=== PATIENT | male | born 1975 | race Caucasian/White ===

== ENCOUNTER 2016-09-18 06:28 | Day surgery (SDC) | payer MEDICAID ==
[2016-09-18] MEDS ORDERED: PROMETHAZINE HCL 25 MG/ML VIAL ONE (07:28)
[2016-09-18] MEDS ORDERED: PROMETHAZINE HCL 25 MG/ML VIAL IVP ONE (07:30)
[2016-09-18] MEDS ORDERED: MIDAZOLAM 2 MG/2 ML VIAL ONE (07:56)
--- NOTE | 2016-09-18 09:13 | GPN ---
[f rep st] PROCEDURE NOTE DATE OF PROCEDURE: 09/18/2016 PROCEDURE: Colonoscopy with snare polypectomy, biopsy. INDICATION: The patient is a 41-year-old male with a history of C difficile colitis who presents with complaints of abdominal pain as well as diarrhea. CONSENT: Risks, benefits, and alternatives of the procedure were discussed in great detail with the patient. Risk of infection, bleeding, perforation, and sedation were discussed. All questions answered. Informed consent obtained. MEDICATIONS: Propofol. Please see anesthesiology record for details. ESTIMATED BLOOD LOSS: Insignificant. COLONOSCOPY: A rectal exam was done performed and no palpable masses felt. The scope was introduced into the rectum and advanced to the cecum where the ileocecal valve and appendiceal orifice were seen. The quality of prep was good. The terminal ilium was intubated and was normal in appearance. Biopsies were taken to rule out ileitis. Random biopsies were taken throughout the colon. No evidence of colitis was seen. In the descending colon, a 6 mm polyp was seen and removed by snare polypectomy. In the sigmoid colon, 3-4 flat, erythematous lesions were noted. They were all about 1cm in size. I suspect that they are prolapsing folds. Biopsies were taken. Multiple sigmoid diverticula were noted. Retroflexion was performed, and no lesion was noted. IMPRESSION: 1. Biopsies taken to rule out ileitis. 2. Random biopsies taken throughout the colon. 3. Descending colon polyp, status post snare polypectomy. 4. Biopsies taken of possible prolapsing mucosa versus polypoid lesion in sigmoid colon. RECOMMENDATIONS: 1. Follow up on biopsy results. 2. Return to the office in 4 weeks. /[id number]/MODL MTDD
[2016-09-18] MEDS ORDERED: fentaNYL 100 MCG/2 ML INJ ONE (09:28)
--- NOTE | 2016-09-18 10:26 | DX ---
Abdomen, Single View Clinical Indication: Abdominal pain after colonoscopy. Findings: Moderate amount of gas is seen throughout the small bowel and the colon. No evidence of pne umoperitoneum. Liver size is normal. Punctate calcifications over the kidneys seen on prior examinati on are not visualized today. Impression: No evidence of perforation post colonoscopy.
[2016-09-18] MEDS ORDERED: HYDROmorphONE/DILAUDID 2 MG/ML SYR ONE (10:37)
== END 2016-09-18 13:55 | disposition home or self-care (01) ==
LOC: FPAT 06:28 → FSGY 06:28 → FPAT 13:55
PROVIDERS: ATTEND Internal Medicine Gastroenterology
PROC: 0DBB8ZX Excision of Ileum, Via Natural or Artificial Opening Endoscopic, Diagnostic (ICD-10-PCS; 2016-09-18)
PROC: 0DBN8ZX Excision of Sigmoid Colon, Via Natural or Artificial Opening Endoscopic, Diagnostic (ICD-10-PCS; 2016-09-18)
PROC: 0DBE8ZX Excision of Large Intestine, Via Natural or Artificial Opening Endoscopic, Diagnostic (ICD-10-PCS; 2016-09-18)
PROC: 0DBM8ZX Excision of Descending Colon, Via Natural or Artificial Opening Endoscopic, Diagnostic (ICD-10-PCS; principal; 2016-09-18 08:00)
DX: K63.5 Polyp of colon (principal); R19.7 Diarrhea, unspecified; R10.9 Unspecified abdominal pain; R11.2 Nausea with vomiting, unspecified; Z86.19 Personal history of other infectious and parasitic diseases; Z87.891 Personal history of nicotine dependence; Z79.891 Long term (current) use of opiate analgesic
CPT/HCPCS: J1170; J2250; J2550; J3010

== ENCOUNTER 2016-09-21 17:13 | Inpatient (IN) | payer MEDICAID ==
[2016-09-21] MEDS ORDERED: ONDANSETRON 4 MG/2 ML VIAL ONE (17:34)
[2016-09-21] MEDS ORDERED: HYDROmorphONE/DILAUDID 1 MG/ML SYR ONE ×2 (17:34→21:05)
--- NOTE | 2016-09-21 17:37 | EDPHY ---
H & P Stated Complaint: ABDOMINAL PAIN, NAUSEA, VOMITING SINCE WEDNESDAY AFTER COLONOSCOPY Time Seen by Provider: 09/21/16 17:22 HPI/ROS: CHIEF COMPLAINT: Abdominal pain HISTORY OF PRESENT ILLNESS: This patient is a 41 year old male three days status post-colonoscopy who presents to the Emergency Department complaining of moderate to severe abdominal pain that began immediately following the procedure on Wednesday. His pain resolved on Wednesday evening when he was sent home but returned by Wednesday morning and has persisted since then. He likens his pain to the pain he has experienced with kidney stones in the past. He also reports vomiting with one episode of hematemesis. His nausea has not been alleviated with Phenergan or Zofran; his pain has not been alleviated with oxycodone. He denies blood in stool, diarrhea, or fever. He has been passing gas. He has a complicated medical history which includes chronic abdominal pain and vomiting, Clostridium difficile colitis, kidney stone requiring ureteral stent and known renal stones, and diverticulitis. He is followed by Dr. Ingram, x ray service technician. REVIEW OF SYSTEMS: A 10 point review of systems was performed and is negative with the exception of the elements mentioned in the history of present illness. Source: Patient Exam Limitations: No limitations - Personal History Current Tetanus Diphtheria and Acellular Pertussis (TDAP): Yes Tetanus Vaccine Date: 2006 - Medical/Surgical History Hx Asthma: No Hx Chronic Respiratory Disease: No Hx Diabetes: No Hx Cardiac Disease: No Hx Renal Disease: No Hx Cirrhosis: No Hx Alcoholism: No Hx HIV/AIDS: No Hx Splenectomy or Spleen Trauma: No Other PMH: PMH: Renal stones and ureterolithiasis requiring stent, IBS, diverticulitis with microperforation, Clostridium difficile. PSH:HEMORRHOIDS, R ureter stent 12/20 - Social History Smoking Status: Former smoker Additional Social History: He is single, currently unemployed. - Physical Exam Exam: General Appearance: Alert, appears in pain. Eyes: Pupils equal and round, no conjunctival injection, no discharge. Anicteric. ENT, Mouth: Mucous membranes are dry, no oropharyngeal erythema or edema. Neck: No lymphadenopathy, supple. Respiratory: Lungs are clear to auscultation; no wheezes, rales, or rhonchi. Cardiovascular: Regular rate and rhythm; no murmur, rub, or gallop. Gastrointestinal: Abdomen is soft and diffusely tender with lower abdominal voluntary guarding, no rebound, no masses or organomegaly, bowel sounds present. Skin: Warm and dry, no rashes, normal color. Back: Nontender to palpation over the thoracolumbar spine. No CVA tenderness. Extremities: No lower extremity edema, no calf tenderness or swelling. Neurological: Alert and oriented. Moving all four extremities easily and equally. Psychiatric: Normal affect. Constitutional: Initial Vital Signs Temperature (C) 37.1 C 09/21/16 17:14 Heart Rate 100 09/21/16 17:14 Respiratory Rate 18 09/21/16 17:14 Blood Pressure 137/96 H 09/21/16 17:14 O2 Sat (%) 94 09/21/16 17:14 O2 Delivery Mode Room Air Allergies/Adverse Reactions: bee stings, wasp stings Allergy (Intermediate, Uncoded 09/21/16 17:17) swelling Home Medications: Medication Instructions Recorded Nortriptyline HCl [Pamelor 10 mg 10 mg PO HS 09/11/16 (*)] Ondansetron Odt [Zofran Odt 4 mg 4 mg PO Q4 PRN 09/21/16 (*)] Promethazine HCl [Phenergan 25mg 25 mg PO DAILY PRN 09/21/16 (*)] oxyCODONE IR [Oxycodone Ir (*)] 5 mg PO Q6 PRN 09/21/16 Medical Decision Making - Diagnostics Imaging: Study: CT of the abdomen Indication: Pain Results: CT scan of the abdomen was obtained. The results of the study are: diverticulitis with inflammation of the sigmoid colon that is worse than on a CT scan done 1 month ago, inferolateral sigmoid colon perforation, no abscess, no free air under the diaphragm. The study was read by the radiologist, Dr. Luther Gallagher. I viewed the images myself on the PACS system. ED Course/Re-evaluation: Prior medical records and imaging obtained since the patient's colonoscopy was reviewed by myself. IV established. 1L IV NS, 1mg IV Dilaudid, and 4mg IV Zofran administered for pain and nausea. 645 p.m.: Patient has received 1.5 mg of IV Dilaudid and is feeling somewhat better, although still with pain. Abdominal exam is improved. He continues with lower abdominal pain but no guarding. He was told by his x ray service technician that he would need a CT scan if his pain persisted post colonoscopy. He has agreed to a CT scan. He he has had many CT scans of his abdomen and pelvis over the last few years and understands the risk of radiation in this setting. 843 p.m.: CT results reported to me by Dr. Luther Gallagher, radiologist. Sigmoid diverticulitis with inferolateral perforation visualized. Perforation could be related to his colonoscopy and this is the patient's belief; he describes pain upon awakening from anesthesia post colonoscopy. Perforation could also be due to diverticulitis. I discussed these results with the patient as well as my recommendation for admission. He is agreeable to this. He has required repeated doses of Dilaudid for pain control. He has had serial abdominal exams throughout his stay in the emergency department. His exam waxes and wanes. I have spoken with Gastroenterology, Dr. Anai Boyd. Gastroenterology will see the patient in the morning, sooner if required. 9:02 p.m.: Consultation with Dr. Maryjo Allison, hospitalist, who accepts admission. Invanz 1 g IV ordered. He states that he has had difficulty with vancomycin in the past. 10:15 p.m.: I discussed the case with Dr. Aleksandar Monaco, general surgery, who will visit the patient in the hospital. Patient continues with significant abdominal pain, primarily in the lower quadrants, worse on the left than on the right. At this time he is exhibiting guarding. Dr. Monaco evaluated the patient in the emergency department and has recommended abdominal exploration. I was not present for this conversation but the patient has refused surgery. Patient's white blood cell count is 10.9, slightly elevated. He has not had fever. He does not meet sepsis criteria. Differential Diagnosis: I considered a differential diagnosis that includes but is not limited to diverticulitis with perforation, bowel perforation secondary to colonoscopy performed on September 18, exacerbation of chronic abdominal pain, colitis ( Clostridium difficile or other etiology), intra-abdominal abscess, appendicitis , ureterolithiasis, and urinary tract infection. - Data Points Laboratory Results: Laboratory Results 09/21/16 17:49 09/21/16 17:49 Medications Given: Discontinued Medications Hydromorphone HCl (Dilaudid) 1 mg IVP EDNOW ONE Stop: 09/21/16 17:51 Last Admin: 09/21/16 18:00 Dose: 1 mg Hydromorphone HCl (Dilaudid) 0.5 mg IVP EDNOW ONE Stop: 09/21/16 18:13 Last Admin: 09/21/16 18:24 Dose: 0.5 mg Hydromorphone HCl (Dilaudid) 0.5 mg IVP EDNOW ONE Stop: 09/21/16 21:20 Last Admin: 09/21/16 21:19 Dose: 0.5 mg Hydromorphone HCl (Dilaudid) 0.5 mg IVP EDNOW ONE Stop: 09/21/16 20:01 Last Admin: 09/21/16 20:00 Dose: 0.5 mg Hydromorphone HCl (Dilaudid) 0.5 mg IVP Q4HRS PRN PRN Reason: Pain, Severe Unable to Take PO Stop: 10/01/16 22:24 Last Admin: 09/21/16 22:25 Dose: 0.5 mg Hydromorphone HCl (Dilaudid) 0.2 - 0.4 mg IVP Q3 PRN PRN Reason: Pain, Severe Unable to Take PO Stop: 10/02/16 00:29 Last Admin: 09/22/16 01:16 Dose: 0.4 mg Hydromorphone HCl (Dilaudid) 1 mg IVP ONCE ONE Stop: 09/22/16 02:09 Last Admin: 09/22/16 02:20 Dose: 1 mg Sodium Chloride (Ns) 1,000 mls @ 0 mls/hr IV ONCE ONE PRN Reason: Wide Open Stop: 09/21/16 17:51 Last Admin: 09/21/16 18:01 Dose: 1,000 mls Ertapenem 1 gm/ Sodium (Chloride) 100 mls @ 200 mls/hr IV EDNOW ONE PRN Reason: Protocol Stop: 09/21/16 21:44 Last Admin: 09/21/16 21:55 Dose: 100 mls Ondansetron HCl (Zofran) 4 mg IVP EDNOW ONE Stop: 09/21/16 17:51 Last Admin: 09/21/16 18:01 Dose: 4 mg Departure - Departure Disposition: [facility] Clinical Impression: Perforation of sigmoid colon Diverticulitis Qualifiers: Diverticulitis site: large intestine Diverticulitis bleeding: without bleeding Diverticulitis complication: with perforation Qualifier Code: (K57.20) Diverticulitis of large intestine with perforation and abscess without bleeding Condition: Fair Report Scribed for: Agnieszka Samson Report Scribed by: Tomasa Livingston Date of Report: 09/21/16 Time of Report: 17:34 Physician Review and Approval Statement: 09/22/16 11:05 Portions of this note were transcribed by the outside medical sales representative. I, Dr. Agnieszka Samson, personally performed the history, physical exam, and medical decision- making; and confirmed the accuracy of the information in the transcribed note.
[2016-09-21] MEDS ORDERED: ONDANSETRON 4 MG/2 ML VIAL IVP ONE (17:50)
[2016-09-21] MEDS ORDERED: NS 1,000 ML IV ONE (17:50)
[2016-09-21] MEDS ORDERED: HYDROmorphONE/DILAUDID 1 MG/ML SYR IVP ONE ×4 (17:50→21:19)
[2016-09-21] MEDS ORDERED: IOPAMIDOL (ISOVUE-300) 50 ML VIAL IV ONE (19:24)
--- NOTE | 2016-09-21 21:09 | CT ---
CT Abdomen and Pelvis, With Intravenous Contrast History: Severe pain following colonoscopy on September 18, 2016. History of diverticulitis, with richelle roperforation. History of nephrolithiasis. Technique: The patient received 90 mL of Isovue-300 intravenously, given by automated power machine injector. Multidetector helical CT was performed through the abdomen and pelvis using dose reduction technology. Findings: Wall thickening of the sigmoid colon appears worse than August 22, 2016. There are a fe w small bubbles of extracolonic gas in nearby tissues. Coronal images suggest a perforation along th e inferior and lateral margins of the sigmoid colon, with nearby edema. A fluid-filled abscess is no t identified. No free air under the diaphragm. No dilatation of bowel. Numerous stones in the kidneys are similar to previous study, with no hydronephrosis. No ureteral st ones are found. No stones in the urinary bladder. The urinary bladder is not distended. The lung bases are clear. The liver, spleen, pancreas, adrenal glands, and gallbladder are normal. Impressions 1. Active inflammation of sigmoid colon, with perforation inferolaterally. Appearance has worsened in the last month. 2. Bilateral nephrolithiasis, without acute complication. I discussed results with Dr. Samson at 2041 hours.
[2016-09-21] MEDS ORDERED: ERTAPENEM 1 GM in NS 100 ML IV ONE (21:15)
[2016-09-21] MEDS ORDERED: HYDROmorphONE/DILAUDID 1 MG/ML SYR IVP PRN (22:25)
[2016-09-21 22:30] LABS: ANION GAP 12 mEq/L (8-16); CALCIUM 9.7 mg/dL (8.5-10.4); CARBON DIOXIDE 24 mEq/l (22-31); CHLORIDE 106 mEq/L (97-110); CREATININE 1.2 mg/dL (0.7-1.3); GLOMERULAR FILTRATION RATE > 60; GLUCOSE 103 mg/dL (70-100); SODIUM 142 mEq/L (134-144)
[2016-09-21 22:31] LABS: % IMMATURE GRANULYOCYTES 0.3 % (0.0-1.1); ABSOLUTE IMMATURE GRANULOCYTES 0.03 10^3/uL (0.00-0.10); ADD DIFF? NO; ADD MORPH? NO; ADD SCAN? NO; ATYPICAL LYMPHOCYTE FLAG 10 (0-99); FRAGMENT RBC FLAG 0 (0-99); HEMATOCRIT 44.9 % (40.0-51.0); HEMOGLOBIN 15.5 g/dL (13.7-17.5); LEFT SHIFT FLG 20 (0-99); LIPEMIA HEMOLYSIS FLAG 90 (0-99); MEAN CELL HEMOGLOBIN 30.2 pg (27.9-34.1); MEAN CELL HEMOGLOBIN CONCENTR. 34.5 g/dL (32.4-36.7); MEAN CELL VOLUME 87.5 fL (81.5-99.8); PLATELET CLUMPS FLAG 10 (0-99); PLATELET COUNT 225 10^3/uL (150-400); RED BLOOD CELL COUNT 5.13 10^6/uL (4.40-6.38); RED CELL DISTRIBUTION WIDTH 12.5 % (11.5-15.2)
[2016-09-22] MEDS ORDERED: ACETAMINOPHEN 325 MG TAB PO PRN (00:30)
[2016-09-22] MEDS ORDERED: HYDROmorphONE/DILAUDID 1 MG/ML SYR IVP PRN ×2 (00:30→02:09)
[2016-09-22] MEDS ORDERED: ONDANSETRON DISINTEGRATING 4 MG TAB PO PRN (00:30)
[2016-09-22] MEDS: NS 1,000 ML IV SCH ×2 (00:47→08:06)
[2016-09-22 01:57] LABS: COLOR YELLOW; LEUKOCYTE ESTERASE,URINE NEGATIVE (NEGATIVE); NITRITE,URINE NEGATIVE (NEGATIVE)
[2016-09-22] MEDS ORDERED: HYDROmorphONE/DILAUDID 1 MG/ML SYR IVP ONE (02:08)
--- NOTE | 2016-09-22 03:31 | GCON ---
[f rep st] CONSULTATION CHIEF COMPLAINT: Abdominal pain. HISTORY OF PRESENT ILLNESS: This is a 41-year-old male with a significant past medical history consisting of C difficile colitis and diverticulitis, who last Wednesday underwent colonoscopy as part of a diagnostic workup for the above 2 findings. The patient states that he went into the colonoscopy in his usual state of health. However, awoke from a colonoscopy in a significant amount of diffuse abdominal pain. He does endorse that pain did resolve enough for him to go home and feel comfortable that night, but does state that he has been in a significant amount of excruciating abdominal pain through the weekend, which prompted his visit here. He describes the pain as focal left lower quadrant, sharp without radiation, 10 out of 10 in intensity. In addition to the pain, he does endorse nausea with vomiting, with 1 episode of hematemesis at home. He does endorse that his nausea has not been alleviated with either Phenergan or Zofran, and his pain has been not controlled at all with oral oxycodone. He denies having fevers, but does endorse chills at home. He states that his main complaint is pain. PAST MEDICAL HISTORY: Kidney stones, irritable bowel syndrome, diverticulitis, C difficile colitis. PAST SURGICAL HISTORY: Hemorrhoidectomy. Denies having any previous abdominal surgeries. CURRENT MEDICATIONS: Nortriptyline, Zofran, Phenergan, and oxycodone. REVIEW OF SYSTEMS: A full 10-point review was performed and unless explicitly stated above is otherwise negative. PHYSICAL EXAM: VITAL SIGNS: Temperature 37.1, heart rate 100, blood pressure 137/96, respirations 18, and he is 94% on room air. GENERAL: He is alert and oriented, in a moderate amount of distress. CV: He is tachycardic without any murmurs. LUNGS: Clear. ABDOMEN: Diffusely rigid. Markedly tender in the left lower quadrant with rebound tenderness and guarding . EXTREMITIES: Warm. LABS: White blood cell count elevated at 10.9 with left shift. His chemistry is unremarkable with the exception of an elevated glucose at 103. CT scan of the abdomen and pelvis was performed which shows active inflammation of the sigmoid colon with perforation inferolaterally. The appearance has worsened in the last month since his previous film. Bilateral nephrolithiasis without complication. ASSESSMENT AND PLAN: 41-year-old male, status post colonoscopy with perforation of the sigmoid colon. I had a very irwin conversation with the patient today that I am significantly concerned about his exam and his CT scan findings. It is unclear whether or not he has an active diverticular attack, or whether or not this free air is from a perforation from his recent procedure , but given his very concerning abdominal exam I recommended that the patient undergo abdominal exploration in the operating room. I discussed with him the reasons behind this. 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 I attempted to enlighten him as to his diagnosis and to my concern about his abdominal exam on multiple occasions. I was dismissed on multiple occasions after offering him surgery and telling him my concern. He stated over and again vehemently that he wanted to talk with a gastrologist before pursuing anything, but that he would be hesitant at all to ever consider surgery especially here at the [facility], then referring to his mothers previous protracted hospital course after surgery. I counseled the patient with his nurse presents, and once again relayed my concerns to the emergency department attending and the patient's nurse. I will continue to follow. I am very concerned about his exam. I do feel that he does warrant operative exploration given his CT scan findings and his physical exam. This was denied by the patient in the even in light of me counseling him that he could become very sick. I will continue to follow. I would continue IV antibiotics and n.p.o. bowel rest in the meantime. /[id number]/MODL MTDD
[2016-09-22] MEDS ORDERED: NALOXONE HCL 0.4 MG/ML INJ IVP PRN (04:04)
[2016-09-22] MEDS: HYDROmorphONE/DILAUDID 6 MG/30 ML PCA IV PRN ×2 (04:31→21:33)
--- NOTE | 2016-09-22 05:10 | PDGENHP ---
History and Physical - Chief Complaint abdominal pain - History of Present Illness Patient is a 41-year-old male with a history of chronic nephrolithiasis, history of diverticulitis and C diff colitis and IBS who presents to the ED complaining of abdominal pain. He underwent colonoscopy on 09/18 and reports lower abdominal pain has been present since awakening from anesthesia. He is able to pass gas and is having bowel movements, denies any nausea or vomiting, only pain. He also denies any fevers, chills or urinary symptoms. 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 On arrival to the ED patient was afebrile and hemodynamically stable. He was complaining of significant abdominal pain. CT abdomen and pelvis was obtained and revealed sigmoid diverticulitis, worse from previous studies and now with new evidence of bowel perforation. Surgery was consulted and patient was admitted to the hospital service for further management. History Information - Allergies/Home Medication List Allergies/Adverse Reactions: bee stings, wasp stings Allergy (Intermediate, Uncoded 09/21/16 17:17) swelling Home Medications: Nortriptyline HCl [Pamelor 10 mg (*)] 10 mg PO HS 09/11/16 [Last Taken 09/19/16 21:00] Ondansetron Odt [Zofran Odt 4 mg (*)] 4 mg PO Q4 PRN 09/21/16 [Last Taken Unknown] Promethazine HCl [Phenergan 25mg (*)] 25 mg PO DAILY PRN 09/21/16 [Last Taken ] oxyCODONE IR [Oxycodone Ir (*)] 5 mg PO Q6 PRN 09/21/16 [Last Taken Unknown] I have personally reviewed and updated: family history, medical history, social history, surgical history - Past Medical History Additional medical history: Chronic nephrolithiasis. History of diverticulitis. History of C diff colitis. ?IBS - Surgical History Additional surgical history: Ureteral stent - Family History Positive for: non-pertinent - Social History Smoking Status: Former smoker (Quit 9 years ago) Alcohol Use: None Drug Use: None Additional social history: Patient lives with mother Review of Systems ROS: 10pt was reviewed & negative except for what was stated in HPI & below Physical Exam Temp Pulse Resp BP Pulse Ox 36.8 C 74 12 136/88 H 96 01/16/17 23:08 09/21/16 23:08 09/21/16 23:08 09/21/16 23:08 09/21/16 23:08 Constitutional: no apparent distress, appears nourished, uncomfortable Eyes: PERRL, anicteric sclera, EOMI Ears, Nose, Mouth, Throat: moist mucous membranes, hearing normal, ears appear normal, no oral mucosal ulcers Cardiovascular: regular rate and rhythym, no murmur, rub, or gallop, pulses symmetric bilaterally, tachycardia, No JVD, No edema Peripheral Pulses: 2+: dorsalis-pedis (R), dorsalis-pedis (L) Respiratory: no respiratory distress, no rales or rhonchi, clear to auscultation Gastrointestinal: guarding, other (Hypoactive bowel sounds, tenderness to palpation in suprapubic and left lower quadrant.), No rebound Genitourinary: no bladder fullness, no bladder tenderness Skin: warm, normal color, no rashes or abrasions, no fluctuance, no induration, No mottled Musculoskeletal: full muscle strength, no muscle tenderness, normal joint ROM, no joint effusions Neurologic: AAOx3, sensation intact bilaterally, CN II-XII Intact, No weakness, No numbness Psychiatric: not anxious, not encephalopathic, thought process linear Lab Data & Imaging Review 09/21/16 17:49 09/21/16 17:49 WBC 10.92 10^3/uL (3.80-9.50) H 09/21/16 17:49 RBC 5.13 10^6/uL (4.40-6.38) 09/21/16 17:49 Hgb 15.5 g/dL (13.7-17.5) 09/21/16 17:49 Hct 44.9 % (40.0-51.0) 09/21/16 17:49 MCV 87.5 fL (81.5-99.8) 09/21/16 17:49 MCH 30.2 pg (27.9-34.1) 09/21/16 17:49 MCHC 34.5 g/dL (32.4-36.7) 09/21/16 17:49 RDW 12.5 % (11.5-15.2) 09/21/16 17:49 Plt Count 225 10^3/uL (150-400) 09/21/16 17:49 MPV 10.0 fL (8.7-11.7) 09/21/16 17:49 Neut % (Auto) 61.8 % (39.3-74.2) 09/21/16 17:49 Lymph % (Auto) 28.5 % (15.0-45.0) 09/21/16 17:49 [place] % (Auto) 7.8 % (4.5-13.0) 09/21/16 17:49 Eos % (Auto) 1.2 % (0.6-7.6) 09/21/16 17:49 Baso % (Auto) 0.4 % (0.3-1.7) 09/21/16 17:49 Nucleat RBC Rel Count 0.0 % (0.0-0.2) 09/21/16 17:49 Absolute Neuts (auto) 6.76 10^3/uL (1.70-6.50) H 09/21/16 17:49 Absolute Lymphs (auto) 3.11 10^3/uL (1.00-3.00) H 09/21/16 17:49 Absolute Monos (auto) 0.85 10^3/uL (0.30-0.80) H 09/21/16 17:49 Absolute Eos (auto) 0.13 10^3/uL (0.03-0.40) 09/21/16 17:49 Absolute Basos (auto) 0.04 10^3/uL (0.02-0.10) 09/21/16 17:49 Absolute Nucleated RBC 0.00 10^3/uL (0-0.01) 09/21/16 17:49 Immature Gran % 0.3 % (0.0-1.1) 09/21/16 17:49 Immature Gran # 0.03 10^3/uL (0.00-0.10) 09/21/16 17:49 Sodium 142 mEq/L (134-144) 09/21/16 17:49 Potassium 4.0 mEq/L (3.5-5.2) 09/21/16 17:49 Chloride 106 mEq/L (97-110) 09/21/16 17:49 Carbon Dioxide 24 mEq/l (22-31) 09/21/16 17:49 Anion Gap 12 mEq/L (8-16) 09/21/16 17:49 BUN 12 mg/dL (7-23) 09/21/16 17:49 Creatinine 1.2 mg/dL (0.7-1.3) 09/21/16 17:49 Estimated GFR > 60 09/21/16 17:49 Glucose 103 mg/dL (70-100) H 09/21/16 17:49 Calcium 9.7 mg/dL (8.5-10.4) 09/21/16 17:49 Urine Color YELLOW 09/22/16 01:51 Urine Appearance CLEAR 09/22/16 01:51 Urine pH 5.0 (5.0-7.5) 09/22/16 01:51 Ur Specific [place] 1.035 (1.002-1.030) H 09/22/16 01:51 Urine Protein NEGATIVE (NEGATIVE) 09/22/16 01:51 Urine Ketones TRACE (NEGATIVE) H 09/22/16 01:51 Urine Blood NEGATIVE (NEGATIVE) 09/22/16 01:51 Urine Nitrate NEGATIVE (NEGATIVE) 09/22/16 01:51 Urine Bilirubin NEGATIVE (NEGATIVE) 09/22/16 01:51 Urine Urobilinogen NEGATIVE EU (0.2-1.0) 09/22/16 01:51 Ur Leukocyte Esterase NEGATIVE (NEGATIVE) 09/22/16 01:51 Urine Glucose NEGATIVE (NEGATIVE) 09/22/16 01:51 Visualized and Interpreted imaging results: Yes Interpretation: CT abdomen/pelvis: Sigmoid diverticulitis with inferior/ posterior perforation/free air Assessment & Plan Assessment: Patient is a 41-year-old male with a history of nephrolithiasis, diverticulitis and chronic pain syndrome who presents to the ED complaining of abdominal pain after undergoing colonoscopy 09/2012. CT abdomen and pelvis reveals severe sigmoid diverticulitis with new colonic perforation. Plan: # bowel perforation, sigmoid diverticulitis Patient with known diverticulitis and CT reveals worsening of sigmoid inflammation. In addition patient has new intra-abdominal free air. Bowel perforation could be related to worsening of the diverticulitis versus recent colonoscopy. Will cover with antibiotics for acute diverticulitis. GI has been notified. Surgery also on board, however patient adamantly refuses surgical intervention at this time requesting to speak with his manager water wastewater before proceeding with any procedure. Patient currently remains hemodynamically stable and afebrile however is in significant amount of abdominal pain. 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 # leukocytosis Likely related to intraabdominal pathology, however, pt afebrile and does not meet sepsis criteria at this time. Will cont ertapenem for intraabdominal coverage. # nephrolithiasis Present bilaterally as visualized on CT. Will cont IVF hydration and pain control. # dispo: admit to inpt service for > 2 MN stay # gen: NPO DVT ppx: SCDs Full code
[2016-09-22 05:35] LABS: % IMMATURE GRANULYOCYTES 0.3 % (0.0-1.1); ABSOLUTE IMMATURE GRANULOCYTES 0.02 10^3/uL (0.00-0.10); ADD DIFF? NO; ADD MORPH? NO; ADD SCAN? NO; ATYPICAL LYMPHOCYTE FLAG 10 (0-99); FRAGMENT RBC FLAG 0 (0-99); HEMATOCRIT 37.3 % (40.0-51.0); LEFT SHIFT FLG 0 (0-99); LIPEMIA HEMOLYSIS FLAG 90 (0-99); MEAN CELL HEMOGLOBIN 30.2 pg (27.9-34.1); MEAN CELL HEMOGLOBIN CONCENTR. 34.9 g/dL (32.4-36.7); MEAN CELL VOLUME 86.5 fL (81.5-99.8); MEAN PLATELET VOLUME 9.6 fL (8.7-11.7); PLATELET CLUMPS FLAG 0 (0-99); PLATELET COUNT 184 10^3/uL (150-400); RED BLOOD CELL COUNT 4.31 10^6/uL (4.40-6.38); RED CELL DISTRIBUTION WIDTH 12.4 % (11.5-15.2)
[2016-09-22 05:44] LABS: INR 1.07 (0.83-1.16); PROTIME(PATIENT) 13.8 SEC (12.0-15.0)
[2016-09-22 05:48] LABS: ALANINE AMINOTRANSFERASE 35 IU/L (21-72); ALBUMIN 3.5 g/dL (3.5-5.0); ALKALINE PHOSPHATASE 68 IU/L (38-126); ANION GAP 9 mEq/L (8-16); ASPARTATE AMINOTRANSFERASE 18 IU/L (17-59); BILIRUBIN,TOTAL 0.9 mg/dL (0.1-1.4); CALCIUM 8.8 mg/dL (8.5-10.4); CARBON DIOXIDE 25 mEq/l (22-31); CHLORIDE 108 mEq/L (97-110); GLOMERULAR FILTRATION RATE > 60; GLUCOSE 94 mg/dL (70-100); SODIUM 142 mEq/L (134-144); TOTAL PROTEIN 5.7 g/dL (6.3-8.2)
[2016-09-22] MEDS: ERTAPENEM 1 GM in NS 100 ML IV SCH (08:06)
[2016-09-22] MEDS: ONDANSETRON 4 MG/2 ML VIAL IVP PRN ×3 (08:59→23:03)
--- NOTE | 2016-09-22 10:43 | SOAPPROG ---
SOAP Progress Note Assessment/Plan: Assessment/Plan - 41yo M c complicated diverticulitis c free air - Discussed with patient again that I am concerned about his exam despite normalization of WBC. he continues to have a very high need for IV narcotics. I once again told the patient my recommendation would be surgery and he declined. He stated that he knows Dr Person from his mothers hospitalization here previously and would want him to be his surgeon. I have reached out to Dr Person who will see the patient today. Will cont to follow and help coordinate care 09/22/16 10:38 Subjective: Still in a lot of pain, now with more nausea Objective: Vital Signs Temp Pulse Resp BP Pulse Ox 36.6 C 74 14 135/83 H 94 09/22/16 10:00 09/22/16 10:00 09/22/16 10:00 09/22/16 10:00 09/22/16 10:00 Laboratory Results 09/22/16 05:01 09/22/16 05:01 09/21/16 09/22/16 09/23/16 05:59 05:59 05:59 Intake Total 2100 Output Total 300 Balance 1800 PT 13.8 SEC (12.0-15.0) 09/22/16 05:01 INR 1.07 (0.83-1.16) 09/22/16 05:01 ICD10 Worksheet Patient Problems: Problems Problem Status Diagnosed C. difficile diarrhea Acute 07/24/16 Chronic pain Acute Diverticulitis Acute Intractable vomiting Acute Perforation of sigmoid colon Acute Vomiting and diarrhea Acute Abdominal pain Acute Colitis Acute Elevated lipase Acute Free intraperitoneal air Acute Leukocytosis Acute Nausea and vomiting Acute Right distal ureteral calculus Acute Severe sepsis Acute Vomiting Acute
--- NOTE | 2016-09-22 13:00 | HOSPPROG ---
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 Person - continue IV antibiotics - gastroenterology additionally to consult - continue IV Dilaudid # acute leukocytosis- white blood cell count 10.9-> 7.2 this morning on antibiotics oxygen saturation 95% on room air - continue ertapenem # prophylaxis holding Lovenox secondary to perforation and possible surgical requirements # diet NPO # despite all- > 2 MN as requiring acute monitoring IV narcotics and potential surgical intervention I have discussed the case with Gastroenterology Dr. 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 Objective: Vital Signs Temp Pulse Resp BP Pulse Ox 36.9 C 79 16 130/84 H 95 09/22/16 12:00 09/22/16 12:00 09/22/16 12:00 09/22/16 12:00 09/22/16 12:00 Laboratory Results 09/22/16 05:01 09/22/16 05:01 09/21/16 09/22/16 09/23/16 05:59 05:59 05:59 Intake Total 2100 Output Total 300 Balance 1800 PT 13.8 SEC (12.0-15.0) 09/22/16 05:01 INR 1.07 (0.83-1.16) 09/22/16 05:01 - Physical Exam Constitutional: appears nourished Eyes: anicteric sclera Ears, Nose, Mouth, Throat: moist mucous membranes Cardiovascular: regular rate and rhythym Respiratory: no respiratory distress, no rales or rhonchi Gastrointestinal: tenderness, guarding, No normoactive bowel sounds, No rebound Genitourinary: no bladder fullness Skin: warm, normal color Musculoskeletal: No asymmetric calves Neurologic: AAOx3 Psychiatric: agitated Lymph, Heme, Immunologic: no cervical LAD ICD10 Worksheet Patient Problems: Problems Problem Status Diagnosed C. difficile diarrhea Acute 07/24/16 Chronic pain Acute Diverticulitis Acute Intractable vomiting Acute Perforation of sigmoid colon Acute Vomiting and diarrhea Acute Abdominal pain Acute Colitis Acute Elevated lipase Acute Free intraperitoneal air Acute Leukocytosis Acute Nausea and vomiting Acute Right distal ureteral calculus Acute Severe sepsis Acute Vomiting Acute
--- NOTE | 2016-09-22 14:33 | GHP ---
[f rep st] HISTORY AND PHYSICAL DATE OF ADMISSION: 09/21/2016 The patient is known to me from previous admissions. He apparently requests a second opinion as to m anagement of his current sigmoid diverticulitis. The patient is a 41-year-old male who had a colonoscopy on 09/18 after having had some diverticulitis in August. He states he had severe pain upon awakening from his procedure, where he had been pain -free prior to the procedure. He eventually was admitted to the hospital, where a CT scan of the abd omen shows thickening around the sigmoid colon. There is no diffuse free air elsewhere in the abdome n, although there are several small bubbles near the sigmoid colon. ALLERGIES: Bees. No medications. CURRENT MEDICATIONS: Pamelor, Zofran, Phenergan, oxycodone 5 mg p.o. q.6 hours p.r.n. for neck pain. FAMILY HISTORY: Remarkable for his mother having a very extended hospital stay at [facility] several years ago with multiple colonic procedures, fistulas, etc. PHYSICAL EXAMINATION: GENERAL: Oriented, cooperative male. Body habitus is well nourished and nono bese. ABDOMEN: Soft, benign. Minimal tenderness, left lower quadrant suprapubically. No guarding. No masses. The patient states he is passing flatus. Had a stool several days ago. White blood count today is normal. It was 10.9 on admission. I have reviewed his CT scan. He is afebrile. ASSESSMENT: Sigmoid diverticulitis, possibly acute episode following colonoscopy, possible microperf oration during air insufflation. In any event, he clearly has CT findings of thickening around the s igmoid colon. His current exam, normal white count, and afebrile state make me think he will likely improve without surgery. It is possible that he will go on to have further attacks of diverticulitis , even if this heals, but he is very unexcited about a colectomy at this time. I think it is safe to continue medical management at this time. I explained to the patient the imprecise nature of our ability to predict who will need colectomy and who will not and that recovering from today's attack in no way assures us that he will not have furt her attacks. However, since he would like to avoid surgery at this time, I think it is reasonable to continue his Invanz, follow him on a daily basis. I will go ahead and start clear liquids, as his a bdomen is soft, benign and he is passing flatus. /[id number]/MODL
[2016-09-22] MEDS: LORazepam 2 MG/ML INJ IVP PRN ×2 (14:55→23:35)
--- NOTE | 2016-09-22 18:25 | GCON ---
[f rep st] CONSULTATION DATE OF CONSULTATION: 09/22/2016 REFERRING PHYSICIAN: Lindsay Maldonado MD REASON FOR CONSULTATION: Abdominal pain. HISTORY OF PRESENT ILLNESS: Briefly, Mr. Noland is a 41-year-old male, who was admitted to the [facility] on 09/21/2016 for the evaluation of abdominal pain. On 09/18/2016, he had undergone a colonoscop y. At that time, colon polyps were discovered and removed. In the postprocedure recovery area, he h ad a significant amount of abdominal pain. Plain x-ray at that time was negative. With additional d oses of narcotic agents, he felt improved and went home. He reports that through Wednesday and Wednesday he continued to have abdominal discomfort. On Wednesday, with pain continuing to not resolve he prese nted to the emergency room. Emergency room evaluation with CT scan was concerning for microperforati on with or without diverticulitis. He has been admitted for management of this. Overnight, he recei yeimy antibiotics and analgesic care. He reports he has had a significant improvement overall in his s ymptoms. He reports he has had a prior history of diverticulitis. His last episode was approximately 1 year a go. He describes being admitted to the hospital, treated with IV antibiotics, discharged home with o ral antibiotics with ultimate convalescence. He believes his current symptoms are very similar to th ose he suffered at that time. ALLERGIES: Bee stings. MEDICATIONS ON ADMISSION: Nortriptyline, Zofran, Phenergan, and oxycodone. SOCIAL HISTORY: He is a former smoker. He does not use drugs or drink alcohol. FAMILY HISTORY: Negative for colon cancer or colon polyps. PAST MEDICAL HISTORY: Includes nephrolithiasis, diverticulitis, C difficile, and possible irritable bowel syndrome. REVIEW OF SYSTEMS: A complete 10 system review was undertaken with the patient and is negative, exce pt for those details described in the history of present illness. PHYSICAL EXAM: GENERAL: This is a well-developed male, in no apparent distress. HEENT: His pupils are equally round, reactive to light and accommodation. Sclerae are nonicteric. His oropharynx is clear. NECK: Supple without lymphadenopathy. HEART: Regular without murmur. ABDOMEN: Soft, but mildly tender in the left lower quadrant. EXTREMITIES: Free of cyanosis, clubbing, edema. NEURO: Grossly nonfocal. PSYCHIATRIC: Reveals normal mood and affect. SKIN: Warm and dry without rash. MUSCULOSKELETAL: His joints show no arthritis. LABORATORY: Shows an admission white count of 10.92, which has fallen to 7.29. INR 1.07. Sodium of 142, potassium of 4.0, chloride of 108, bicarb of 25, BUN of 10, creatinine of 1.0. AST of 18, ALT of 35, alkaline phosphatase of 68, albumin of 3.5. IMAGING: CT scan of the abdomen and pelvis on 09/21/2016 revealed active inflammation in the sigmoid colon with probable perforation inferolaterally. IMPRESSION AND PLAN: I suspect that Narendra has had some combination of microperforation with or withou t diverticulitis. These may be a consequence of his recent endoscopic evaluation. Fortunately, he i s improving with conservative management with IV antibiotics. If he does not improve with IV antibio tic management, he may benefit from a partial colectomy. This is his second attack of diverticulitis with or without microperforation. It is difficult to determine if he will have subsequent attacks. Luckily, he is improving. /[id number]/MODL
[2016-09-22] MEDS: MAG HYDROX/AL HYDROX/SIMETH 30 ML UDCUP PO PRN (23:27)
[2016-09-23] MEDS: NS 1,000 ML IV SCH ×2 (01:40→09:51)
[2016-09-23 05:27] LABS: HEMATOCRIT 37.9 % (40.0-51.0); HEMOGLOBIN 13.5 g/dL (13.7-17.5); MEAN CELL HEMOGLOBIN 30.1 pg (27.9-34.1); MEAN CELL HEMOGLOBIN CONCENTR. 35.6 g/dL (32.4-36.7); MEAN CELL VOLUME 84.4 fL (81.5-99.8); RED BLOOD CELL COUNT 4.49 10^6/uL (4.40-6.38); RED CELL DISTRIBUTION WIDTH 12.4 % (11.5-15.2)
[2016-09-23 05:44] LABS: ANION GAP 9 mEq/L (8-16); CALCIUM 8.6 mg/dL (8.5-10.4); CARBON DIOXIDE 24 mEq/l (22-31); CHLORIDE 107 mEq/L (97-110); CREATININE 0.9 mg/dL (0.7-1.3); GLOMERULAR FILTRATION RATE > 60; GLUCOSE 95 mg/dL (70-100); SODIUM 140 mEq/L (134-144)
[2016-09-23] MEDS: MAG HYDROX/AL HYDROX/SIMETH 30 ML UDCUP PO PRN (07:14)
[2016-09-23] MEDS: ERTAPENEM 1 GM in NS 100 ML IV SCH (07:29)
--- NOTE | 2016-09-23 07:34 | SOAPPROG ---
SOAP Progress Note Assessment/Plan: Assessment: 1. Perforation/Diverticulitis/Abd pain - improving with supportive care and IV Abx Plan: 1. Perforation/Diverticulitis/Abd pain - mgt per surgery - on abx - on iv pain meds - clear liquid diet - no specific recs beyond the above 2. GERD/Hiccups - had hiccups overnight - patient believes this is from GERD - unlikely to be consequence of intraabdominal process, given otherwise improvement - recommend PPI therapy and PRN acid binding agents (i.e. Maalox, sucralfate, Tums, "miracle mouthwash," etc) - will sign off call with questions 09/23/16 07:30 Subjective: CC: bad hiccups S: overnight had GERD and subsequent hiccups no fever no cough no nausea no vomiting improved overall as to abd pain symptoms still needs periodic doses from ATTENDING ANESTHESIOLOGIST Objective: Vital Signs Temp Pulse Resp BP Pulse Ox 36.7 C 70 16 118/82 H 94 09/23/16 07:04 09/23/16 07:04 09/23/16 07:04 09/23/16 07:04 09/23/16 07:04 Laboratory Results 09/23/16 05:10 09/23/16 05:10 09/22/16 09/23/16 09/24/16 05:59 05:59 05:59 Intake Total 2100 4218 819 Output Total 300 1200 Balance 1800 3018 819 PT 13.8 SEC (12.0-15.0) 09/22/16 05:01 INR 1.07 (0.83-1.16) 09/22/16 05:01 Physical Exam - Physical Exam General Appearance: alert, no apparent distress EENT: PERRL/EOMI Respiratory: lungs clear Cardiac/Chest: regular rate, rhythm Abdomen: normal bowel sounds, non-tender, soft, No organomegaly, No guarding, No rebound Skin: normal color Extremities: normal range of motion Neuro/Psych: no motor/sensory deficits ICD10 Worksheet Patient Problems: Problems Problem Status Diagnosed C. difficile diarrhea Acute 07/24/16 Chronic pain Acute Diverticulitis Acute Intractable vomiting Acute Perforation of sigmoid colon Acute Vomiting and diarrhea Acute Abdominal pain Acute Colitis Acute Elevated lipase Acute Free intraperitoneal air Acute Leukocytosis Acute Nausea and vomiting Acute Right distal ureteral calculus Acute Severe sepsis Acute Vomiting Acute
[2016-09-23] MEDS: ONDANSETRON 4 MG/2 ML VIAL IVP PRN (07:48)
[2016-09-23] MEDS ORDERED: PROMETHAZINE HCL 25 MG/ML VIAL IVP PRN (09:49)
[2016-09-23] MEDS: PANTOPRAZOLE SODIUM 40 MG in NS 100 ML IV SCH ×2 (10:37→20:39)
--- NOTE | 2016-09-23 12:42 | SOAPPROG ---
SOAP Progress Note Assessment/Plan: Assessment: Plan: Subjective: vss, af abd soft, minimally tender to deep paplpation only. access: improving diverticulitis or colon perf. plan: cont iv antibiotics 1-2 more days, then dc home on po's advance diet tomorrow. Objective: Vital Signs Temp Pulse Resp BP Pulse Ox 37.2 C 70 18 123/76 H 99 09/23/16 11:48 09/23/16 11:48 09/23/16 11:48 09/23/16 11:48 09/23/16 11:48 Laboratory Results 09/23/16 05:10 09/23/16 05:10 09/22/16 09/23/16 09/24/16 05:59 05:59 05:59 Intake Total 2100 4218 819 Output Total 300 1200 Balance 1800 3018 819 PT 13.8 SEC (12.0-15.0) 09/22/16 05:01 INR 1.07 (0.83-1.16) 09/22/16 05:01 ICD10 Worksheet Patient Problems: Problems Problem Status Diagnosed C. difficile diarrhea Acute 07/24/16 Chronic pain Acute Diverticulitis Acute Intractable vomiting Acute Perforation of sigmoid colon Acute Vomiting and diarrhea Acute Abdominal pain Acute Colitis Acute Elevated lipase Acute Free intraperitoneal air Acute Leukocytosis Acute Nausea and vomiting Acute Right distal ureteral calculus Acute Severe sepsis Acute Vomiting Acute
[2016-09-23] MEDS: LORazepam 2 MG/ML INJ IVP PRN ×3 (12:51→21:15)
--- NOTE | 2016-09-23 15:35 | HOSPPROG ---
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 Person- consulting - continue IV antibiotics - continue IV Dilaudid # acute leukocytosis- white blood cell count 10.9-> 7.0 this morning on antibiotics oxygen saturation 92% on room air - continue ertapenem # dyspepsia- start IV pantoprazole # prophylaxis holding Lovenox secondary to perforation and possible surgical requirements # diet NPO # despite all- > 2 MN as requiring acute monitoring IV narcotics and potential surgical intervention I have discussed the case with RN will increase to antiemetics and start reflux treatment Subjective: dyspepsia overnight Objective: Vital Signs Temp Pulse Resp BP Pulse Ox 36.9 C 88 18 133/86 H 97 09/23/16 14:00 09/23/16 14:00 09/23/16 14:00 09/23/16 14:00 09/23/16 14:00 Laboratory Results 09/23/16 05:10 09/23/16 05:10 09/22/16 09/23/16 09/24/16 05:59 05:59 05:59 Intake Total 2100 4218 819 Output Total 300 1200 500 Balance 1800 3018 319 PT 13.8 SEC (12.0-15.0) 09/22/16 05:01 INR 1.07 (0.83-1.16) 09/22/16 05:01 - Physical Exam Constitutional: appears nourished Eyes: anicteric sclera Ears, Nose, Mouth, Throat: moist mucous membranes Cardiovascular: regular rate and rhythym, no murmur, rub, or gallop Respiratory: no respiratory distress, no rales or rhonchi Gastrointestinal: normoactive bowel sounds, tenderness Genitourinary: no bladder fullness Skin: warm, normal color Musculoskeletal: No asymmetric calves Neurologic: AAOx3 Psychiatric: interacting appropriately, agitated Lymph, Heme, Immunologic: no cervical LAD ICD10 Worksheet Patient Problems: Problems Problem Status Diagnosed C. difficile diarrhea Acute 07/24/16 Chronic pain Acute Diverticulitis Acute Intractable vomiting Acute Perforation of sigmoid colon Acute Vomiting and diarrhea Acute Abdominal pain Acute Colitis Acute Elevated lipase Acute Free intraperitoneal air Acute Leukocytosis Acute Nausea and vomiting Acute Right distal ureteral calculus Acute Severe sepsis Acute Vomiting Acute
[2016-09-23] MEDS: HYDROmorphONE/DILAUDID 6 MG/30 ML PCA IV PRN (21:48)
[2016-09-24] MEDS: LORazepam 2 MG/ML INJ IVP PRN ×2 (03:26→16:19)
[2016-09-24 05:50] LABS: HEMATOCRIT 37.2 % (40.0-51.0); HEMOGLOBIN 13.3 g/dL (13.7-17.5); MEAN CELL HEMOGLOBIN 30.6 pg (27.9-34.1); MEAN CELL HEMOGLOBIN CONCENTR. 35.8 g/dL (32.4-36.7); MEAN CELL VOLUME 85.5 fL (81.5-99.8); RED BLOOD CELL COUNT 4.35 10^6/uL (4.40-6.38); RED CELL DISTRIBUTION WIDTH 12.2 % (11.5-15.2)
[2016-09-24 06:07] LABS: ANION GAP 12 mEq/L (8-16); CALCIUM 9.1 mg/dL (8.5-10.4); CARBON DIOXIDE 24 mEq/l (22-31); CHLORIDE 104 mEq/L (97-110); GLOMERULAR FILTRATION RATE > 60; GLUCOSE 87 mg/dL (70-100); POTASSIUM 4.1 mEq/L (3.5-5.2); SODIUM 140 mEq/L (134-144)
[2016-09-24] MEDS: PANTOPRAZOLE SODIUM 40 MG in NS 100 ML IV SCH (07:26)
[2016-09-24] MEDS: ERTAPENEM 1 GM in NS 100 ML IV SCH (08:38)
[2016-09-24] MEDS: HYDROmorphONE/DILAUDID 6 MG/30 ML PCA IV PRN (10:02)
[2016-09-24] MEDS ORDERED: oxyCODONE IR 5 MG TAB PO PRN (11:11)
--- NOTE | 2016-09-24 11:15 | SOAPPROG ---
SOAP Progress Note Assessment/Plan: Assessment: Plan: Subjective: vss,af having stools abd soft, non tender. will advance diet, hep lock iv, dc iv narcotics, restart home oxy ir. likely ome tomorrow on po antibiotics for several more days- can follow up with me in the office in a week. Objective: Vital Signs Temp Pulse Resp BP Pulse Ox 36.8 C 89 16 142/90 H 95 09/24/16 08:00 09/24/16 08:00 09/24/16 08:00 09/24/16 08:00 09/24/16 08:00 Laboratory Results 09/24/16 05:10 09/24/16 05:10 09/23/16 09/24/16 09/25/16 05:59 05:59 05:59 Intake Total 4218 2979 Output Total 1200 500 Balance 3018 2479 PT 13.8 SEC (12.0-15.0) 09/22/16 05:01 INR 1.07 (0.83-1.16) 09/22/16 05:01 ICD10 Worksheet Patient Problems: Problems Problem Status Diagnosed C. difficile diarrhea Acute 07/24/16 Chronic pain Acute Diverticulitis Acute Intractable vomiting Acute Perforation of sigmoid colon Acute Vomiting and diarrhea Acute Abdominal pain Acute Colitis Acute Elevated lipase Acute Free intraperitoneal air Acute Leukocytosis Acute Nausea and vomiting Acute Right distal ureteral calculus Acute Severe sepsis Acute Vomiting Acute
--- NOTE | 2016-09-24 12:36 | HOSPPROG ---
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 Less abdominal pain. No fevers. He is very relieved he did not have surgery. He has some anger directed at the health care system and will re-visit with pt certified caregiver. Objective: Vital Signs Temp Pulse Resp BP Pulse Ox 37.0 C 82 16 140/90 H 95 09/24/16 10:00 09/24/16 10:00 09/24/16 10:00 09/24/16 10:00 09/24/16 10:00 Laboratory Results 09/24/16 05:10 09/24/16 05:10 09/23/16 09/24/16 09/25/16 05:59 05:59 05:59 Intake Total 4218 2979 Output Total 1200 500 Balance 3018 2479 PT 13.8 SEC (12.0-15.0) 09/22/16 05:01 INR 1.07 (0.83-1.16) 09/22/16 05:01 - Physical Exam Constitutional: no apparent distress Eyes: PERRL Ears, Nose, Mouth, Throat: moist mucous membranes Cardiovascular: regular rate and rhythym, no murmur, rub, or gallop Respiratory: no respiratory distress, clear to auscultation Gastrointestinal: normoactive bowel sounds, other (mild LLQ TTP without r/r/g) Skin: warm Neurologic: AAOx3 Psychiatric: interacting appropriately ICD10 Worksheet Patient Problems: Problems Problem Status Diagnosed C. difficile diarrhea Acute 07/24/16 Chronic pain Acute Diverticulitis Acute Intractable vomiting Acute Perforation of sigmoid colon Acute Vomiting and diarrhea Acute Abdominal pain Acute Colitis Acute Elevated lipase Acute Free intraperitoneal air Acute Leukocytosis Acute Nausea and vomiting Acute Right distal ureteral calculus Acute Severe sepsis Acute Vomiting Acute
[2016-09-24] MEDS ORDERED: NORTRIPTYLINE HCL 10 MG CAP PO SCH (21:00)
[2016-09-24] MEDS: PANTOPRAZOLE SODIUM 40 MG TAB PO SCH (21:27)
[2016-09-25 08:58] VITALS: BP 132/94; PULSE 83; RESP 14; TEMP 98.9; O2SAT 95
[2016-09-25] MEDS: PANTOPRAZOLE SODIUM 40 MG TAB PO SCH (10:04)
[2016-09-25] MEDS: ERTAPENEM 1 GM in NS 100 ML IV SCH (10:04)
--- NOTE | 2016-09-25 10:14 | PDDCSUM ---
Discharge Summary Discharge Summary: Date of Admission: 09/21/2016 Date of Discharge: 09/25/2016 Discharge diagnoses: 1. Diverticulitis with microperforation s/p colonoscopy 2. Colon polyps 3. H/O Nephrolithiasis Consultants: 1. General surgery: Dr. Aleksandar Monaco, Dr. Pancho Trinidad 2. Gastroenterology: Dr. Anai Boyd Imaging studies: 1. CT abd/pelvis showed inflammation the sigmoid colon with inferolateral perforation and evidence of b/l nephrolithiasis History: For details, please see dictated H&P on 09/[address] Lizbeth Gonsales. In brief, Mr. Noland is a 41 yo male with a h/o one prior episode of diverticulitis who underwent a colonoscopy 3 days prior to admission, at which time colon polyps were removed. He had abdominal pain post-procedure and an abdominal plain film was negative at that time. He went home, but presented to the ED on 09/[address] imaging revealed diverticulitis with e/ o perforation. Surgery was consulted and the patient was admitted to the hospital for further management. Hospital course: Pt was admitted to medical/surgical unit. He was started on IV Invanz and surgical consult was obtained by Dr. Monaco, who recommended surgery. The patient declined surgery and requested a 2nd opinion. He was then evaluated by Dr. Pancho Bonilla and given his improving symptoms, surgery was deferred. He was able to advance his diet to a regular diet with no further pain, nausea or vomiting. He is discharged home with oral Levaquin and Flagyl to complete a 2 week course of antibiotic therapy. I discussed with the patient that though he improved from this episode without surgery, he may suffer from future episodes of diverticulitis and should return to the ED if symptoms worsen. Discharge medications: Continue home meds - Phenergan, Zofran, Nortriptyline, Oxycodone. New meds: Protonix 40 mg po BID, Levaquin 750 mg daily x10 days, Flagyl 500 mg TID x10 days. Follow up: 1. PCP, Dr. Turpin 2. General surgeon, Dr. Bonilla
== END 2016-09-25 11:54 | disposition home or self-care (01) | DRG 392 ==
LOC: F3E 22:59
PROVIDERS: ADMIT Hospitalist; ATTEND Hospitalist
DX: K57.20 Diverticulitis of large intestine with perforation and abscess without bleeding (principal); N20.0 Calculus of kidney; K21.9 Gastro-esophageal reflux disease without esophagitis; Z98.890 Other specified postprocedural states; Z86.010 Personal history of colon polyps
CPT/HCPCS: 96374; J1170; J1335; J2405; J2550; Q9967

== ENCOUNTER 2017-01-05 06:51 | Inpatient (IN) | payer MEDICAID ==
--- NOTE | 2017-01-05 06:56 | EDPHY ---
H & P Time Seen by Provider: 01/05/17 06:56 HPI/ROS: CHIEF COMPLAINT: Vomiting HISTORY OF PRESENT ILLNESS: Patient said he had a little bit of abdominal pain last week. His last hospitalization was in September of this year. Started having more left lower quadrant abdominal pain on Wednesday and then today multiple episodes of vomiting and worsening abdominal pain. Left lower quadrant and does not radiate. Associated with some gas but no diarrhea. Last bowel movement . Vomiting is severe but not with hematemesis or coffee- ground emesis. Not better with oral pain medication and Zofran at home. REVIEW OF SYSTEMS: Eye: no change in vision ENT: no sore throat Cardiac: no chest pain or syncope Pulmonary: no cough or SOB Abdomen: HPI Musculoskeletal: no back pain Skin: no rash Neuro: no headache Constitutional: no fever : no urinary symptoms A comprehensive 10 point review of systems is otherwise negative aside from elements mentioned in the history of present illness. PAST MEDICAL HISTORY: Discharge summary dated 07/1916 and 09/2016 personally reviewed. Includes history of diverticulitis with hospitalization for micro perforation in September of this year after colonoscopy, treated non operatively, Clostridium difficile, nephrolithiasis. It is noted that he had abdominal CT imaging on September 21 of this year. Also in 2016 noted [address] imaging studies in [facility]. Social history: No recent alcohol, former smoker General Appearance: Alert and conversant, cooperative. Eyes: No scleral icterus. ENT, Mouth: Dry mucous membranes Respiratory: Normal respiratory effort, breath sounds equal, lungs are clear to auscultation. Cardiovascular: Regular rate and rhythm. Gastrointestinal: Abdomen is soft and non tender. Neurological: Alert and oriented x3. Normally conversant. Face symmetric, normal movement and sensation in all extremities. Skin: Warm and dry, no rashes. Musculoskeletal: No peripheral edema and no joint swelling. Psychiatric: Moderately anxious. Emergency Department course/MDM: Fentanyl 100 mcg IV and Zofran 4 mg IV. The patient is not currently on antibiotics. He is not currently taking his nortriptyline as he has missed doses the last 3 days. Normal saline 2 L IV for vomiting. Labs to include CBC chemistry and liver function test. 745: Sleeping, easily awakened. Elevated white blood cell count reviewed which is higher than most previous values. CT scanning discussed and consented. 755: Creatinine normal, CO2 low consistent with dehydration. 859: Re-examined and feels better, still requiring IV pain medication. Discussed results with the patient. 2145: Total 2 mg IV Dilaudid, Invanz 1 g IV Smoking Status: Former smoker Constitutional: Initial Vital Signs Temperature (C) 36 C 01/05/17 06:53 Heart Rate 88 01/05/17 06:53 Respiratory Rate 20 01/05/17 06:53 Blood Pressure 122/95 H 01/05/17 06:53 O2 Sat (%) 98 01/05/17 06:53 O2 Delivery Mode Nasal Cannula O2 (L/minute) 3 Allergies/Adverse Reactions: bee stings, wasp stings Allergy (Intermediate, Uncoded 09/21/16 17:17) swelling Home Medications: Medication Instructions Recorded Nortriptyline HCl [Pamelor 10 mg 10 mg PO HS 09/11/16 (*)] Ondansetron Odt [Zofran Odt 4 mg 4 mg PO Q4 PRN 09/21/16 (*)] Medical Decision Making - Diagnostics Imaging Results: Imaging Impressions Abdomen CT 01/05/17 07:58 Impression: 1. Nonspecific infectious/inflammatory colitis involving the distal colon most prominent in the sigmoid colon with residual but improving inflammation in the left side of the pelvis adjacent to the sigmoid colon. 2. No CT evidence of appendicitis, abscess or bowel obstruction. 3. Nonobstructive bilateral nephrolithiasis. 4. Small hiatal hernia. 5. Atherosclerotic aorta without aneurysm. Findings and recommendations discussed with Emergency Department physician, Memo Martinez, at 0844 hours, January 05, 2017. Final report concurs with initial preliminary interpretation. Differential Diagnosis: Differential considered including but not limited to diverticulitis, gastroenteritis, bowel obstruction, intestinal perforation. Consult/Admit Bed Type: [place] [address] admit hospitalist, Mary Kay mccray [place] [address] - Data Points Laboratory Results: Laboratory Results 01/05/17 07:13 01/05/17 07:13 01/05/17 01/05/17 07:13 07:13 WBC 18.59 10^3/uL H 10^3/uL (3.80-9.50) RBC 5.41 10^6/uL 10^6/uL (4.40-6.38) Hgb 16.2 g/dL g/dL (13.7-17.5) Hct 44.7 % % (40.0-51.0) MCV 82.6 fL fL (81.5-99.8) MCH 29.9 pg pg (27.9-34.1) MCHC 36.2 g/dL g/dL (32.4-36.7) RDW 12.8 % % (11.5-15.2) Plt Count 276 10^3/uL 10^3/uL (150-400) MPV 9.7 fL fL (8.7-11.7) Neut % (Auto) 80.9 % H % (39.3-74.2) Lymph % (Auto) 11.2 % L % (15.0-45.0) [place] % (Auto) 6.7 % % (4.5-13.0) Eos % (Auto) 0.3 % L % (0.6-7.6) Baso % (Auto) 0.4 % % (0.3-1.7) Nucleat RBC Rel Count 0.0 % % (0.0-0.2) Absolute Neuts (auto) 15.06 10^3/uL H 10^3/uL (1.70-6.50) Absolute Lymphs (auto) 2.08 10^3/uL 10^3/uL (1.00-3.00) Absolute Monos (auto) 1.24 10^3/uL H 10^3/uL (0.30-0.80) Absolute Eos (auto) 0.05 10^3/uL 10^3/uL (0.03-0.40) Absolute Basos (auto) 0.07 10^3/uL 10^3/uL (0.02-0.10) Absolute Nucleated RBC 0.00 10^3/uL 10^3/uL (0-0.01) Immature Gran % 0.5 % % (0.0-1.1) Immature Gran # 0.09 10^3/uL 10^3/uL (0.00-0.10) Sodium 143 mEq/L mEq/L (134-144) Potassium 4.1 mEq/L mEq/L (3.5-5.2) Chloride 109 mEq/L mEq/L (97-110) Carbon Dioxide 18 mEq/l L mEq/l (22-31) Anion Gap 16 mEq/L mEq/L (8-16) BUN 17 mg/dL mg/dL (7-23) Creatinine 1.0 mg/dL mg/dL (0.7-1.3) Estimated GFR > 60 Glucose 178 mg/dL H mg/dL (70-100) Calcium 10.4 mg/dL mg/dL (8.5-10.4) Total Bilirubin 1.4 mg/dL mg/dL (0.1-1.4) Conjugated Bilirubin 0.5 mg/dL mg/dL (0.0-0.5) Unconjugated Bilirubin 0.9 mg/dL mg/dL (0.0-1.1) AST 28 IU/L IU/L (17-59) ALT 42 IU/L IU/L (21-72) Alkaline Phosphatase 105 IU/L IU/L (38-126) Total Protein 7.8 g/dL g/dL (6.3-8.2) Albumin 5.1 g/dL H g/dL (3.5-5.0) Lipase 332.0 IU/L H IU/L (23-300) Medications Given: Discontinued Medications Fentanyl (Sublimaze) 100 mcg IVP EDNOW ONE Stop: 01/05/17 07:11 Last Admin: 01/05/17 07:25 Dose: 100 mcg Hydromorphone HCl (Dilaudid) 1 mg IVP EDNOW ONE Stop: 01/05/17 08:28 Last Admin: 01/05/17 08:40 Dose: 1 mg Hydromorphone HCl (Dilaudid) 1 mg IVP EDNOW ONE Stop: 01/05/17 09:20 Last Admin: 01/05/17 09:32 Dose: 1 mg Sodium Chloride (Ns) 1,000 mls @ 0 mls/hr IV ONCE ONE PRN Reason: Wide Open Stop: 01/05/17 07:11 Last Admin: 01/05/17 07:25 Dose: 1,000 mls Sodium Chloride (Ns) 1,000 mls @ 0 mls/hr IV ONCE ONE PRN Reason: Wide Open Stop: 01/05/17 07:11 Last Admin: 01/05/17 07:40 Dose: 1,000 mls Ertapenem 1 gm/ Sodium (Chloride) 100 mls @ 200 mls/hr IV EDNOW ONE PRN Reason: Protocol Stop: 01/05/17 09:43 Last Admin: 01/05/17 09:32 Dose: 100 mls Lorazepam (Ativan Injection) 1 mg IVP EDNOW ONE Stop: 01/05/17 07:22 Last Admin: 01/05/17 07:26 Dose: 1 mg Ondansetron HCl (Zofran) 4 mg IVP EDNOW ONE Stop: 01/05/17 07:11 Last Admin: 01/05/17 07:26 Dose: 4 mg Departure - Departure Disposition: [facility] Inpatient Acute Clinical Impression: Dehydration, Colitis Nausea and vomiting Qualifiers: Vomiting type: unspecified Vomiting Intractability: non-intractable Qualified Code(s): R11.2 - Nausea with vomiting, unspecified Condition: Good
[2017-01-05] MEDS ORDERED: ONDANSETRON 4 MG/2 ML VIAL IVP ONE (07:10)
[2017-01-05] MEDS ORDERED: fentaNYL 100 MCG/2 ML INJ IVP ONE (07:10)
[2017-01-05] MEDS ORDERED: NS 1,000 ML IV ONE ×2 (07:10)
[2017-01-05] MEDS ORDERED: LORazepam 2 MG/ML INJ ONE ×2 (07:21→16:37)
[2017-01-05] MEDS ORDERED: LORazepam 2 MG/ML INJ IVP ONE (07:21)
[2017-01-05 07:27] LABS: % IMMATURE GRANULYOCYTES 0.5 % (0.0-1.1); ABSOLUTE IMMATURE GRANULOCYTES 0.09 10^3/uL (0.00-0.10); ADD DIFF? NO; ADD MORPH? NO; ADD SCAN? NO; ATYPICAL LYMPHOCYTE FLAG 10 (0-99); FRAGMENT RBC FLAG 0 (0-99); HEMATOCRIT 44.7 % (40.0-51.0); HEMOGLOBIN 16.2 g/dL (13.7-17.5); LEFT SHIFT FLG 20 (0-99); LIPEMIA HEMOLYSIS FLAG 90 (0-99); MEAN CELL HEMOGLOBIN 29.9 pg (27.9-34.1); MEAN CELL HEMOGLOBIN CONCENTR. 36.2 g/dL (32.4-36.7); MEAN CELL VOLUME 82.6 fL (81.5-99.8); MEAN PLATELET VOLUME 9.7 fL (8.7-11.7); PLATELET CLUMPS FLAG 0 (0-99); PLATELET COUNT 276 10^3/uL (150-400); RED BLOOD CELL COUNT 5.41 10^6/uL (4.40-6.38); RED CELL DISTRIBUTION WIDTH 12.8 % (11.5-15.2)
[2017-01-05 07:42] LABS: ALANINE AMINOTRANSFERASE 42 IU/L (21-72); ALBUMIN 5.1 g/dL (3.5-5.0); ALKALINE PHOSPHATASE 105 IU/L (38-126); ASPARTATE AMINOTRANSFERASE 28 IU/L (17-59); BILIRUBIN,TOTAL 1.4 mg/dL (0.1-1.4); BILIRUBIN-CONJUGATED 0.5 mg/dL (0.0-0.5); BILIRUBIN-UNCONJUGATED 0.9 mg/dL (0.0-1.1); CALCIUM 10.4 mg/dL (8.5-10.4); CARBON DIOXIDE 18 mEq/l (22-31); CHLORIDE 109 mEq/L (97-110); GLOMERULAR FILTRATION RATE > 60; GLUCOSE 178 mg/dL (70-100); SODIUM 143 mEq/L (134-144); TOTAL PROTEIN 7.8 g/dL (6.3-8.2)
[2017-01-05 08:01] LABS: ANION GAP 16 mEq/L (8-16); POTASSIUM 4.1 mEq/L (3.5-5.2)
[2017-01-05] MEDS ORDERED: IOPAMIDOL (ISOVUE-300) 100 ML BTL IV ONE (08:06)
[2017-01-05] MEDS ORDERED: HYDROmorphONE/DILAUDID 1 MG/ML SYR IVP ONE ×2 (08:27→09:19)
[2017-01-05] MEDS ORDERED: ERTAPENEM 1 GM in NS 100 ML IV ONE (09:14)
[2017-01-05] MEDS ORDERED: ACETAMINOPHEN 325 MG TAB PO PRN (10:28)
[2017-01-05] MEDS ORDERED: ONDANSETRON DISINTEGRATING 4 MG TAB PO PRN (10:28)
[2017-01-05] MEDS: ONDANSETRON 4 MG/2 ML VIAL IVP PRN ×3 (11:19→20:56)
[2017-01-05] MEDS: HYDROmorphONE/DILAUDID 1 MG/ML SYR IVP PRN ×5 (11:20→20:56)
--- NOTE | 2017-01-05 12:35 | GHP ---
[f rep st] HISTORY AND PHYSICAL DATE OF ADMISSION: 01/05/2017 CHIEF COMPLAINT: Abdominal pain. HISTORY OF PRESENT ILLNESS: The patient is a 41-year-old male, who states that he had a little bit of abdominal pain last week, however, his abdominal pain has become progressive, and has been compla ining of left lower quadrant abdominal pain, starting significantly on Wednesday. Today, he has had mu ltiple episodes of vomiting, with worsening abdominal pain, and presented to the emergency room for further evaluation. He has had no diarrhea, and his last bowel movement was on , 5 days ago. He denies any coffee-ground emesis or abnormal looking vomiting. He denies any fev er, sweats or night chills. He denies any dyspnea, shortness of breath, or chest pain. REVIEW OF SYSTEMS: A comprehensive 10-point review of systems is negative other than noted in the H PI. PAST MEDICAL HISTORY: 1. Diverticulitis. 2. Microperforation. 3. Clostridium difficile. 4. Nephrolithiasis. SOCIAL HISTORY: The patient denies any alcohol use. He states that he used to be a tobacco user, b ut does not any longer use tobacco. ALLERGIES: Are to bee stings. HOME MEDICATIONS: Nortriptyline 10 mg at bedtime, Zofran p.r.n. FAMILY HISTORY: His mother has had a complicated abdominal surgical history. No other pertinent fa len history at this point. SURGICAL HISTORY: Ureteral stent placement. PHYSICAL EXAM: GENERAL: The patient is alert. VITAL SIGNS: Afebrile at 36.9, pulse is 76, respir atory rate is 14, blood pressure is 119/74, he is saturating 96% on 2 L. HEENT: Normocephalic, atr aumatic. Mucosal membranes are moist. Pupils equal, round, reactive to light. NECK: Supple. UMANG GS: Clear to auscultation bilaterally. No rhonchi or wheezes appreciated. GASTROINTESTINAL/ABDOME N: Bowel sounds are hypoactive. Abdomen is soft, tender to palpation. CARDIOVASCULAR: Regular ra te and rhythm. No gallop or murmur noted. NEUROLOGIC: The patient is focally intact. SKIN: With out rashes or lesions. Warm and dry. EXTREMITIES: Within normal limits. There is no clubbing or cyanosis noted. LABORATORY EVALUATION: White count is 18.5. Glucose is 178, lipase is 332. Other laboratory evalu ations are essentially benign. RADIOLOGICAL STUDIES: CT of the abdomen: Notes nonspecific colitis in the distal colon, most promi nent in the sigmoid colon. ASSESSMENT: The patient is a 41-year-old male with history of complicated nephrolithiasis, as well as diverticulitis, and microperforation following a colonoscopy, and Clostridium difficile. Present s emergency room with complaints of abdominal pain. His CT scan shows definitive colitis. PLAN: 1. Colitis. I have contacted the patient's primary provider, Dr. Bonilla. He is in agreement an d will consult on the patient during this hospitalization. He has been initiated on IV Invanz, as w ell as supportive measures. We will continue a clear liquid diet at this time, with pain management , and continued supportive antiemetics. Further recommendations will be made as patient's course pr ogresses. 2. Leukocytosis. This is likely secondary to the patient's acute process. We will follow with lab oratory evaluation during this hospitalization. 3. History of nephrolithiasis. There is no indication for evaluation at this time. DISPOSITION: The patient is admitted to observation status. We will transition him to inpatient st atus if felt necessary, and the patient is not able to be discharged. I reviewed the patient's care with Dr. Armand Shannon. Further action will be taken as needed during this patient's hospitalization. Of note, the patient is requesting only be consulted on by Dr. Bonilla, not by anyone from [facility] or any other consultants. /[id number]/MODL
[2017-01-05] MEDS: LORazepam 2 MG/ML INJ IVP PRN ×2 (16:39→22:37)
[2017-01-05] MEDS: NORTRIPTYLINE HCL 10 MG CAP PO SCH (20:13)
[2017-01-05] MEDS: oxyCODONE IR 5 MG TAB PO PRN (20:56)
[2017-01-06] MEDS: oxyCODONE IR 5 MG TAB PO PRN ×5 (00:55→20:15)
[2017-01-06] MEDS: HYDROmorphONE/DILAUDID 1 MG/ML SYR IVP PRN ×8 (00:56→23:06)
[2017-01-06] MEDS: ONDANSETRON DISINTEGRATING 4 MG TAB PO PRN (07:34)
[2017-01-06] MEDS: ONDANSETRON 4 MG/2 ML VIAL IVP PRN ×4 (07:54→20:13)
[2017-01-06] MEDS: ERTAPENEM 1 GM in NS 100 ML IV SCH (09:25)
--- NOTE | 2017-01-06 09:51 | HOSPPROG ---
Hospitalist Progress Note Assessment/Plan: * sigmoid colitis * Presumed diverticular since he has had this before * However will check C diff * Continue Invanz, IV pain medicines * Apparently will have surgery once he is better * multiple episodes of colitis and chronic abdominal pain * Presumed diverticular although probably component of IBS, dysbiosis * previous history of C diff * Check * past cervical injury Subjective: Pain is little better. Objective: Vital Signs Temp Pulse Resp BP Pulse Ox 36.3 C 69 18 130/92 H 98 01/06/17 08:09 01/06/17 08:09 01/06/17 08:09 01/06/17 08:09 01/06/17 08:09 01/05/17 01/06/17 01/07/17 05:59 05:59 05:59 Intake Total 4000 Output Total 500 Balance 3500 Old records reviewed summarized - Physical Exam Constitutional: no apparent distress, appears nourished, not in pain Eyes: anicteric sclera, EOMI Ears, Nose, Mouth, Throat: moist mucous membranes, hearing normal Cardiovascular: regular rate and rhythym, no murmur, rub, or gallop Respiratory: no respiratory distress, no rales or rhonchi, clear to auscultation Gastrointestinal: normoactive bowel sounds, tenderness (Mild left lower quadrant tenderness) Skin: warm Neurologic: AAOx3 Psychiatric: interacting appropriately, not anxious, not encephalopathic, thought process linear ICD10 Worksheet Patient Problems: Problems Problem Status Onset Colitis Acute Dehydration Acute Nausea and vomiting Acute Abdominal pain Acute C. difficile diarrhea Acute 07/24/16 Chronic pain Acute Colitis Acute Diverticulitis Acute Elevated lipase Acute Free intraperitoneal air Acute Intractable vomiting Acute Leukocytosis Acute Perforation of sigmoid colon Acute Right distal ureteral calculus Acute Severe sepsis Acute Vomiting Acute Vomiting and diarrhea Acute
[2017-01-06 10:07] LABS: % IMMATURE GRANULYOCYTES 0.2 % (0.0-1.1); ABSOLUTE IMMATURE GRANULOCYTES 0.02 10^3/uL (0.00-0.10); ADD DIFF? NO; ADD MORPH? NO; ADD SCAN? NO; ATYPICAL LYMPHOCYTE FLAG 0 (0-99); FRAGMENT RBC FLAG 0 (0-99); HEMATOCRIT 40.8 % (40.0-51.0); HEMOGLOBIN 14.6 g/dL (13.7-17.5); LEFT SHIFT FLG 30 (0-99); LIPEMIA HEMOLYSIS FLAG 90 (0-99); MEAN CELL HEMOGLOBIN 30.1 pg (27.9-34.1); MEAN CELL HEMOGLOBIN CONCENTR. 35.8 g/dL (32.4-36.7); MEAN CELL VOLUME 84.1 fL (81.5-99.8); MEAN PLATELET VOLUME 9.7 fL (8.7-11.7); PLATELET CLUMPS FLAG 0 (0-99); PLATELET COUNT 188 10^3/uL (150-400); RED BLOOD CELL COUNT 4.85 10^6/uL (4.40-6.38); RED CELL DISTRIBUTION WIDTH 12.7 % (11.5-15.2)
[2017-01-06 10:34] LABS: ANION GAP 11 mEq/L (8-16); CALCIUM 9.2 mg/dL (8.5-10.4); CARBON DIOXIDE 24 mEq/l (22-31); CHLORIDE 103 mEq/L (97-110); CREATININE 0.9 mg/dL (0.7-1.3); GLOMERULAR FILTRATION RATE > 60; GLUCOSE 106 mg/dL (70-100); SODIUM 138 mEq/L (134-144)
[2017-01-06] MEDS: LORazepam 2 MG/ML INJ IVP PRN ×2 (11:26→20:14)
--- NOTE | 2017-01-06 12:40 | SOAPPROG ---
SOAP Progress Note Assessment/Plan: Assessment: Plan: Subjective: hd 2 vss, af wbc down to normal from yesterday. abd soft, some tenderss llq and supr pubic. pt passing flatus. he sates he is throwing up his fluids. possibly related to narcotics? access: clinically improving. doubt he will need surgery emergently on this admit. i have recomended he have an elective colectomy in the next month or two. he has had 3-4 attacks in the last 12 months. full consult dictated yesterday, although i do not see it in the med rec yet. Objective: Vital Signs Temp Pulse Resp BP Pulse Ox 36.3 C 74 18 144/99 H 94 01/06/17 08:09 01/06/17 11:11 01/06/17 11:11 01/06/17 11:11 01/06/17 11:11 Laboratory Results 01/06/17 09:55 01/06/17 09:55 01/05/17 01/06/17 01/07/17 05:59 05:59 05:59 Intake Total 4000 Output Total 500 300 Balance 3500 -300 ICD10 Worksheet Patient Problems: Problems Problem Status Onset Colitis Acute Dehydration Acute Nausea and vomiting Acute Abdominal pain Acute C. difficile diarrhea Acute 07/24/16 Chronic pain Acute Colitis Acute Diverticulitis Acute Elevated lipase Acute Free intraperitoneal air Acute Intractable vomiting Acute Leukocytosis Acute Perforation of sigmoid colon Acute Right distal ureteral calculus Acute Severe sepsis Acute Vomiting Acute Vomiting and diarrhea Acute
[2017-01-06] MEDS: NORTRIPTYLINE HCL 10 MG CAP PO SCH (20:30)
[2017-01-07] MEDS: oxyCODONE IR 5 MG TAB PO PRN ×4 (00:10→20:01)
[2017-01-07] MEDS: ONDANSETRON 4 MG/2 ML VIAL IVP PRN ×4 (00:11→18:10)
[2017-01-07] MEDS: LORazepam 2 MG/ML INJ IVP PRN ×3 (03:00→20:01)
[2017-01-07] MEDS: HYDROmorphONE/DILAUDID 1 MG/ML SYR IVP PRN ×5 (03:01→20:00)
[2017-01-07 05:43] LABS: % IMMATURE GRANULYOCYTES 0.2 % (0.0-1.1); ABSOLUTE IMMATURE GRANULOCYTES 0.02 10^3/uL (0.00-0.10); ADD DIFF? NO; ADD MORPH? NO; ADD SCAN? NO; ATYPICAL LYMPHOCYTE FLAG 0 (0-99); FRAGMENT RBC FLAG 0 (0-99); HEMATOCRIT 40.8 % (40.0-51.0); HEMOGLOBIN 14.7 g/dL (13.7-17.5); LEFT SHIFT FLG 10 (0-99); LIPEMIA HEMOLYSIS FLAG 90 (0-99); MEAN CELL HEMOGLOBIN 30.6 pg (27.9-34.1); MEAN PLATELET VOLUME 9.3 fL (8.7-11.7); PLATELET CLUMPS FLAG 0 (0-99); PLATELET COUNT 205 10^3/uL (150-400); RED CELL DISTRIBUTION WIDTH 12.7 % (11.5-15.2)
[2017-01-07 05:56] LABS: ANION GAP 11 mEq/L (8-16); CALCIUM 9.7 mg/dL (8.5-10.4); CARBON DIOXIDE 27 mEq/l (22-31); CHLORIDE 100 mEq/L (97-110); CREATININE 1.1 mg/dL (0.7-1.3); GLOMERULAR FILTRATION RATE > 60; GLUCOSE 105 mg/dL (70-100); POTASSIUM 4.3 mEq/L (3.5-5.2); SODIUM 138 mEq/L (134-144)
[2017-01-07] MEDS: ERTAPENEM 1 GM in NS 100 ML IV SCH (08:55)
--- NOTE | 2017-01-07 11:26 | HOSPPROG ---
Hospitalist Progress Note Assessment/Plan: * sigmoid colitis * Presumed diverticular since he has had this before * C diff pending but no diarrhea currently * Continue Invanz, IV pain medicines * Apparently will have surgery once he is better * multiple episodes of colitis and chronic abdominal pain * Presumed diverticular although probably component of IBS, dysbiosis * previous history of C diff * Check * past cervical injury * probable home tomorrow or maybe this afternoon if he is tolerating orals well Subjective: Abdomen is feeling better. Seems to be tolerating p.o. no bowel movements Objective: Vital Signs Temp Pulse Resp BP Pulse Ox 36.6 C 72 18 133/96 H 94 01/07/17 08:00 01/07/17 08:00 01/07/17 08:00 01/07/17 08:00 01/07/17 08:00 Laboratory Results 01/07/17 05:30 01/07/17 05:30 - Physical Exam Constitutional: no apparent distress, appears nourished, not in pain Eyes: anicteric sclera, EOMI Ears, Nose, Mouth, Throat: moist mucous membranes, hearing normal, ears appear normal Cardiovascular: regular rate and rhythym, no murmur, rub, or gallop Respiratory: no respiratory distress Gastrointestinal: normoactive bowel sounds, soft, non-tender abdomen ( minimal tenderness), no palpable masses Skin: warm Neurologic: AAOx3 Psychiatric: interacting appropriately, not anxious, not encephalopathic, thought process linear ICD10 Worksheet Patient Problems: Problems Problem Status Onset Colitis Acute Dehydration Acute Nausea and vomiting Acute Abdominal pain Acute C. difficile diarrhea Acute 07/24/16 Chronic pain Acute Colitis Acute Diverticulitis Acute Elevated lipase Acute Free intraperitoneal air Acute Intractable vomiting Acute Leukocytosis Acute Perforation of sigmoid colon Acute Right distal ureteral calculus Acute Severe sepsis Acute Vomiting Acute Vomiting and diarrhea Acute
[2017-01-07 20:10] VITALS: RESP 16
[2017-01-07] MEDS: NORTRIPTYLINE HCL 10 MG CAP PO SCH (22:39)
[2017-01-08] MEDS: HYDROmorphONE/DILAUDID 1 MG/ML SYR IVP PRN ×2 (00:05→02:48)
[2017-01-08] MEDS: ONDANSETRON 4 MG/2 ML VIAL IVP PRN (00:05)
[2017-01-08] MEDS: oxyCODONE IR 5 MG TAB PO PRN ×2 (02:47→07:03)
[2017-01-08] MEDS: LORazepam 2 MG/ML INJ IVP PRN (02:47)
[2017-01-08] MEDS: ONDANSETRON DISINTEGRATING 4 MG TAB PO PRN (07:03)
[2017-01-08] MEDS: ERTAPENEM 1 GM in NS 100 ML IV SCH (09:40)
[2017-01-08 10:27] VITALS: BP 128/78; PULSE 73; TEMP 97.3; O2SAT 95
--- NOTE | 2017-01-08 10:34 | GDS ---
[f rep st] DISCHARGE SUMMARY DISCHARGE DIAGNOSES: 1. Sigmoid diverticulitis. 2. Previous history of multiple episodes of diverticulitis with microperforations. 3. Previous history of Clostridium difficile colitis. 4. Previous history of nephrolithiasis. HISTORY: This is a 41-year-old male who presents with abdominal pain. HOSPITAL COURSE: The patient was admitted and given IV antibiotics. Over the last several days, he has improved. Surgical consult was obtained and they are considering a colectomy. He will be discharged home on 10 more days of antibiotics to complete a 14-day course, along with some oxycodone and Zofran. I also have given him samples of probiotics. ADDENDUM: Cdiff came back positive. I called patient and sent script for Vancomyocin /[id number]/MODL MTDD
== END 2017-01-08 10:31 | disposition home or self-care (01) | DRG 392 ==
LOC: UNDOADMOB 09:14 → F1N 10:05 → OBSVTOIN 01-06 14:51
PROVIDERS: ADMIT Student in an Organized Health Care Education/Training Program; ATTEND Internal Medicine
DX: K57.92 Diverticulitis of intestine, part unspecified, without perforation or abscess without bleeding (principal); K52.9 Noninfective gastroenteritis and colitis, unspecified; N20.0 Calculus of kidney; K44.9 Diaphragmatic hernia without obstruction or gangrene
CPT/HCPCS: 96365; G0378; J1170; J1335; J2060; J2405; J3010; Q9967

== ENCOUNTER 2017-02-04 07:59 | Inpatient (IN) | payer MEDICAID ==
--- NOTE | 2017-02-04 08:11 | EDPHY ---
HPI/HX/ROS/PE/MDM Narrative: CHIEF COMPLAINT: Abdominal pain. HPI: The patient is a 41-year-old male, with history of diverticulitis, microperforation, and complicated nephrolithiasis who complains of diffuse abdominal pain that started this morning. His pain is severe. He has associated nausea and vomiting. The patient states his symptoms feel similar to previous diverticulitis for which he was admitted 01/05/17. At that time he received IV Vancomycin and his symptoms improved. Patient returns with similar abdominal pain. He saw Dr. Bonilla last week and was told he needed surgery. REVIEW OF SYSTEMS: Aside from elements discussed in the HPI, a comprehensive 10-point review of systems was reviewed and is negative. PMH: Diverticulitis, Microperforation, Clostridium difficile, Nephrolithiasis, Colitis. PSH: Ureteral stent SOCIAL HISTORY: No alcohol. PHYSICAL EXAM: General: Patient is alert, uncomfortable appearing. ENT: Eyes are normal to inspection. ENT inspection normal. Neck: Normal inspection. Full range of motion. Respiratory: No respiratory distress. Breath sounds normal bilaterally. Cardiovascular: Regular rate and rhythm. Strong peripheral pulses. Abdomen: The abdomen is nontender to palpation. There are no peritoneal signs. There are normal bowel sounds. Back: Normal to inspection. No tenderness to palpation. Skin: Normal color. No rash. Warm and dry. Extremities: Normal appearance. Full range of motion. Neuro: Oriented x3. Normal motor function. Normal sensory function. ED Course: Patient with history of diverticulitis and microperforation who presents with diffuse abdominal pain. Patient appears uncomfortable. IV was established, patient received IV fluids, Zofran for nausea and 100mcg Fentanyl for pain. Plan to check CBC, BMP, Lipase, and liver function. Abdominal x-ray ordered. Patient has elevated WBC at 19.21. Lipase is elevated at 331. Abdominal x-ray appears normal. I ordered CT abdomen/pelvis. Patient continues to have abdominal pain, he received an additional 100mcg fentanyl and 1mg Dilaudid. CT abdomen/pelvis reveals persistent diverticulitis and stable bilateral nephrolithiasis. No perforation. 10:30 a.m.: I consulted Dr. Monaco, General surgery, he will assess the patient in the ED. 10:45 a.m.: Dr. Birmingham assessed the patient and would like the patient started on IV Levaquin. 11:00 a.m.: I spoke to the hospitalist team, the patient will be admitted to Dr. Veloz. Dr. Bonilla will consult. MDM: Patient presents with recurrent diverticulitis with recurrent abdominal pain. Dr. Monaco saw the patient and would like him started on IV Levaquin and admitted for further observation. I see no sign of bowel obstruction, sepsis, cholecystitis or appendicitis. - Data Points Imaging Results: Imaging Impressions Abdomen X-Ray 02/04/17 08:14 Impression: No obstruction or evidence for toxic megacolon. Abdomen CT 02/04/17 08:48 Impression: 1. Chronic persistent focal diverticulitis suspected mid sigmoid colon with focal persistently inflamed diverticulum on multiple prior CT studies 2. No CT evidence of appendicitis, abscess or bowel obstruction. 3. Stable bilateral nephrolithiasis without obstruction. Findings discussed with Ronn Soto MD at 10:12 hour, 02/04/2017. Imaging: Discussed imaging studies w/ filtration plant mechanic Radiologist, I viewed and interpreted images myself Laboratory Results: Laboratory Results 02/04/17 08:19 02/04/17 08:19 02/04/17 02/04/17 08:19 08:19 WBC 19.21 10^3/uL H 10^3/uL (3.80-9.50) RBC 5.36 10^6/uL 10^6/uL (4.40-6.38) Hgb 16.2 g/dL g/dL (13.7-17.5) Hct 45.3 % % (40.0-51.0) MCV 84.5 fL fL (81.5-99.8) MCH 30.2 pg pg (27.9-34.1) MCHC 35.8 g/dL g/dL (32.4-36.7) RDW 13.2 % % (11.5-15.2) Plt Count 262 10^3/uL 10^3/uL (150-400) MPV 9.6 fL fL (8.7-11.7) Neut % (Auto) 85.5 % H % (39.3-74.2) Lymph % (Auto) 8.5 % L % (15.0-45.0) Hawkins % (Auto) 4.9 % % (4.5-13.0) Eos % (Auto) 0.2 % L % (0.6-7.6) Baso % (Auto) 0.4 % % (0.3-1.7) Nucleat RBC Rel Count 0.0 % % (0.0-0.2) Absolute Neuts (auto) 16.41 10^3/uL H 10^3/uL (1.70-6.50) Absolute Lymphs (auto) 1.64 10^3/uL 10^3/uL (1.00-3.00) Absolute Monos (auto) 0.94 10^3/uL H 10^3/uL (0.30-0.80) Absolute Eos (auto) 0.04 10^3/uL 10^3/uL (0.03-0.40) Absolute Basos (auto) 0.08 10^3/uL 10^3/uL (0.02-0.10) Absolute Nucleated RBC 0.00 10^3/uL 10^3/uL (0-0.01) Immature Gran % 0.5 % % (0.0-1.1) Immature Gran # 0.10 10^3/uL 10^3/uL (0.00-0.10) Sodium 141 mEq/L mEq/L (134-144) Potassium 3.9 mEq/L mEq/L (3.5-5.2) Chloride 107 mEq/L mEq/L (97-110) Carbon Dioxide 19 mEq/l L mEq/l (22-31) Anion Gap 15 mEq/L mEq/L (8-16) BUN 19 mg/dL mg/dL (7-23) Creatinine 1.0 mg/dL mg/dL (0.7-1.3) Estimated GFR > 60 Glucose 164 mg/dL H mg/dL (70-100) Calcium 10.3 mg/dL mg/dL (8.5-10.4) Total Bilirubin 1.1 mg/dL mg/dL (0.1-1.4) Conjugated Bilirubin 0.3 mg/dL mg/dL (0.0-0.5) Unconjugated Bilirubin 0.8 mg/dL mg/dL (0.0-1.1) AST 40 IU/L IU/L (17-59) ALT 47 IU/L IU/L (21-72) Alkaline Phosphatase 94 IU/L IU/L (38-126) Total Protein 8.0 g/dL g/dL (6.3-8.2) Albumin 5.0 g/dL g/dL (3.5-5.0) Lipase 337.0 IU/L H IU/L (23-300) Medications Given: Discontinued Medications Fentanyl (Sublimaze) 100 mcg IVP EDNOW ONE Stop: 02/04/17 08:15 Last Admin: 02/04/17 08:26 Dose: 100 mcg Fentanyl (Sublimaze) 100 mcg IVP EDNOW ONE Stop: 02/04/17 08:43 Last Admin: 02/04/17 08:45 Dose: 100 mcg Hydromorphone HCl (Dilaudid) 1 mg IVP EDNOW ONE Stop: 02/04/17 08:48 Last Admin: 02/04/17 09:14 Dose: 1 mg Hydromorphone HCl (Dilaudid) 1 mg IVP EDNOW ONE Stop: 02/04/17 11:19 Last Admin: 02/04/17 11:58 Dose: 1 mg Sodium Chloride (Ns) 1,000 mls @ 0 mls/hr IV ONCE ONE PRN Reason: Wide Open Stop: 02/04/17 08:15 Last Admin: 02/04/17 08:27 Dose: 1,000 mls Levofloxacin/Dextrose (Levaquin 750 Mg (Premix)) 150 mls @ 100 mls/hr IV EDNOW ONE PRN Reason: Protocol Stop: 02/04/17 12:21 Last Admin: 02/04/17 11:58 Dose: 150 mls Ketorolac Tromethamine (Toradol) 30 mg IVP EDNOW ONE Stop: 02/04/17 09:36 Last Admin: 02/04/17 10:46 Dose: 30 mg Ondansetron HCl (Zofran) 4 mg IVP EDNOW ONE Stop: 02/04/17 08:22 Last Admin: 02/04/17 08:27 Dose: 4 mg Ondansetron HCl (Zofran) 4 mg IVP EDNOW ONE Stop: 02/04/17 11:19 Last Admin: 02/04/17 11:58 Dose: 4 mg General Time Seen by Provider: 02/04/17 08:10 Initial Vital Signs: Initial Vital Signs Temperature (C) 36.8 C 02/04/17 08:01 Heart Rate 89 02/04/17 08:01 Respiratory Rate 20 02/04/17 08:01 Blood Pressure 146/90 H 02/04/17 08:01 O2 Sat (%) 99 02/04/17 08:01 O2 Delivery Mode Room Air O2 (L/minute) 2 Allergies/Adverse Reactions: bee stings, wasp stings Allergy (Intermediate, Uncoded 02/04/17 08:23) swelling Home Medications: Medication Instructions Recorded Nortriptyline HCl [Pamelor 10 mg 10 mg PO HS 09/11/16 (*)] oxyCODONE IR [Oxycodone Ir (*)] 10 mg PO Q4 PRN #20 tab 01/08/17 Herbals/Supplements -Info Only 1 ea PO DAILY 02/04/17 Multivitamins [Multivitamin (*)] 1 each PO DAILY 02/04/17 Ondansetron Odt [Zofran Odt 4 mg 4 mg PO DAILY PRN 02/04/17 (*)] Departure - Departure Disposition: [facility] Inpatient Acute Clinical Impression: Diverticulitis Qualifiers: Diverticulitis site: large intestine Diverticulitis bleeding: without bleeding Diverticulitis complication: without perforation or abscess Qualified Code(s): K57.32 - Diverticulitis of large intestine without perforation or abscess without bleeding Condition: Fair Report Scribed for: Ronn Soto Report Scribed by: Herminia Fry Date of Report: 02/04/17 Time of Report: 08:22 Physician Review and Approval Statement: Portions of this note were transcribed by a certified medical technician. I personally performed the history, physical exam, and medical decision-making; and confirmed the accuracy of the information in the transcribed note.
[2017-02-04] MEDS ORDERED: fentaNYL 100 MCG/2 ML INJ IVP ONE ×2 (08:14→08:42)
[2017-02-04] MEDS ORDERED: NS 1,000 ML IV ONE (08:14)
[2017-02-04] MEDS ORDERED: ONDANSETRON 4 MG/2 ML VIAL IVP ONE ×2 (08:21→11:18)
[2017-02-04 08:26] LABS: % IMMATURE GRANULYOCYTES 0.5 % (0.0-1.1); ADD DIFF? NO; ADD MORPH? NO; ADD SCAN? NO; ATYPICAL LYMPHOCYTE FLAG 0 (0-99); FRAGMENT RBC FLAG 0 (0-99); HEMATOCRIT 45.3 % (40.0-51.0); HEMOGLOBIN 16.2 g/dL (13.7-17.5); LEFT SHIFT FLG 10 (0-99); LIPEMIA HEMOLYSIS FLAG 90 (0-99); MEAN CELL HEMOGLOBIN 30.2 pg (27.9-34.1); MEAN CELL HEMOGLOBIN CONCENTR. 35.8 g/dL (32.4-36.7); MEAN CELL VOLUME 84.5 fL (81.5-99.8); MEAN PLATELET VOLUME 9.6 fL (8.7-11.7); PLATELET CLUMPS FLAG 0 (0-99); PLATELET COUNT 262 10^3/uL (150-400); RED BLOOD CELL COUNT 5.36 10^6/uL (4.40-6.38); RED CELL DISTRIBUTION WIDTH 13.2 % (11.5-15.2)
[2017-02-04 08:47] LABS: ALANINE AMINOTRANSFERASE 47 IU/L (21-72); ALKALINE PHOSPHATASE 94 IU/L (38-126); ANION GAP 15 mEq/L (8-16); ASPARTATE AMINOTRANSFERASE 40 IU/L (17-59); BILIRUBIN,TOTAL 1.1 mg/dL (0.1-1.4); BILIRUBIN-CONJUGATED 0.3 mg/dL (0.0-0.5); BILIRUBIN-UNCONJUGATED 0.8 mg/dL (0.0-1.1); CALCIUM 10.3 mg/dL (8.5-10.4); CARBON DIOXIDE 19 mEq/l (22-31); CHLORIDE 107 mEq/L (97-110); GLOMERULAR FILTRATION RATE > 60; GLUCOSE 164 mg/dL (70-100); POTASSIUM 3.9 mEq/L (3.5-5.2); SODIUM 141 mEq/L (134-144)
[2017-02-04] MEDS ORDERED: HYDROmorphONE/DILAUDID 1 MG/ML SYR IVP ONE ×2 (08:47→11:18)
[2017-02-04] MEDS ORDERED: IOPAMIDOL (ISOVUE-300) 100 ML BTL ONE (09:07)
[2017-02-04] MEDS ORDERED: KETOROLAC 30 MG/1 ML SDV IVP ONE (09:35)
--- NOTE | 2017-02-04 13:14 | GCON ---
[f rep st] CONSULTATION DATE OF CONSULTATION: 02/04/2017 CHIEF COMPLAINT: Abdominal pain. HISTORY OF PRESENT ILLNESS: This is a 41-year-old male, known to me with known diverticulitis and u nderlying C diff colitis. At any rate, the patient was last evaluated at the beginning of January with recurrent abdominal pain. At that point in time he was admitted to the medical service and treated with IV, transitioned to oral, antibiotics for, at that time, which was thought to be an exacerbatio n of his on going longstanding C diff colitis. At any rate, the patient was discharged home on oral vancomycin. He stated that for the most part he feels well. He does note that he has some sort of low lying, low level degree of inflammation in his abdomen pretty much at all times but that the ex acerbations were at a minimum. He saw his primary surgeon, Dr. Bonilla, in the clinic last Wednesday . They discussed treatment and Dr. Bonilla, at that point in time, recommended having his sigmoid colon removed as it appears he has chronic issues with it and more than likely he will no longer be of benefit to have long-standing medical treatment. At any rate, he finished his oral antibiotics last night. He went camping and did not have access to his medications. He awoke this morning with fairly significant left lower quadrant pain which has prompted his visit here. He describes the pa in as a sharp burning sensation without radiation in the left lower quadrant, 8/10 in intensity. In addition, he does have some nausea. He endorses chills as well but has not had any subjective or o bjective fevers. He continues to have bowel function, pass gas. He has a decent appetite and other than the pain he states that he feels well. PAST MEDICAL HISTORY: Long-standing C diff colitis and long-standing diverticulitis, nephrolithiasi s. PAST SURGICAL HISTORY: He had a ureteral stent placed for chronic nephrolithiasis. ALLERGIES: To bee stings. SOCIAL HISTORY: Lives with his mom. Denies alcohol use. Denies illicit drug use. Currently unemp loyed. FAMILY HISTORY: Noncontributory. CURRENT MEDICATIONS: Zofran as needed for pain, finished his recent medication of oral vancomycin. He also takes oxycodone as needed for abdominal pain. REVIEW OF SYSTEMS: A full 10-point review was performed and unless explicitly stated above, is othe rwise negative. PHYSICAL EXAM: GENERAL: The patient is alert in no acute distress. EYES: Extraocular movements a re intact. Pupils are equal, round, and reactive to light and accommodation. EAR, NOSE, THROAT: M ucous membranes are moist. Dentition is adequate. NECK: Normal inspection. Full range of motion. RESPIRATORY: No respiratory distress. Breath sounds equal bilaterally. CV: He is normotensive. He has no appreciable murmurs. ABDOMEN: Soft, nondistended. Minimally tender to palpation in th e left lower quadrant without rebound tenderness or guarding. BACK: Normal to inspection with no C VA tenderness. SKIN: Normal color without any rashes. EXTREMITIES: Normal in appearance with ful l range of motion. NEUROLOGIC: He is oriented x3 with what appears to be intact sensory and motor sensations. LABORATORY DATA: Elevated white blood cell count 21293 with left shift. Chemistry showed an elevat ed glucose to 164 and a lipase of 300. CT scan shows an abdominal CT, the images of which were personally reviewed by me, shows chronic per sistent focal diverticulitis in the mid sigmoid. No irwin perforation, free air or free fluid ident ified on the CT scan. ASSESSMENT AND PLAN: A 41-year-old male with long-standing chronic Clostridium difficile colitis an d diverticulitis. I had an extensive conversation with the patient in the emergency department juan carlos prado. Although he is less toxic appearing then my evaluation back in September, I do feel that this is a chronic problem and will more than likely not get better without surgical intervention. I discusse d the case with his primary surgeon, Dr. Bonilla, who is in town and will be evaluating the patien t, but at any rate, given the fact that the patient is currently nontoxic and his examination and CT scan is reassuring I feel that we should start with IV antibiotics to at least cool down the inflam mation. I appreciate the medicine admit, as I do feel we need to figure out whether or not he does have active Clostridium difficile colitis and make every effort to try to eradicate [facility] I discussed with Dr. Bonilla whether or not it would be a good option to keep him here in house until he has surgery versus sending him home on outpatient as he feels he appears to fail outp atient management essentially every time he has it. Will continue to follow and if he should decomp ensate, will make plans for surgery on an expedited basis but do feel that IV antibiotics are warran desire at this point in time. /[id number]/MODL
[2017-02-04] MEDS ORDERED: ACETAMINOPHEN 325 MG TAB PO PRN (14:56)
[2017-02-04] MEDS ORDERED: PROMETHAZINE HCL 25 MG/ML INJ IVP PRN (14:56)
--- NOTE | 2017-02-04 15:09 | GHP ---
[f rep st] HISTORY AND PHYSICAL DATE OF ADMISSION: 02/04/2017 CHIEF COMPLAINT: Abdominal pain and bloating. HISTORY OF PRESENT ILLNESS: This is a 41-year-old male with a history of recurrent diverticulitis, last admitted to [facility] on 01/05/2017, and ultimately discharged on 01/08/2017. D uring his last hospital stay, he was discharge on a course of Augmentin. Shortly after discharge, kenyon fox was determined to have C diff, at which time a prescription for vancomycin was called in for him. He tells me that he finished the vancomycin, which he took 4 times daily, about 2 weeks ago. Since finishing his last treatment of Augmentin and vancomycin, he never really feels like he improv ed. He has continued to have abdominal bloating and left lower quadrant abdominal pain. The pain h as worsened over the past 24 hours, and he has no vomiting. Denies any fevers or chills. He has casarez d a few episodes of non-bloody diarrhea. PAST MEDICAL HISTORY: 1. Diverticulitis with microperforation. 2. Clostridium difficile colitis. 3. Kidney stones. HOME MEDICATIONS: Reviewed. Refer to [employer] for details. ALLERGIES: Bees. SOCIAL HISTORY: He denies any alcohol use. He is a former smoker. He does use marijuana frequentl y. FAMILY HISTORY: Reviewed and noncontributory. REVIEW OF SYSTEMS: A comprehensive 10-point review of systems was done and is negative, except for as mentioned in the HPI. PHYSICAL EXAM: VITAL SIGNS: Blood pressure 123/74, pulse of 83, respiratory rate 18, O2 saturation 97% on 2 L, temperature afebrile. GENERAL: No acute distress. HEAD: Normocephalic, atraumatic. Eyes are PERRLA. Sclerae anicteric. MOUTH: Moist mucous membranes. NECK: Supple. No lymphaden opathy. CARDIOVASCULAR: S1, S2. No JVD. No lower extremity edema. PULMONARY: Lungs are clear. No wheezes, rales, or rhonchi. ABDOMEN: Distended. There are positive bowel sounds. There is so me tenderness to deep palpation in the left lower quadrant, without guarding or rebound tenderness. EXTREMITIES: No clubbing or cyanosis. NEURO: Cranial nerves 2-12 grossly intact. No focal motor or sensory deficits. SKIN: Clear. No rashes. DIAGNOSTICS: CT of the abdomen and pelvis done today was reviewed, showing chronic, persistent foca l diverticulitis in the mid sigmoid colon, with focal, persistently inflamed diverticulum on multipl e prior CTs. WBC is 19.21, hemoglobin 16.2, hematocrit 45.3, platelets 262. Sodium 141, potassium 3.9, chloride 107, BUN 19, creatinine 1, glucose 164, lipase 337. C diff PCR was positive on 2016. ASSESSMENT/PLAN: This is a 41-year-old male with history of recurrent diverticulitis, as well as Cl ostridium difficile colitis, presenting with: 1. Abdominal pain and bloating in the setting of persistent diverticulitis seen on CT scan. The pa monalisa will be admitted to the hospital, where I will continue IV Levaquin, as well as Flagyl. His s urgeon, Dr. Haywood, is aware of the patient's admission and will consult later on today. 2. History of Clostridium difficile colitis. At this time, it is hard to determine if his symptoms are from diverticulitis or C diff colitis. I will send a C diff toxin PCR, but I assume it will be positive given his recent positive test. Will start high-dose oral vancomycin since I do think he should be treated with antibiotics in the setti ng of his diverticulitis. The patient will be admitted to the hospital on an inpatient status. /[id number]/MODL
[2017-02-04] MEDS ORDERED: HYDROmorphONE/DILAUDID 1 MG/ML SYR ONE (15:40)
[2017-02-04] MEDS ORDERED: ONDANSETRON 4 MG/2 ML VIAL ONE (15:40)
[2017-02-04] MEDS: HYDROmorphONE/DILAUDID 2 MG/ML INJ IVP PRN ×3 (15:46→20:57)
[2017-02-04] MEDS: ONDANSETRON DISINTEGRATING 4 MG TAB PO PRN (15:46)
[2017-02-04] MEDS: VANCOMYCIN 125 MG/2.5 ML UDL PO SCH ×2 (16:14→20:43)
--- NOTE | 2017-02-04 18:32 | SOAPPROG ---
SOAP Progress Note Assessment/Plan: Assessment: Plan: Subjective: pt with recurent sigmod diverticulits abd soft, some tenderness llq wbc 19 ct reviewed. discussed with pt need to do sigmod colectomy. could be done this admit or electively as outpt after improving. Objective: Vital Signs Temp Pulse Resp BP Pulse Ox 37.1 C 82 20 150/88 H 95 02/04/17 16:00 02/04/17 16:00 02/04/17 16:00 02/04/17 16:00 02/04/17 16:00 02/03/17 02/04/17 02/05/17 05:59 05:59 05:59 Intake Total 1000 Balance 1000 ICD10 Worksheet Patient Problems: Problems Problem Status Onset Diverticulitis Acute Abdominal pain Acute C. difficile diarrhea Acute 07/24/16 C. difficile diarrhea Acute ~01/08/17 Chronic pain Acute Colitis Acute Colitis Acute Dehydration Acute Diverticulitis Acute Elevated lipase Acute Free intraperitoneal air Acute Intractable vomiting Acute Leukocytosis Acute Nausea and vomiting Acute Perforation of sigmoid colon Acute Right distal ureteral calculus Acute Severe sepsis Acute Vomiting Acute Vomiting and diarrhea Acute
[2017-02-04] MEDS ORDERED: ONDANSETRON 4 MG/2 ML VIAL IVP PRN (20:28)
[2017-02-04] MEDS: NORTRIPTYLINE HCL 10 MG CAP PO SCH (20:43)
[2017-02-04] MEDS: oxyCODONE IR 5 MG TAB PO PRN (22:29)
[2017-02-05] MEDS: HYDROmorphONE/DILAUDID 1 MG/ML SYR IVP PRN ×4 (00:10→13:53)
[2017-02-05] MEDS: oxyCODONE IR 5 MG TAB PO PRN ×3 (04:41→20:42)
[2017-02-05 05:18] LABS: % IMMATURE GRANULYOCYTES 0.4 % (0.0-1.1); ABSOLUTE IMMATURE GRANULOCYTES 0.04 10^3/uL (0.00-0.10); ADD DIFF? NO; ADD MORPH? NO; ADD SCAN? NO; ATYPICAL LYMPHOCYTE FLAG 10 (0-99); FRAGMENT RBC FLAG 0 (0-99); HEMATOCRIT 38.8 % (40.0-51.0); HEMOGLOBIN 13.4 g/dL (13.7-17.5); LEFT SHIFT FLG 0 (0-99); LIPEMIA HEMOLYSIS FLAG 90 (0-99); MEAN CELL HEMOGLOBIN 30.1 pg (27.9-34.1); MEAN CELL HEMOGLOBIN CONCENTR. 34.5 g/dL (32.4-36.7); MEAN CELL VOLUME 87.2 fL (81.5-99.8); MEAN PLATELET VOLUME 9.8 fL (8.7-11.7); PLATELET CLUMPS FLAG 0 (0-99); PLATELET COUNT 173 10^3/uL (150-400); RED BLOOD CELL COUNT 4.45 10^6/uL (4.40-6.38); RED CELL DISTRIBUTION WIDTH 13.3 % (11.5-15.2)
[2017-02-05] MEDS: VANCOMYCIN 125 MG/2.5 ML UDL PO SCH (06:04)
[2017-02-05] MEDS: MULTIVITAMINS 1 EACH TAB PO SCH (08:59)
[2017-02-05] MEDS ORDERED: Herbals/Supplements -Info Only PO SCH (09:00)
--- NOTE | 2017-02-05 09:49 | HOSPPROG ---
Hospitalist Progress Note Assessment/Plan: #recurrent diverticulitis (improving) but still requiring IV Dilaudid #h/o Cdiff without current diarrhea Plan: -I discussed the case with Dr. Bonilla who will see Narendra if he is still here tomorrow. Narendra is not interested in undergoing surgery this admission, but understands the need for intervention in the near future. -Continue IV levaquin/flagyl -DC PO Vanco (diarrhea resolved). Will plan on transitioning to po levaquin/ flagyl in order to treat c diff in the outpatient setting -advance diet Dispo: possible dc am 6/ if not requiring iv dilaudid Subjective: no diarrhea. wants to eat. improving llq abd pain. no fevers or chills Objective: Vital Signs Temp Pulse Resp BP Pulse Ox 36.8 C 62 14 116/70 97 02/05/17 08:34 02/05/17 08:34 02/05/17 08:34 02/05/17 08:34 02/05/17 08:34 Laboratory Results 02/05/17 04:28 02/04/17 02/05/17 02/06/17 05:59 05:59 05:59 Intake Total 1300 Balance 1300 - Physical Exam Constitutional: no apparent distress, appears nourished, not in pain Gastrointestinal: normoactive bowel sounds, soft, non-tender abdomen, no palpable masses, tenderness (llq ), No guarding, No rebound ICD10 Worksheet Patient Problems: Problems Problem Status Onset Diverticulitis Acute C. difficile diarrhea Acute ~01/08/17 Nausea and vomiting Acute Abdominal pain Acute Vomiting Acute Free intraperitoneal air Acute Diverticulitis Acute Severe sepsis Acute Right distal ureteral calculus Acute Vomiting and diarrhea Acute Chronic pain Acute Intractable vomiting Acute C. difficile diarrhea Acute 07/24/16 Leukocytosis Acute Elevated lipase Acute Colitis Acute Perforation of sigmoid colon Acute Dehydration Acute Colitis Acute
[2017-02-05] MEDS ORDERED: VANCOMYCIN 125 MG/2.5 ML UDL PO SCH (12:00)
[2017-02-05] MEDS: ONDANSETRON DISINTEGRATING 4 MG TAB PO PRN (15:30)
[2017-02-05 15:47] VITALS: O2SAT 94
[2017-02-05] MEDS: NORTRIPTYLINE HCL 10 MG CAP PO SCH (20:42)
[2017-02-05 23:22] VITALS: RESP 14
[2017-02-06] MEDS: oxyCODONE IR 5 MG TAB PO PRN ×3 (00:52→10:31)
[2017-02-06 04:48] LABS: % IMMATURE GRANULYOCYTES 0.4 % (0.0-1.1); ABSOLUTE IMMATURE GRANULOCYTES 0.03 10^3/uL (0.00-0.10); ADD DIFF? NO; ADD MORPH? NO; ADD SCAN? NO; ATYPICAL LYMPHOCYTE FLAG 20 (0-99); FRAGMENT RBC FLAG 0 (0-99); HEMATOCRIT 40.5 % (40.0-51.0); HEMOGLOBIN 14.3 g/dL (13.7-17.5); LEFT SHIFT FLG 0 (0-99); LIPEMIA HEMOLYSIS FLAG 90 (0-99); MEAN CELL HEMOGLOBIN 30.5 pg (27.9-34.1); MEAN CELL HEMOGLOBIN CONCENTR. 35.3 g/dL (32.4-36.7); MEAN CELL VOLUME 86.4 fL (81.5-99.8); MEAN PLATELET VOLUME 9.7 fL (8.7-11.7); PLATELET CLUMPS FLAG 10 (0-99); PLATELET COUNT 180 10^3/uL (150-400); RED BLOOD CELL COUNT 4.69 10^6/uL (4.40-6.38); RED CELL DISTRIBUTION WIDTH 13.2 % (11.5-15.2)
[2017-02-06 07:26] VITALS: BP 125/78; PULSE 70; TEMP 98.6
[2017-02-06] MEDS: MULTIVITAMINS 1 EACH TAB PO SCH (07:47)
[2017-02-06 09:29] LABS: CLOSTRIDIUM DIFFICILE DNA POSITIVE (NEGATIVE)
--- NOTE | 2017-02-06 16:20 | GDS ---
[f rep st] DISCHARGE SUMMARY DISCHARGE DIAGNOSES: 1. Recurrent sigmoid diverticulitis. 2. History of Clostridium difficile. CONSULTANTS: 1. Pancho Bonilla M.D. 2. Aleksandar Monaco M.D. HOSPITAL COURSE BY PROBLEM: Recurrent sigmoid diverticulitis: [facility] left lower quadrant abdominal pain. A CT of the abdomen and pelvis was done that showed draw end hand tanya persistent focal diverticulitis, suspect in the mid sigmoid colon with focal persistently inflam ed diverticulum on multiple prior CTs. Seen by General Surgery and offered operative intervention w [facility] the patient wanted to defer at this time. He was started on IV Levaquin and Flagyl. On hospit al day #2 his pain is manageable, off of IV pain medicines and he is tolerating a regular diet. As mentioned above, he was recently diagnosed with C diff and completed a course of vancomycin. It is unclear if he has an active C diff infection or not. A stool for C diff was sent during this hospit al stay which was positive which I am not surprised about since he was diagnosed with C difficile glenis mobley this month. At any rate, we will discharge Mr. Noland on a ten-day course of Flagyl 500 mg p. o. three times daily as well as Levaquin 750 mg daily to complete 14 days of treatment. PHYSICAL EXAM: VITAL SIGNS: On day of discharge: Blood pressure 125/78, pulse is 70, respiratory rate 14, O2 saturation 94% on room air. Temperature afebrile. ABDOMEN: Soft, nontender, nondisten ded. No guarding or rebound tenderness. There is some tenderness to deep palpation in the left low er quadrant, but it is not very impressive. DIAGNOSTICS DONE THIS HOSPITAL STAY: CT abdomen and pelvis done 02/04/2017: Refer to report. DISCHARGE MEDICATIONS: Please refer to discharge medication reconciliation in [facility] for full det ails. Below is a preliminary list: 1. Flagyl 500 mg p.o. three times daily for 10 days. 2. Levaquin of 750 mg p.o. daily for 10 days. DISCHARGE INSTRUCTIONS: The patient will be discharged from the hospital where he was urged to foll ow up with Dr. Pancho Bonilla later next week. He should seek medical attention if his pain worsens or if he develops worsening of his symptoms. /[id number]/MODL
[2017-02-07 07:44] LABS: PRINT OR CALL CRITICALS TECH CALL
== END 2017-02-06 11:24 | disposition home or self-care (01) | DRG 392 ==
LOC: OBSVTOIN 14:54 → F3N 15:59
PROVIDERS: ADMIT Family Medicine; ATTEND Family Medicine
DX: K57.32 Diverticulitis of large intestine without perforation or abscess without bleeding (principal); K57.30 Diverticulosis of large intestine without perforation or abscess without bleeding; N20.0 Calculus of kidney; A04.7 Enterocolitis due to Clostridium difficile
CPT/HCPCS: 96365; 96366; J1170; J1885; J1956; J2405; J3010; Q9967

== ENCOUNTER 2017-03-01 08:47 | Observation (INO) | payer MEDICAID ==
[~2017-03-01 08:47] MED LIST: HYDROmorphONE/DILAUDID 1 MG/ML SYR IVP ONE
[2017-03-01] MEDS ORDERED: HYDROmorphONE/DILAUDID 1 MG/ML SYR IVP ONE (09:04)
[2017-03-01] MEDS ORDERED: NS 1,000 ML IV ONE ×2 (09:04)
[2017-03-01] MEDS ORDERED: ONDANSETRON 4 MG/2 ML VIAL IVP ONE ×2 (09:04)
[2017-03-01] MEDS ORDERED: LORazepam 2 MG/ML INJ IVP ONE ×2 (09:04→09:05)
--- NOTE | 2017-03-01 09:07 | EDPHY ---
H & P Stated Complaint: Abdominal pain and nausea since 7am Time Seen by Provider: 03/01/17 08:54 - Personal History Tetanus Vaccine Date: 2006 - Medical/Surgical History Hx Asthma: No Hx Chronic Respiratory Disease: No Hx Diabetes: No Hx Cardiac Disease: No Hx Renal Disease: No Hx Cirrhosis: No Hx Alcoholism: No Hx HIV/AIDS: No Hx Splenectomy or Spleen Trauma: No Other PMH: PMH: Renal stones and ureterolithiasis requiring stent, IBS, diverticulitis with microperforation, Clostridium difficile. PSH:HEMORRHOIDS, R ureter stent 12/20 - Social History Smoking Status: Former smoker Constitutional: Initial Vital Signs Temperature (C) 36.6 C 03/01/17 08:47 Heart Rate 71 03/01/17 08:47 Respiratory Rate 20 03/01/17 08:47 Blood Pressure 157/96 H 03/01/17 08:47 O2 Sat (%) 98 03/01/17 08:47 O2 Delivery Mode Nasal Cannula O2 (L/minute) 2 Allergies/Adverse Reactions: bee stings, wasp stings Allergy (Intermediate, Uncoded 02/04/17 08:23) swelling Home Medications: Medication Instructions Recorded Nortriptyline HCl [Pamelor 10 mg 10 mg PO HS 09/11/16 (*)] Herbals/Supplements -Info Only 1 ea PO DAILY 02/04/17 Multivitamins [Multivitamin (*)] 1 each PO DAILY 02/04/17 Ondansetron Odt [Zofran Odt 4 mg 4 mg PO DAILY PRN 02/04/17 (*)] HYOSCYAMINE SULFATE [LEVSIN] 0.125 mg PO TID PRN #10 tab 02/06/17 oxyCODONE IR [Oxycodone Ir (*)] 10 mg PO Q4 PRN #20 tab 02/06/17 Medical Decision Making - Diagnostics Imaging Results: Imaging Impressions Abdomen CT 03/01/17 09:05 Impression: 1. Inflammation associated with sigmoid diverticula, with possible extraluminal air, suspicious for microperforation or fistula. 2. Nonobstructing nephrolithiasis. 3. Additional findings as above. Findings discussed with Dinesh Duran M.D. on 03/01/2017 at 10:15 a.m. Imaging: Discussed imaging studies w/ composite assembler Radiologist, I viewed and interpreted images myself ED Course/Re-evaluation: CHIEF COMPLAINT: "I have diverticulitis; I need to get to surgery" HISTORY OF PRESENT ILLNESS: The patient is a 41 y/o male complaining of worsening left lower abdominal pain over the last few days. He has a history of recurrent sigmoid diverticulitis and was most recently admitted on 02/04/17 for similar symptoms during which time a CT confirmed diverticulitis. He was evaluated by Dr. Bonilla at that time and told to follow up with him this month or return to the ED for worsening symptoms. He was discharged on Levaquin and Flagyl, which he finished 5 days ago. Symptoms returned shortly after completing antibiotics. He states his symptoms are exactly the same as prior episodes. He denies diarrhea, constipation, vomiting, or fever. REVIEW OF SYSTEMS: A 10 point review of systems was performed and is negative with the exception of the elements mentioned in the history of present illness. PHYSICAL EXAM: General Appearance: Alert, dehydrated, appropriate, anxious and uncomfortable appearing. Head: Atraumatic without scalp tenderness or obvious injury Eyes: Pupils equal, round, reactive to light and accommodation, EOMI, no trauma , no injection. Ears: Clear bilaterally, no perforation, normal landmarks Nose: Atraumatic, no rhinorrhea, clear. Throat: There is no erythema or exudates, no lesions, normal tonsils, mucus membranes dry. Neck: Supple, non-tender, no lymphadenopathy. Respiratory: No retractions, no distress, no wheezes, and no accessory muscle use. Lungs are clear to auscultation bilaterally. Cardiovascular: Regular rate and rhythm, no murmurs, rubs, or gallops. Good capillary refill all extremities. Gastrointestinal: Abdomen is soft, severe LLQ tenderness, non-distended, no masses, no rebound, no guarding, no peritoneal signs. Musculoskeletal: Normal active ROM of all extremities, atraumatic. Neurological: Alert, appropriate, and interactive. Nonfocal neuro exam. Skin: No rashes, good turgor, no nodules on palpation. PAST MEDICAL HISTORY: Diverticulitis with microperforation, kidney stones, hemorrhoids, history of c-diff. PAST SURGICAL HISTORY: Uretal stent SOCIAL HISTORY: Lives in [place]. Unemployed. Surgeon: Dr. Bonilla. Prior medical records reviewed including admission for abdominal pain 02/04/17. DIAGNOSTICS/PROCEDURES/CRITICAL CARE TIME: Abdominal CT: sigmoid diverticulitis DIFFERENTIAL DIAGNOSIS: The differential diagnosis for the patient's abdominal pain included but was not limited to recurrent diverticulitis, appendicitis, cholecystitis, hernias, testicular torsion, gastritis, and urinary tract infection. MEDICAL DECISION MAKING: This is a 41 y/o male with a history of diverticulitis who returns with what appears to be recurrent diverticulitis. He has severe LLQ tenderness on exam and appears uncomfortable, anxious, and dehydrated. Plan for IV, labs, abdominal CT, symptomatic treatment, and consult with surgery. 1mg IV Ativan, 1mg IV Dilaudid, 4mg IV Zofran, and 1L IV NS administered. WBC 15.67. CT shows sigmoid diverticulitis. Dr. Bonilla paged. [id number]: Consulted with Dr. Bonilla, surgeon. He does not see acute surgical process on CT, but will evaluate and follow patient's admission. 500mg IV Flagyl and 750mg IV Levaquin administered. - Data Points Laboratory Results: Laboratory Results 03/01/17 09:03 03/01/17 09:03 03/01/17 03/01/17 09:03 09:03 WBC 15.67 10^3/uL H 10^3/uL (3.80-9.50) RBC 5.21 10^6/uL 10^6/uL (4.40-6.38) Hgb 15.9 g/dL g/dL (13.7-17.5) Hct 44.5 % % (40.0-51.0) MCV 85.4 fL fL (81.5-99.8) MCH 30.5 pg pg (27.9-34.1) MCHC 35.7 g/dL g/dL (32.4-36.7) RDW 13.3 % % (11.5-15.2) Plt Count 248 10^3/uL 10^3/uL (150-400) MPV 9.7 fL fL (8.7-11.7) Neut % (Auto) 82.5 % H % (39.3-74.2) Lymph % (Auto) 11.6 % L % (15.0-45.0) [place] % (Auto) 4.6 % % (4.5-13.0) Eos % (Auto) 0.6 % % (0.6-7.6) Baso % (Auto) 0.4 % % (0.3-1.7) Nucleat RBC Rel Count 0.0 % % (0.0-0.2) Absolute Neuts (auto) 12.93 10^3/uL H 10^3/uL (1.70-6.50) Absolute Lymphs (auto) 1.82 10^3/uL 10^3/uL (1.00-3.00) Absolute Monos (auto) 0.72 10^3/uL 10^3/uL (0.30-0.80) Absolute Eos (auto) 0.09 10^3/uL 10^3/uL (0.03-0.40) Absolute Basos (auto) 0.07 10^3/uL 10^3/uL (0.02-0.10) Absolute Nucleated RBC 0.00 10^3/uL 10^3/uL (0-0.01) Immature Gran % 0.3 % % (0.0-1.1) Immature Gran # 0.04 10^3/uL 10^3/uL (0.00-0.10) Sodium 141 mEq/L mEq/L (134-144) Potassium 4.3 mEq/L mEq/L (3.5-5.2) Chloride 109 mEq/L mEq/L (97-110) Carbon Dioxide 16 mEq/l L mEq/l (22-31) Anion Gap 16 mEq/L mEq/L (8-16) BUN 15 mg/dL mg/dL (7-23) Creatinine 1.1 mg/dL mg/dL (0.7-1.3) Estimated GFR > 60 Glucose 158 mg/dL H mg/dL (70-100) Calcium 10.2 mg/dL mg/dL (8.5-10.4) Total Bilirubin 1.0 mg/dL mg/dL (0.1-1.4) Conjugated Bilirubin 0.4 mg/dL mg/dL (0.0-0.5) Unconjugated Bilirubin 0.6 mg/dL mg/dL (0.0-1.1) AST 35 IU/L IU/L (17-59) ALT 40 IU/L IU/L (21-72) Alkaline Phosphatase 79 IU/L IU/L (38-126) Total Protein 7.3 g/dL g/dL (6.3-8.2) Albumin 4.9 g/dL g/dL (3.5-5.0) Lipase 218.0 IU/L IU/L (23-300) Medications Given: Discontinued Medications Hydromorphone HCl (Dilaudid) 1 mg IVP EDNOW ONE Stop: 03/01/17 08:01 Last Admin: 03/01/17 09:15 Dose: 1 mg Hydromorphone HCl (Dilaudid) 1 mg IVP EDNOW ONE Stop: 03/01/17 09:05 Last Admin: 03/01/17 09:17 Dose: Not Given Sodium Chloride (Ns) 1,000 mls @ 0 mls/hr IV ONCE ONE PRN Reason: Wide Open Stop: 03/01/17 09:05 Last Admin: 03/01/17 09:17 Dose: Not Given Sodium Chloride (Ns) 1,000 mls @ 0 mls/hr IV ONCE ONE; Wide Open PRN Reason: Protocol Stop: 03/01/17 09:05 Last Admin: 03/01/17 09:16 Dose: 1,000 mls Lorazepam (Ativan Injection) 1 mg IVP EDNOW ONE Stop: 03/01/17 09:05 Last Admin: 03/01/17 09:17 Dose: Not Given Lorazepam (Ativan Injection) 1 mg IVP EDNOW ONE Stop: 03/01/17 09:06 Last Admin: 03/01/17 09:16 Dose: 1 mg Ondansetron HCl (Zofran) 4 mg IVP EDNOW ONE Stop: 03/01/17 09:05 Last Admin: 03/01/17 09:16 Dose: 4 mg Departure - Departure Disposition: [facility] Inpatient Acute Clinical Impression: Sigmoid diverticulitis Condition: Fair Referrals: Satish Turpin MD [Primary Care Provider] - As per Instructions Report Scribed for: Dinesh Duran Report Scribed by: Nabila Laureano Date of Report: 03/01/17 Time of Report: 09:00
[2017-03-01 09:10] LABS: % IMMATURE GRANULYOCYTES 0.3 % (0.0-1.1); ABSOLUTE IMMATURE GRANULOCYTES 0.04 10^3/uL (0.00-0.10); ADD DIFF? NO; ADD MORPH? NO; ADD SCAN? NO; ATYPICAL LYMPHOCYTE FLAG 20 (0-99); FRAGMENT RBC FLAG 0 (0-99); HEMATOCRIT 44.5 % (40.0-51.0); HEMOGLOBIN 15.9 g/dL (13.7-17.5); LEFT SHIFT FLG 20 (0-99); LIPEMIA HEMOLYSIS FLAG 90 (0-99); MEAN CELL HEMOGLOBIN 30.5 pg (27.9-34.1); MEAN CELL HEMOGLOBIN CONCENTR. 35.7 g/dL (32.4-36.7); MEAN CELL VOLUME 85.4 fL (81.5-99.8); MEAN PLATELET VOLUME 9.7 fL (8.7-11.7); PLATELET CLUMPS FLAG 0 (0-99); PLATELET COUNT 248 10^3/uL (150-400); RED BLOOD CELL COUNT 5.21 10^6/uL (4.40-6.38); RED CELL DISTRIBUTION WIDTH 13.3 % (11.5-15.2)
[2017-03-01] MEDS ORDERED: IOPAMIDOL (ISOVUE-300) 100 ML BTL ONE (09:16)
[2017-03-01 09:33] LABS: ALANINE AMINOTRANSFERASE 40 IU/L (21-72); ALBUMIN 4.9 g/dL (3.5-5.0); ALKALINE PHOSPHATASE 79 IU/L (38-126); ANION GAP 16 mEq/L (8-16); ASPARTATE AMINOTRANSFERASE 35 IU/L (17-59); BILIRUBIN-CONJUGATED 0.4 mg/dL (0.0-0.5); BILIRUBIN-UNCONJUGATED 0.6 mg/dL (0.0-1.1); CALCIUM 10.2 mg/dL (8.5-10.4); CARBON DIOXIDE 16 mEq/l (22-31); CHLORIDE 109 mEq/L (97-110); CREATININE 1.1 mg/dL (0.7-1.3); GLOMERULAR FILTRATION RATE > 60; GLUCOSE 158 mg/dL (70-100); POTASSIUM 4.3 mEq/L (3.5-5.2); SODIUM 141 mEq/L (134-144); TOTAL PROTEIN 7.3 g/dL (6.3-8.2)
[2017-03-01] MEDS ORDERED: ONDANSETRON 4 MG/2 ML VIAL IVP PRN (12:19)
[2017-03-01] MEDS ORDERED: PROMETHAZINE HCL 25 MG/ML INJ IVP PRN (12:19)
[2017-03-01] MEDS ORDERED: HYDROmorphONE/DILAUDID 1 MG/ML SYR IVP PRN (12:19)
[2017-03-01] MEDS ORDERED: ONDANSETRON DISINTEGRATING 4 MG TAB PO PRN (12:19)
[2017-03-01] MEDS ORDERED: ACETAMINOPHEN 325 MG TAB PO PRN (12:19)
[2017-03-01] MEDS ORDERED: PROMETHAZINE HCL 25 MG TAB PO PRN (12:19)
[2017-03-01] MEDS ORDERED: LACTULOSE 20 GM/30 ML UDCUP PO PRN (12:22)
[2017-03-01] MEDS ORDERED: BISACODYL 10 MG SUPP PR PRN (12:22)
[2017-03-01] MEDS ORDERED: MAGNESIUM HYDROXIDE 30 ML UDCUP PO PRN (12:22)
[2017-03-01] MEDS ORDERED: POLYETHYLENE GLYCOL 3350 17 GM PKT PO PRN (12:22)
[2017-03-01] MEDS: oxyCODONE IR 5 MG TAB PO PRN ×2 (13:20→19:57)
[2017-03-01] MEDS: NS 1,000 ML IV SCH ×2 (13:21→20:04)
--- NOTE | 2017-03-01 13:57 | PDGENHP ---
History and Physical - Chief Complaint Acute nausea and vomiting - History of Present Illness Primary care provider: Dr. Desai Primary general surgeon: Dr. Person HPI: 41-year-old male presenting with acute nausea and vomiting characterized as nonbloody emesis with associated abdominal pain located in the left lower quadrant as well as frequent, loose bowel movements with onset of symptoms 2 days prior and duration persistent and worsening thereafter. The patient reports that the character of his symptoms exactly that of his previous diverticulitis episodes. Prior to his onset of symptoms, the patient was otherwise feeling well. He has been symptom-free since the treatment of his last diverticulitis episode earlier this month. He reports that he had previously been eating and drinking well but the nausea and vomiting have prevented good oral intake. He has attempted to manage his symptoms with oral Zofran and oxycodone but has been unable to secondary to poor GI tolerance. His abdominal pain and nausea have both been somewhat alleviated by IV medications received in the emergency department as well as the IV fluids and antibiotics. He reports that hot baths also seemed to redirect the focus of his discomfort. Of note, the patient had been intending to follow up with Dr. Bonilla to consider surgery for diverticulitis. His followup appointment has yet to occur. History Information - Allergies/Home Medication List Allergies/Adverse Reactions: bee stings, wasp stings Allergy (Intermediate, Uncoded 02/04/17 08:23) swelling Home Medications: Herbals/Supplements -Info Only 1 ea PO DAILY 02/04/17 [Last Taken Unknown] Multivitamins [Multivitamin (*)] 1 each PO DAILY 02/04/17 [Last Taken Unknown] Ondansetron Odt [Zofran Odt 4 mg (*)] 4 mg PO DAILY PRN 02/04/17 [Last Taken ] I have personally reviewed and updated: family history, medical history, social history, surgical history - Past Medical History Additional medical history: Chronic nephrolithiasis. History of diverticulitis. History of C diff colitis. ?IBS. Neck injury resulting in disability - Surgical History Additional surgical history: Ureteral stent. Lipoma removal - Family History Additional family history: Mother with diverticulitis and extended, complicated hospitalization with surgeries at [facility] - Social History Smoking Status: Former smoker Alcohol Use: None Drug Use: Marijuana Additional social history: Patient lives with mother Review of Systems ROS: 10pt was reviewed & negative except for what was stated in HPI & below Gastrointestinal: Reports: vomitting, abdominal pain, diarrhea, nausea Physical Exam Temp Pulse Resp BP Pulse Ox 36.8 C 67 12 119/77 97 03/01/17 12:21 03/01/17 12:21 03/01/17 12:21 03/01/17 12:21 03/01/17 12:21 O2 (L/minute) 1.5 Constitutional: no apparent distress (t), not in pain ( Mild left lower quadra) , uncomfortable, No chronically ill appearing Eyes: PERRL, anicteric sclera, EOMI Ears, Nose, Mouth, Throat: moist mucous membranes, hearing normal, ears appear normal, no oral mucosal ulcers Cardiovascular: regular rate and rhythym, no murmur, rub, or gallop, No edema Respiratory: no respiratory distress, no rales or rhonchi, clear to auscultation Gastrointestinal: no palpable masses, tenderness ( left lower quadrant), No normoactive bowel sounds ( hypoactive bowel sounds), No guarding, No distension Genitourinary: no bladder fullness, no bladder tenderness, other ( no CVA tenderness) Neurologic: AAOx3, sensation intact bilaterally, No weakness Psychiatric: interacting appropriately, not anxious, not encephalopathic, thought process linear Lab Data & Imaging Review 03/01/17 09:03 03/01/17 09:03 WBC 15.67 10^3/uL (3.80-9.50) H 03/01/17 09:03 RBC 5.21 10^6/uL (4.40-6.38) 03/01/17 09:03 Hgb 15.9 g/dL (13.7-17.5) 03/01/17 09:03 Hct 44.5 % (40.0-51.0) 03/01/17 09:03 MCV 85.4 fL (81.5-99.8) 03/01/17 09:03 MCH 30.5 pg (27.9-34.1) 03/01/17 09:03 MCHC 35.7 g/dL (32.4-36.7) 03/01/17 09:03 RDW 13.3 % (11.5-15.2) 03/01/17 09:03 Plt Count 248 10^3/uL (150-400) 03/01/17 09:03 MPV 9.7 fL (8.7-11.7) 03/01/17 09:03 Neut % (Auto) 82.5 % (39.3-74.2) H 03/01/17 09:03 Lymph % (Auto) 11.6 % (15.0-45.0) L 03/01/17 09:03 [place] % (Auto) 4.6 % (4.5-13.0) 03/01/17 09:03 Eos % (Auto) 0.6 % (0.6-7.6) 03/01/17 09:03 Baso % (Auto) 0.4 % (0.3-1.7) 03/01/17 09:03 Nucleat RBC Rel Count 0.0 % (0.0-0.2) 03/01/17 09:03 Absolute Neuts (auto) 12.93 10^3/uL (1.70-6.50) H 03/01/17 09:03 Absolute Lymphs (auto) 1.82 10^3/uL (1.00-3.00) 03/01/17 09:03 Absolute Monos (auto) 0.72 10^3/uL (0.30-0.80) 03/01/17 09:03 Absolute Eos (auto) 0.09 10^3/uL (0.03-0.40) 03/01/17 09:03 Absolute Basos (auto) 0.07 10^3/uL (0.02-0.10) 03/01/17 09:03 Absolute Nucleated RBC 0.00 10^3/uL (0-0.01) 03/01/17 09:03 Immature Gran % 0.3 % (0.0-1.1) 03/01/17 09:03 Immature Gran # 0.04 10^3/uL (0.00-0.10) 03/01/17 09:03 Sodium 141 mEq/L (134-144) 03/01/17 09:03 Potassium 4.3 mEq/L (3.5-5.2) 03/01/17 09:03 Chloride 109 mEq/L (97-110) 03/01/17 09:03 Carbon Dioxide 16 mEq/l (22-31) L 03/01/17 09:03 Anion Gap 16 mEq/L (8-16) 03/01/17 09:03 BUN 15 mg/dL (7-23) 03/01/17 09:03 Creatinine 1.1 mg/dL (0.7-1.3) 03/01/17 09:03 Estimated GFR > 60 03/01/17 09:03 Glucose 158 mg/dL (70-100) H 03/01/17 09:03 Calcium 10.2 mg/dL (8.5-10.4) 03/01/17 09:03 Total Bilirubin 1.0 mg/dL (0.1-1.4) 03/01/17 09:03 Conjugated Bilirubin 0.4 mg/dL (0.0-0.5) 03/01/17 09:03 Unconjugated Bilirubin 0.6 mg/dL (0.0-1.1) 03/01/17 09:03 AST 35 IU/L (17-59) 03/01/17 09:03 ALT 40 IU/L (21-72) 03/01/17 09:03 Alkaline Phosphatase 79 IU/L (38-126) 03/01/17 09:03 Total Protein 7.3 g/dL (6.3-8.2) 03/01/17 09:03 Albumin 4.9 g/dL (3.5-5.0) 03/01/17 09:03 Lipase 218.0 IU/L (23-300) 03/01/17 09:03 Visualized and Interpreted imaging results: Yes Interpretation: abdominal CT demonstrating sigmoid diverticulitis with small area of what appears to be micro perforation, nephrolithiasis bilaterally without any ureteral obstruction Assessment & Plan Assessment: 41-year-old male presenting with acute diverticulitis Plan: 1. Diverticulitis. Acute, recurrent, new problem this provider, further workup indicated. Left lower quadrant pain, leukocytosis, CT evidence supporting the diagnosis of diverticulitis with areas of micro perforation, recurrent and patient has been advised to pursue surgical care in the past (Reviewed outside records including 02/06/[address] Zachary Veloz, reporting that surgery was offered, patient was not placed on C diff treatment given that his PCR was positive but he did not appear to be having active symptoms). -continue with IV levofloxacin and metronidazole -continue with IV fluids, NPO with ice chips -IV pain and antiemetic medication -send blood cultures and monitor CBC -get coags in case patient requires surgery -discussed with Donya Burr, hospitalist provider, she is advised me that Dr. Bonilla is the patient's preferred surgical provider and I have confirmed this with the patient, I have contacted Dr. Bonilla and we will determine whether the patient should receive a couple days of IV fluids and IV antibiotics prior to proceeding to surgery or whether he should be given couple weeks of recovery time prior to proceeding 2. Metabolic acidosis. Acute, secondary to hydrocortisone acid lost with vomiting, continue to monitor serum bicarbonate level and give IV fluids 3. Nephrolithiasis. Chronic, do not appear to be clinically contributing to his presentation 4. Hx of Cdiff. Presenting sx more c/w diverticulitis, hold on sending CDiff, may be spuriously positive w/o representing true infxn -given that he was not receiving CDiff tx immediately prior to presentation, will not place on ppx dosing Diet. NPO with chips Prophylaxis. Low risk patient, SCDs Code. Full, mother is [facility] Disposition. Anticipated discharge is 03/02/2017, pending clinical improvement and ability to manage this without urgent or emergent surgery. The patient does require surgery or is unable to tolerate oral intake and requires ongoing IV fluids and IV pain medications, he will be upgraded to inpatient admission status tomorrow.
[2017-03-01] MEDS: SENNOSIDES/DOCUSATE SODIUM TAB PO SCH (20:13)
[2017-03-02] MEDS: oxyCODONE IR 5 MG TAB PO PRN (01:02)
[2017-03-02 04:19] VITALS: RESP 14
[2017-03-02 05:25] LABS: % IMMATURE GRANULYOCYTES 0.3 % (0.0-1.1); ABSOLUTE IMMATURE GRANULOCYTES 0.03 10^3/uL (0.00-0.10); ADD DIFF? NO; ADD MORPH? NO; ADD SCAN? NO; ATYPICAL LYMPHOCYTE FLAG 20 (0-99); FRAGMENT RBC FLAG 0 (0-99); HEMATOCRIT 37.4 % (40.0-51.0); HEMOGLOBIN 12.9 g/dL (13.7-17.5); LEFT SHIFT FLG 10 (0-99); LIPEMIA HEMOLYSIS FLAG 90 (0-99); MEAN CELL HEMOGLOBIN 30.4 pg (27.9-34.1); MEAN CELL HEMOGLOBIN CONCENTR. 34.5 g/dL (32.4-36.7); MEAN PLATELET VOLUME 9.8 fL (8.7-11.7); PLATELET CLUMPS FLAG 10 (0-99); PLATELET COUNT 167 10^3/uL (150-400); RED BLOOD CELL COUNT 4.25 10^6/uL (4.40-6.38); RED CELL DISTRIBUTION WIDTH 13.2 % (11.5-15.2)
[2017-03-02 05:35] LABS: INR 1.12 (0.83-1.16); PROTIME(PATIENT) 14.3 SEC (12.0-15.0)
[2017-03-02 05:36] LABS: APTT 33.5 SEC (23.0-38.0)
[2017-03-02 05:42] LABS: ANION GAP 7 mEq/L (8-16); CALCIUM 8.9 mg/dL (8.5-10.4); CARBON DIOXIDE 22 mEq/l (22-31); CHLORIDE 108 mEq/L (97-110); GLOMERULAR FILTRATION RATE > 60; GLUCOSE 86 mg/dL (70-100); SODIUM 137 mEq/L (134-144)
[2017-03-02 07:26] VITALS: BP 126/63; PULSE 62; TEMP 98.3; O2SAT 95
[2017-03-02] MEDS ORDERED: Herbals/Supplements -Info Only PO SCH (09:00)
[2017-03-02] MEDS ORDERED: MULTIVITAMINS 1 EACH TAB PO SCH (09:00)
[2017-03-02] MEDS: SENNOSIDES/DOCUSATE SODIUM TAB PO SCH (12:10)
--- NOTE | 2017-03-02 14:40 | PDDCSUM ---
Discharge Summary Discharge Summary: DISCHARGE SUMMARY FOLLOW-UP ITEMS: Scheduled surgery with Dr Bonilla DATE OF ADMISSION: 03/01/2017 DATE OF DISCHARGE: 03/02/2017 DISCHARGE DIAGNOSES: 1. Acute, recurrent diverticulitis 2. Acute metabolic acidosis 3. Chronic nephrolithiasis 4. History of C difficile colitis CONSULTATIONS: General surgery PROCEDURES / IMAGING: Abdominal CT demonstrating left-sided diverticulitis with small microperforations CHIEF COMPLAINT: Acute abdominal pain SUBJECTIVE: Patient reports that he is not experiencing abdominal pain at time of discharge , his bowel movements have normalized, he is tolerating oral clear liquids PHYSICAL EXAM ON DISCHARGE: Systolic blood pressure 120, heart rate 60, afebrile overnight, abdomen is soft nontender nondistended note rebound or guarding, bowel sounds are present LABS ON DISCHARGE: Creatinine 1, white blood cell count 9800, hemoglobin 12.9 HOSPITAL COURSE BY PROBLEM: 1. Acute, recurrent diverticulitis. Evidenced by focal tenderness, pain, diarrhea and vomiting, leukocytosis, radiographic evidence of diverticulitis with small area of microperforation. Patient was stabilized with pain medications and antiemetics, IV fluids, and antibiotics. He was seen in consultation by Dr. Bonilla who recommended scheduled surgery. The patient will be discharged on levofloxacin and metronidazole to be taken in the interim as well as pain and antiemetic medications. Of note, his leukocytosis improved on repeat lab draw and his abdomen was benign at time of discharge. 2. Acute metabolic acidosis. Secondary to hydrochloric acid reduction with vomitus, improved with IV fluids and reduction in vomiting. 3. Chronic nephrolithiasis. These are not clinically significant during this hospitalization 4. History of C difficile colitis. Patient did not have any evidence of C diff diarrhea during this hospitalization. He does not require prophylactic vancomycin as he did not present on prophylactic medications. DISCHARGE MEDICATIONS: Please see official discharge medication reconciliation sheet in chart , levofloxacin and metronidazole until surgery, oxycodone immediate release, Zofran as needed DISCHARGE INSTRUCTIONS: Please schedule for follow-up surgery with Dr. Bonilla.
== END 2017-03-02 10:53 | disposition home or self-care (01) ==
LOC: F3E 12:11
PROVIDERS: ADMIT Internal Medicine; ATTEND Internal Medicine
PROC: 3E033GC Introduction of Other Therapeutic Substance into Peripheral Vein, Percutaneous Approach (ICD-10-PCS; principal; 2017-03-01)
DX: K57.32 Diverticulitis of large intestine without perforation or abscess without bleeding (principal); E87.2 Acidosis; E86.9 Volume depletion, unspecified; N20.0 Calculus of kidney; Z86.19 Personal history of other infectious and parasitic diseases; Z87.891 Personal history of nicotine dependence
CPT/HCPCS: 74177; 96361; 96365; 96375; 99285; G0378; J1170; J1956; J2060; J2405; Q9967

== ENCOUNTER 2017-04-05 06:47 | Inpatient (IN) | payer MEDICAID ==
[2017-04-05] MEDS ORDERED: HYDROmorphONE/DILAUDID 1 MG/ML SYR IVP ONE ×4 (07:10→10:16)
[2017-04-05] MEDS ORDERED: ONDANSETRON 4 MG/2 ML VIAL IVP ONE ×3 (07:10→08:54)
[2017-04-05] MEDS ORDERED: NS 1,000 ML IV ONE (07:10)
--- NOTE | 2017-04-05 07:14 | EDPHY ---
H & P Stated Complaint: abd pain Time Seen by Provider: 04/05/17 07:03 HPI/ROS: CHIEF COMPLAINT: Abdominal pain HISTORY OF PRESENT ILLNESS: Patient is a 41-year-old man with a history of recurrent diverticulitis who was referred to have outpatient surgery Dr. Marc but has not yet made the appointment. He was admitted 1 month ago with diverticulitis and micro perforation and discharged the next day on Flagyl and Levaquin. This is his 5th admission for diverticulitis this year. He had been feeling better until yesterday when he began having left lower quadrant pain. It is progressed today and he is diaphoretic and shaking. It is constant. No back or flank pain. He does have a history of chronic nephrolithiasis as well. He also has a remote history of C diff but no diarrhea currently. No vomiting. No diarrhea. No bloody stool. REVIEW OF SYSTEMS: Constitutional: denies: chills, fever, recent illness, recent injury EENTM: denies: blurred vision, double vision, nose congestion Respiratory: denies: cough, shortness of breath Cardiac: denies: chest pain, irregular heart rate, lightheadedness, palpitations Gastrointestinal/Abdominal: See HPI Genitourinary: denies: dysuria, frequency, hematuria, pain Musculoskeletal: denies: joint pain, muscle pain Skin: denies: lesions, rash, jaundice, bruising Neurological: denies: headache, numbness, paresthesia, tingling, dizziness, weakness Hematologic/Lymphatic: denies: blood clots, easy bleeding, easy bruising Immunologic/allergic: denies: HIV/AIDS, transplant EXAM: GENERAL: Diaphoretic, shaking HEAD: Atraumatic, normocephalic. EYES: Pupils equal round and reactive to light, extraocular movements intact, sclera anicteric, conjunctiva are normal. ENT: TMs normal, nares patent, oropharynx clear without exudates. Moist mucous membranes. NECK: Normal range of motion, supple without lymphadenopathy or JVD. LUNGS: Breath sounds clear to auscultation bilaterally and equal. No wheezes rales or rhonchi. HEART: Regular rate and rhythm without murmurs, rubs or gallops. ABDOMEN: Left lower quadrant tenderness, BACK: No CVA tenderness, no spinal tenderness, step-offs or deformities EXTREMITIES: Normal range of motion, no pitting or edema. No clubbing or cyanosis. NEUROLOGICAL: Cranial nerves II through XII grossly intact. Normal speech, normal gait. 5/5 strength, normal movement in all extremities, normal sensation PSYCH: Normal mood, normal affect. SKIN: Warm, dry, normal turgor, no visible rashes or lesions. Source: Patient Exam Limitations: No limitations - Personal History Current Tetanus/Diphtheria Vaccine: Unsure Current Tetanus Diphtheria and Acellular Pertussis (TDAP): Unsure Tetanus Vaccine Date: 2006 - Medical/Surgical History Hx Asthma: No Hx Chronic Respiratory Disease: No Hx Diabetes: No Hx Cardiac Disease: No Hx Renal Disease: No Hx Cirrhosis: No Hx Alcoholism: No Hx HIV/AIDS: No Hx Splenectomy or Spleen Trauma: No Other PMH: PMH: Renal stones and ureterolithiasis requiring stent, IBS, diverticulitis with microperforation, Clostridium difficile. PSH:HEMORRHOIDS, R ureter stent 12/20 - Family History Significant Family History: No pertinent family hx - Social History Smoking Status: Former smoker Alcohol Use: Sober Drug Use: None Constitutional: Initial Vital Signs Temperature (C) 36.7 C 04/05/17 06:52 Heart Rate 93 04/05/17 06:52 Respiratory Rate 24 H 04/05/17 06:52 Blood Pressure 146/102 H 04/05/17 06:52 O2 Sat (%) 99 04/05/17 06:52 O2 Delivery Mode Nasal Cannula O2 (L/minute) 2 Allergies/Adverse Reactions: bee stings, wasp stings Allergy (Intermediate, Uncoded 04/05/17 06:51) swelling Home Medications: Medication Instructions Recorded Herbals/Supplements -Info Only 1 ea PO DAILY 02/04/17 Multivitamins [Multivitamin (*)] 1 each PO DAILY 02/04/17 Ondansetron Odt [Zofran Odt 4 mg 4 mg PO DAILY PRN #40 tab 03/02/17 (*)] oxyCODONE IR [Oxycodone Ir (*)] 5 - 10 mg PO Q4 PRN #20 tab 03/02/17 Medical Decision Making ED Course/Re-evaluation: We discussed CT imaging. The patient states that he has had several this year would like to defer. We will try to treat him symptomatically at this point. 8:30 a.m. The patient is still having significant pain although much improved from previous. I discussed the case with Dr. Juaquin Gallegos who will admit to the hospital service and requests surgery consultation. He agrees the plan thus far. 8:35 a.m. I discussed the case with Dr. Joni Campbell who will consult. Patient previously has seen Dr. Person however never followed up with him. Differential Diagnosis: Partial list of the Differential diagnosis considered include but were not limited to; diverticulitis, kidney stone, urinary tract infection, severe sepsis and although unlikely based on the history and physical exam, I also considered septic shock, obstruction, appendicitis. - Data Points Laboratory Results: Laboratory Results 04/05/17 07:20 04/05/17 07:20 04/05/17 04/05/17 04/05/17 07:20 07:20 07:20 WBC 13.55 10^3/uL H 10^3/uL (3.80-9.50) RBC 5.34 10^6/uL 10^6/uL (4.40-6.38) Hgb 16.5 g/dL g/dL (13.7-17.5) Hct 45.6 % % (40.0-51.0) MCV 85.4 fL fL (81.5-99.8) MCH 30.9 pg pg (27.9-34.1) MCHC 36.2 g/dL g/dL (32.4-36.7) RDW 13.2 % % (11.5-15.2) Plt Count 234 10^3/uL 10^3/uL (150-400) MPV 9.6 fL fL (8.7-11.7) Neut % (Auto) 74.1 % % (39.3-74.2) Lymph % (Auto) 19.1 % % (15.0-45.0) [place] % (Auto) 5.3 % % (4.5-13.0) Eos % (Auto) 0.7 % % (0.6-7.6) Baso % (Auto) 0.4 % % (0.3-1.7) Nucleat RBC Rel Count 0.0 % % (0.0-0.2) Absolute Neuts (auto) 10.03 10^3/uL H 10^3/uL (1.70-6.50) Absolute Lymphs (auto) 2.59 10^3/uL 10^3/uL (1.00-3.00) Absolute Monos (auto) 0.72 10^3/uL 10^3/uL (0.30-0.80) Absolute Eos (auto) 0.10 10^3/uL 10^3/uL (0.03-0.40) Absolute Basos (auto) 0.05 10^3/uL 10^3/uL (0.02-0.10) Absolute Nucleated RBC 0.00 10^3/uL 10^3/uL (0-0.01) Immature Gran % 0.4 % % (0.0-1.1) Immature Gran # 0.06 10^3/uL 10^3/uL (0.00-0.10) PT 12.9 SEC SEC (12.0-15.0) INR 0.98 (0.83-1.16) APTT 31.7 SEC SEC (23.0-38.0) VBG Lactic Acid Sodium 145 mEq/L H mEq/L (134-144) Potassium 4.1 mEq/L mEq/L (3.5-5.2) Chloride 110 mEq/L mEq/L (97-110) Carbon Dioxide 18 mEq/l L mEq/l (22-31) Anion Gap 17 mEq/L H mEq/L (8-16) BUN 16 mg/dL mg/dL (7-23) Creatinine 1.1 mg/dL mg/dL (0.7-1.3) Estimated GFR > 60 Glucose 146 mg/dL H mg/dL (70-100) Calcium 10.4 mg/dL mg/dL (8.5-10.4) Total Bilirubin 1.0 mg/dL mg/dL (0.1-1.4) Conjugated Bilirubin 0.2 mg/dL mg/dL (0.0-0.5) Unconjugated Bilirubin 0.8 mg/dL mg/dL (0.0-1.1) AST 39 IU/L IU/L (17-59) ALT 56 IU/L IU/L (21-72) Alkaline Phosphatase 86 IU/L IU/L (38-126) Total Protein 7.6 g/dL g/dL (6.3-8.2) Albumin 4.9 g/dL g/dL (3.5-5.0) Lipase 301.0 IU/L H IU/L (23-300) 04/05/17 07:20 WBC RBC Hgb Hct MCV MCH MCHC RDW Plt Count MPV Neut % (Auto) Lymph % (Auto) [place] % (Auto) Eos % (Auto) Baso % (Auto) Nucleat RBC Rel Count Absolute Neuts (auto) Absolute Lymphs (auto) Absolute Monos (auto) Absolute Eos (auto) Absolute Basos (auto) Absolute Nucleated RBC Immature Gran % Immature Gran # PT INR APTT VBG Lactic Acid 3.5 mmol/L H mmol/L (0.7-2.1) Sodium Potassium Chloride Carbon Dioxide Anion Gap BUN Creatinine Estimated GFR Glucose Calcium Total Bilirubin Conjugated Bilirubin Unconjugated Bilirubin AST ALT Alkaline Phosphatase Total Protein Albumin Lipase Medications Given: Discontinued Medications Hydromorphone HCl (Dilaudid) 1 mg IVP EDNOW ONE Stop: 04/05/17 07:11 Last Admin: 04/05/17 07:22 Dose: 1 mg Hydromorphone HCl (Dilaudid) 1 mg IVP EDNOW ONE Stop: 04/05/17 07:37 Last Admin: 04/05/17 07:39 Dose: 1 mg Hydromorphone HCl (Dilaudid) 1 mg IVP EDNOW ONE Stop: 04/05/17 08:51 Last Admin: 04/05/17 08:59 Dose: 1 mg Hydromorphone HCl (Dilaudid) 1 mg IVP EDNOW ONE Stop: 04/05/17 10:17 Last Admin: 04/05/17 10:30 Dose: 1 mg Sodium Chloride (Ns) 1,000 mls @ 0 mls/hr IV EDNOW ONE; Wide Open PRN Reason: Protocol Stop: 04/05/17 07:11 Last Admin: 04/05/17 07:26 Dose: 1,000 mls Levofloxacin/Dextrose (Levaquin 750 Mg (Premix)) 150 mls @ 100 mls/hr IV EDNOW ONE PRN Reason: Protocol Stop: 04/05/17 08:39 Last Admin: 04/05/17 07:22 Dose: 150 mls Metronidazole/Sodium Chloride (Flagyl 500 Mg (Premix)) 100 mls @ 100 mls/hr IV EDNOW ONE PRN Reason: Protocol Stop: 04/05/17 08:10 Last Admin: 04/05/17 07:26 Dose: 100 mls Sodium Chloride (Ns) 2,200 mls @ 4,400 mls/hr 30 ml/kg infuse over 30 min ( 2200 ml) IV EDNOW ONE PRN Reason: Protocol Stop: 04/05/17 08:21 Last Admin: 04/05/17 08:26 Dose: 2,200 mls Lorazepam (Ativan Injection) 1 mg IVP EDNOW ONE Stop: 04/05/17 07:37 Last Admin: 04/05/17 07:40 Dose: 1 mg Ondansetron HCl (Zofran) 4 mg IVP EDNOW ONE Stop: 04/05/17 07:11 Last Admin: 04/05/17 07:22 Dose: 4 mg Ondansetron HCl (Zofran) 4 mg IVP ONCE ONE Stop: 04/05/17 08:51 Last Admin: 04/05/17 08:59 Dose: 4 mg Ondansetron HCl (Zofran) 4 mg IVP ONCE ONE Stop: 04/05/17 08:55 Last Admin: 04/05/17 08:57 Dose: Not Given Departure - Departure Disposition: [facility] Acute Clinical Impression: Severe sepsis Diverticulitis Qualifiers: Diverticulitis site: unspecified part of intestinal tract Diverticulitis bleeding: without bleeding Diverticulitis complication: unspecified complication status Qualified Code(s): K57.92 - Diverticulitis of intestine, part unspecified, without perforation or abscess without bleeding Condition: Fair
[2017-04-05 07:26] LABS: % IMMATURE GRANULYOCYTES 0.4 % (0.0-1.1); ABSOLUTE IMMATURE GRANULOCYTES 0.06 10^3/uL (0.00-0.10); ADD DIFF? NO; ADD MORPH? NO; ADD SCAN? NO; ATYPICAL LYMPHOCYTE FLAG 20 (0-99); FRAGMENT RBC FLAG 0 (0-99); HEMATOCRIT 45.6 % (40.0-51.0); HEMOGLOBIN 16.5 g/dL (13.7-17.5); LEFT SHIFT FLG 10 (0-99); LIPEMIA HEMOLYSIS FLAG 90 (0-99); MEAN CELL HEMOGLOBIN 30.9 pg (27.9-34.1); MEAN CELL HEMOGLOBIN CONCENTR. 36.2 g/dL (32.4-36.7); MEAN CELL VOLUME 85.4 fL (81.5-99.8); MEAN PLATELET VOLUME 9.6 fL (8.7-11.7); PLATELET CLUMPS FLAG 0 (0-99); PLATELET COUNT 234 10^3/uL (150-400); RED BLOOD CELL COUNT 5.34 10^6/uL (4.40-6.38); RED CELL DISTRIBUTION WIDTH 13.2 % (11.5-15.2)
[2017-04-05 07:34] LABS: INR 0.98 (0.83-1.16); PROTIME(PATIENT) 12.9 SEC (12.0-15.0)
[2017-04-05 07:35] LABS: APTT 31.7 SEC (23.0-38.0)
[2017-04-05] MEDS ORDERED: LORazepam 2 MG/ML INJ IVP ONE (07:36)
[2017-04-05 07:39] LABS: ALANINE AMINOTRANSFERASE 56 IU/L (21-72); ALBUMIN 4.9 g/dL (3.5-5.0); ALKALINE PHOSPHATASE 86 IU/L (38-126); ANION GAP 17 mEq/L (8-16); ASPARTATE AMINOTRANSFERASE 39 IU/L (17-59); BILIRUBIN-CONJUGATED 0.2 mg/dL (0.0-0.5); BILIRUBIN-UNCONJUGATED 0.8 mg/dL (0.0-1.1); CALCIUM 10.4 mg/dL (8.5-10.4); CARBON DIOXIDE 18 mEq/l (22-31); CHLORIDE 110 mEq/L (97-110); CREATININE 1.1 mg/dL (0.7-1.3); GLOMERULAR FILTRATION RATE > 60; GLUCOSE 146 mg/dL (70-100); POTASSIUM 4.1 mEq/L (3.5-5.2); SODIUM 145 mEq/L (134-144); TOTAL PROTEIN 7.6 g/dL (6.3-8.2)
[2017-04-05] MEDS ORDERED: NS 2,200 ML IV ONE (07:52)
[2017-04-05] MEDS ORDERED: ONDANSETRON 4 MG/2 ML VIAL ONE (08:53)
[2017-04-05 09:49] LABS: COLOR YELLOW; LEUKOCYTE ESTERASE,URINE NEGATIVE (NEGATIVE); NITRITE,URINE NEGATIVE (NEGATIVE)
[2017-04-05 09:50] LABS: MUCUS TRACE /lpf (NONE-1+)
[2017-04-05] MEDS ORDERED: ONDANSETRON DISINTEGRATING 4 MG TAB PO PRN (11:31)
[2017-04-05] MEDS ORDERED: OXYCODONE/APAP 5/325 TAB PO PRN (11:31)
[2017-04-05] MEDS ORDERED: ACETAMINOPHEN 325 MG TAB PO PRN (11:31)
--- NOTE | 2017-04-05 12:08 | GHP ---
[f rep st] HISTORY AND PHYSICAL DATE OF ADMISSION: 04/05/2017 CHIEF COMPLAINT: Abdominal pain. HISTORY OF PRESENT ILLNESS: This is a 41-year-old male with a history of recurrent diverticulitis. He has probably been admitted once a month for this entire year. He is supposed to follow up with Dr. Bonilla to get an elective partial colectomy done. Diverticulitis is always on the left side. Yesterday he developed a slight amount of abdominal pain, which worsened this morning. He does ad leonid to some diaphoresis, chills. No diarrhea currently. No vomiting. REVIEW OF SYSTEMS: A 10-point review of systems was obtained and, other than stated above, was nega tive. PAST MEDICAL HISTORY: 1. Recurrent diverticulitis. 2. History of nephrolithiasis, requiring stent. 3. Irritable bowel syndrome. 4. History of Clostridium difficile colitis and C diff colonization, with last positive C diff in J une. FAMILY HISTORY: Positive for diverticulitis in his mother. SOCIAL HISTORY: No smoking or excessive alcohol. PHYSICAL EXAMINATION: VITAL SIGNS: Afebrile, blood pressure is 119/82, heart rate 66, oxygen satur ation 97% 2 L. GENERAL: The patient is well-developed, no apparent distress. HEENT: Nonicteric s clerae. Extraocular movements intact. Moist mucous membranes. NECK: Supple. No thyromegaly. DYLON NGS: Good effort. Clear to auscultation bilaterally. CARDIOVASCULAR: Regular rate and rhythm. N o murmurs, rubs, or gallops. ABDOMEN: Positive bowel sounds. Soft. Mild left lower quadrant tend erness. No rebound or guarding. EXTREMITIES: No clubbing, cyanosis, or edema. SKIN: Without rm h, dry, intact. NEUROLOGIC: He is moving all 4 extremities equally. PSYCH: Normal affect. LABS: White count elevated at 13, sodium 145, potassium 4.1. ASSESSMENT: This is a 41-year-old male presenting with recurrent diverticulitis. PLAN: 1. Recurrent diverticulitis. We will continue with IV antibiotics. Surgery has been consulted. A lthough probably ideal to wait until inflammation has improved, I guess they could consider maybe ta clarke the surgery after few days of antibiotics, just to get it done, as he seems to not be able to g et this scheduled outpatient. We will continue with IV Invanz. 2. Recent history of Clostridium difficile. We will prophylactically treat with vancomycin. 3. History of nephrolithiasis. Symptoms do not seem to be consistent with that, as he knows that t his pain is most definitely his diverticulitis pain. /[id number]/MODL
[2017-04-05] MEDS: ERTAPENEM 1 GM in NS 100 ML IV SCH (12:40)
[2017-04-05] MEDS: D5W 1/2 NS W/ 20 KCl/L 1,000 ML IV SCH ×2 (12:40→23:24)
[2017-04-05] MEDS: HYDROmorphONE/DILAUDID 1 MG/ML SYR IVP PRN ×2 (13:55→18:49)
[2017-04-05] MEDS: ONDANSETRON 4 MG/2 ML VIAL IVP PRN ×3 (13:57→23:06)
[2017-04-05] MEDS ORDERED: LORazepam 0.5 MG TAB PO PRN (22:14)
[2017-04-05] MEDS ORDERED: oxyCODONE IR 5 MG TAB PO PRN (22:15)
[2017-04-05] MEDS: VANCOMYCIN 125 MG/2.5 ML UDL PO SCH (23:07)
[2017-04-06 04:51] LABS: % IMMATURE GRANULYOCYTES 0.1 % (0.0-1.1); ABSOLUTE IMMATURE GRANULOCYTES 0.01 10^3/uL (0.00-0.10); ADD DIFF? NO; ADD MORPH? NO; ADD SCAN? NO; ATYPICAL LYMPHOCYTE FLAG 20 (0-99); FRAGMENT RBC FLAG 0 (0-99); HEMATOCRIT 38.7 % (40.0-51.0); HEMOGLOBIN 13.6 g/dL (13.7-17.5); LEFT SHIFT FLG 0 (0-99); LIPEMIA HEMOLYSIS FLAG 90 (0-99); MEAN CELL HEMOGLOBIN 30.8 pg (27.9-34.1); MEAN CELL HEMOGLOBIN CONCENTR. 35.1 g/dL (32.4-36.7); MEAN CELL VOLUME 87.6 fL (81.5-99.8); MEAN PLATELET VOLUME 9.8 fL (8.7-11.7); PLATELET CLUMPS FLAG 10 (0-99); PLATELET COUNT 162 10^3/uL (150-400); RED BLOOD CELL COUNT 4.42 10^6/uL (4.40-6.38)
[2017-04-06 05:14] LABS: ANION GAP 10 mEq/L (8-16); CALCIUM 9.1 mg/dL (8.5-10.4); CARBON DIOXIDE 24 mEq/l (22-31); CHLORIDE 108 mEq/L (97-110); CREATININE 1.1 mg/dL (0.7-1.3); GLOMERULAR FILTRATION RATE > 60; GLUCOSE 99 mg/dL (70-100); POTASSIUM 4.2 mEq/L (3.5-5.2); SODIUM 142 mEq/L (134-144)
--- NOTE | 2017-04-06 06:46 | GCON ---
[f rep st] CONSULTATION A 41-year-old gentleman who presents to the hospital with recurrent episodes of diverticulitis, sigm oid. The patient has had multiple episodes in the past, the last one most recently in February. His ab dominal problems are complicated by the fact that he has also had C difficile colitis which was pres ent on his last admission, but not current currently active. The patient started having pain over t he last several days. He went on bowel rest, but this did not solve the problem. He is scheduled t o see Dr. Pancho Bonilla for elective colon resection. His mother also had similar colon problems, but had multiple issues from her surgery. The patient is trepidatious and worried about his own per kal outcomes. PAST MEDICAL HISTORY: Significant for C difficile colitis, recurrent diverticulitis, recurrent neph rolithiasis, and the patient has been hospitalized multiple times for this problem. PAST SURGICAL HISTORY: Stent for nephrolithiasis and he has said extraction of a stone, but he has multiple indwelling stones still at this time. ALLERGIES: Bee stings and wasps. MEDICATIONS: At home including Zofran, oxycodone, herbal supplements, and multivitamins. 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 FAMILY HISTORY: Significant for diverticulitis with his mother. SOCIAL HISTORY: History of being a former smoker. Denies alcohol or illicit drug use. All other systems were reviewed and are negative. OBJECTIVE: VITAL SIGNS: The patient has a temperature of 36.5, heart rate of 66, blood pressure of 118/82, saturating 97% on 2 L nasal cannula. HEENT: His sclerae are anicteric. His pupils are re active. His oropharynx is moist without lesions. NECK: No JVD, thyromegaly, or supraclavicular or cervical adenopathy. HEART: Regular heart tones, S1 and S2. LUNGS: Clear bilaterally. ABDOMEN: Soft, tender in the left lower quadrant without peritoneal signs. He has no scars. He has no her nias. EXTREMITIES: Without edema. Has 2+/2+ carotid, radial, femoral, and dorsalis pedis pulses. SKIN: He has no rashes. LYMPH: No adenopathy. PSYCHIATRIC: His affect is slightly strange. Th e patient was very confrontational and desires only to have Dr. Bonilla perform his surgery based on his own personal research. He has been placed on Invanz. CT scan personally reviewed demonstrates perforated sigmoid diverticu litis from February of this past year. His laboratory studies show a white blood cell count of 13.5, hemoglobin of 16, hematocrit of 45, pl atelet count of 234. Chemistries of sodium 145, potassium 4.1, chloride 110, bicarb 18, creatinine 1.1, glucose 146. Bilirubin 1.0, AST 36, ALT 56, alkaline phosphatase 86. His lipase is slightly e levated at 301 which is just above the upper limits of normal. IMPRESSION: Recurrent sigmoid diverticulitis. Recommend bowel rest, antibiotics, and interval prosper ctomy. I have discussed this with Dr. Pancho Bonilla who will see the patient in the morning and alfie graff assume care from this point. /[id number]/MODL
[2017-04-06 07:42] VITALS: BP 119/75; PULSE 62; RESP 16; TEMP 98.2; O2SAT 96
[2017-04-06] MEDS: VANCOMYCIN 125 MG/2.5 ML UDL PO SCH (07:46)
[2017-04-06] MEDS: ERTAPENEM 1 GM in NS 100 ML IV SCH (07:46)
[2017-04-06] MEDS ORDERED: ENOXAPARIN 40 MG/0.4 ML SYR SC SCH (09:00)
--- NOTE | 2017-04-06 14:07 | GDS ---
[f rep st] DISCHARGE SUMMARY DISCHARGE DIAGNOSES: 1. Diverticulitis. 2. Recent history of positive Clostridium difficile. 3. Previous history of nephrolithiasis. HISTORY: The patient is a 41-year-old male who has been admitted probably half a dozen times in the last 6 months for acute left-sided diverticulitis. He was planning to get a partial colectomy done , but has not gone through with it. He presented with the same. HOSPITAL COURSE: Patient was admitted and placed on antibiotics. He improved and wanted to go home . This was reasonable, as he had minimal white count and not a lot of tenderness. He is going to b e discharged home with close followup with Surgery for a possible partial colectomy. The patient was C diff positive as recently as about 4 weeks ago. He will be given vancomycin proph ylactically to continue 5 days after antibiotics. DISPOSITION: Home. DISCHARGE MEDICATIONS: Vancomycin 125 mg p.o. b.i.d. for 15 days and Augmentin 1 p.o. b.i.d. for 10 days. /[id number]/MODL
== END 2017-04-06 14:30 | disposition home or self-care (01) | DRG 392 ==
LOC: F3E 10:45 → OBSVTOIN 11:31
PROVIDERS: ADMIT Internal Medicine Pulmonary Disease; ATTEND Internal Medicine
DX: K57.32 Diverticulitis of large intestine without perforation or abscess without bleeding (principal); Z86.19 Personal history of other infectious and parasitic diseases; Z87.891 Personal history of nicotine dependence
CPT/HCPCS: 96365; J1170; J1335; J1650; J1956; J2060; J2405

== ENCOUNTER 2017-04-07 07:33 | Observation (INO) | payer MEDICAID ==
--- NOTE | 2017-04-07 07:38 | EDPHY ---
H & P Time Seen by Provider: 04/07/17 07:36 HPI/ROS: CHIEF COMPLAINT: Severe abdominal pain HISTORY OF PRESENT ILLNESS: History and physical dated 04/05/2017 personally reviewed. Patient was admitted with recurrent diverticulitis and positive Clostridium difficile in February. He was discharged on April 06 but returns today. Currently on oral antibiotics for diverticulitis Augmentin, as well as oral vancomycin. Symptoms returned several hours ago. Severe abdominal pain associated with nausea but no vomiting. Recurrent diarrhea without blood or coffee grounds. Pain is left lower quadrant does not radiate. Much worse with movement or any attempt to eat or drink anything. REVIEW OF SYSTEMS: Eye: no change in vision ENT: no sore throat Cardiac: no chest pain or syncope Pulmonary: no cough or SOB Abdomen: HPI Musculoskeletal: no back pain Skin: no rash Neuro: no headache Constitutional: no fever : no urinary symptoms A comprehensive 10 point review of systems is otherwise negative aside from elements mentioned in the history of present illness. PAST MEDICAL HISTORY: Includes recurrent diverticulitis, nephrolithiasis requiring a stent, irritable bowel, Clostridium difficile colitis last positive test in February of this year. Family history: Positive for diverticulitis in his mother. Social history: Nonsmoker General Appearance: Alert and conversant, cooperative. Moderately uncomfortable. Eyes: No scleral icterus. ENT, Mouth: Normal mucous membranes. Respiratory: Normal respiratory effort, breath sounds equal, lungs are clear to auscultation. Cardiovascular: Regular rate and rhythm. Gastrointestinal: Abdomen is soft and non tender. No rebound or guarding. Neurological: Alert and oriented x3. Normally conversant. Walked from triage back into the room. Skin: Warm and dry, no rashes. Musculoskeletal: No peripheral edema and no joint swelling. Psychiatric: Not agitated. Emergency Department course/MDM: Dilaudid 1 mg IV, Zofran 4 mg IV, normal saline 2 L. It readmission to the hospital for treatment as inpatient; discharge yesterday and not doing well at home. 825: Still having pain, Haldol 2.5 and Benadryl 50 mg IV, dilaudid 0.5mg IV. 902: Improved, sleeping quietly, much better. Smoking Status: Former smoker Constitutional: Initial Vital Signs Temperature (C) 36.6 C 04/07/17 07:38 Heart Rate 88 04/07/17 07:38 Respiratory Rate 18 04/07/17 07:38 Blood Pressure 131/108 H 04/07/17 07:38 O2 Sat (%) 98 04/07/17 07:38 O2 Delivery Mode Room Air Allergies/Adverse Reactions: bee stings, wasp stings Allergy (Intermediate, Uncoded 04/07/17 07:36) swelling Home Medications: Medication Instructions Recorded Herbals/Supplements -Info Only 1 ea PO DAILY 02/04/17 Multivitamins [Multivitamin (*)] 1 each PO DAILY 02/04/17 Ondansetron Odt [Zofran Odt 4 mg 4 mg PO DAILY PRN #40 tab 03/02/17 (*)] oxyCODONE IR [Oxycodone Ir (*)] 5 - 10 mg PO Q4 PRN #20 tab 03/02/17 Amoxicillin/Clavulanate Pot 875 mg PO BID #20 tab 04/06/17 [Augmentin 875 MG TAB (*)] Vancomycin [Vancomycin (*)] 125 mg PO BID #30 cap 04/06/17 Medical Decision Making Differential Diagnosis: Differential considered including but not limited to diverticulitis, intra- abdominal abscess, intestinal perforation, viral or food related, medication side effect Consult/Admit Bed Type: [place] [id number] - Data Points Laboratory Results: Laboratory Results 04/07/17 07:50 04/07/17 07:50 04/07/17 04/07/17 07:50 07:50 WBC 10.29 10^3/uL H 10^3/uL (3.80-9.50) RBC 5.43 10^6/uL 10^6/uL (4.40-6.38) Hgb 16.8 g/dL g/dL (13.7-17.5) Hct 46.2 % % (40.0-51.0) MCV 85.1 fL fL (81.5-99.8) MCH 30.9 pg pg (27.9-34.1) MCHC 36.4 g/dL g/dL (32.4-36.7) RDW 12.9 % % (11.5-15.2) Plt Count 229 10^3/uL D 10^3/uL (150-400) MPV 9.6 fL fL (8.7-11.7) Neut % (Auto) 72.4 % % (39.3-74.2) Lymph % (Auto) 20.9 % % (15.0-45.0) [place] % (Auto) 4.6 % % (4.5-13.0) Eos % (Auto) 1.2 % % (0.6-7.6) Baso % (Auto) 0.6 % % (0.3-1.7) Nucleat RBC Rel Count 0.0 % % (0.0-0.2) Absolute Neuts (auto) 7.46 10^3/uL H 10^3/uL (1.70-6.50) Absolute Lymphs (auto) 2.15 10^3/uL 10^3/uL (1.00-3.00) Absolute Monos (auto) 0.47 10^3/uL 10^3/uL (0.30-0.80) Absolute Eos (auto) 0.12 10^3/uL 10^3/uL (0.03-0.40) Absolute Basos (auto) 0.06 10^3/uL 10^3/uL (0.02-0.10) Absolute Nucleated RBC 0.00 10^3/uL 10^3/uL (0-0.01) Immature Gran % 0.3 % % (0.0-1.1) Immature Gran # 0.03 10^3/uL 10^3/uL (0.00-0.10) Sodium 144 mEq/L mEq/L (134-144) Potassium 4.3 mEq/L mEq/L (3.5-5.2) Chloride 108 mEq/L mEq/L (97-110) Carbon Dioxide 19 mEq/l L mEq/l (22-31) Anion Gap 17 mEq/L H mEq/L (8-16) BUN 19 mg/dL mg/dL (7-23) Creatinine 1.2 mg/dL mg/dL (0.7-1.3) Estimated GFR > 60 Glucose 119 mg/dL H mg/dL (70-100) Calcium 10.3 mg/dL mg/dL (8.5-10.4) Medications Given: Discontinued Medications Diphenhydramine HCl (Benadryl Injection) 50 mg IVP EDNOW ONE Stop: 04/07/17 08:26 Last Admin: 04/07/17 08:35 Dose: 50 mg Haloperidol Lactate (Haldol Injection) 2.5 mg IVP EDNOW ONE Stop: 04/07/17 08:26 Last Admin: 04/07/17 08:35 Dose: 2.5 mg Hydromorphone HCl (Dilaudid) 1 mg IVP EDNOW ONE Stop: 04/07/17 07:50 Last Admin: 04/07/17 07:57 Dose: 1 mg Hydromorphone HCl (Dilaudid) 0.5 mg IVP EDNOW ONE Stop: 04/07/17 08:27 Last Admin: 04/07/17 08:35 Dose: 0.5 mg Sodium Chloride (Ns) 1,000 mls @ 0 mls/hr IV EDNOW ONE; Wide Open PRN Reason: Protocol Stop: 04/07/17 07:50 Last Admin: 04/07/17 07:56 Dose: 1,000 mls Sodium Chloride (Ns) 1,000 mls @ 0 mls/hr IV EDNOW ONE; Wide Open PRN Reason: Protocol Stop: 04/07/17 07:50 Last Admin: 04/07/17 08:36 Dose: 1,000 mls Ondansetron HCl (Zofran) 4 mg IVP EDNOW ONE Stop: 04/07/17 07:50 Last Admin: 04/07/17 07:56 Dose: 4 mg Departure - Departure Disposition: [facility] Acute Clinical Impression: Diverticulitis Condition: Good
[2017-04-07] MEDS ORDERED: NS 1,000 ML IV ONE ×2 (07:49)
[2017-04-07] MEDS ORDERED: HYDROmorphONE/DILAUDID 1 MG/ML SYR IVP ONE ×2 (07:49→08:26)
[2017-04-07] MEDS ORDERED: ONDANSETRON 4 MG/2 ML VIAL IVP ONE (07:49)
[2017-04-07 08:11] LABS: % IMMATURE GRANULYOCYTES 0.3 % (0.0-1.1); ABSOLUTE IMMATURE GRANULOCYTES 0.03 10^3/uL (0.00-0.10); ADD DIFF? NO; ADD MORPH? NO; ADD SCAN? NO; ATYPICAL LYMPHOCYTE FLAG 20 (0-99); FRAGMENT RBC FLAG 0 (0-99); HEMATOCRIT 46.2 % (40.0-51.0); HEMOGLOBIN 16.8 g/dL (13.7-17.5); LEFT SHIFT FLG 0 (0-99); LIPEMIA HEMOLYSIS FLAG 90 (0-99); MEAN CELL HEMOGLOBIN 30.9 pg (27.9-34.1); MEAN CELL HEMOGLOBIN CONCENTR. 36.4 g/dL (32.4-36.7); MEAN CELL VOLUME 85.1 fL (81.5-99.8); MEAN PLATELET VOLUME 9.6 fL (8.7-11.7); PLATELET CLUMPS FLAG 10 (0-99); PLATELET COUNT 229 10^3/uL (150-400); RED BLOOD CELL COUNT 5.43 10^6/uL (4.40-6.38); RED CELL DISTRIBUTION WIDTH 12.9 % (11.5-15.2)
[2017-04-07] MEDS ORDERED: HALOPERIDOL LACT 5 MG/ML INJ IVP ONE (08:25)
[2017-04-07 08:40] LABS: ANION GAP 17 mEq/L (8-16); CALCIUM 10.3 mg/dL (8.5-10.4); CARBON DIOXIDE 19 mEq/l (22-31); CHLORIDE 108 mEq/L (97-110); CREATININE 1.2 mg/dL (0.7-1.3); GLOMERULAR FILTRATION RATE > 60; GLUCOSE 119 mg/dL (70-100); POTASSIUM 4.3 mEq/L (3.5-5.2); SODIUM 144 mEq/L (134-144)
[2017-04-07] MEDS ORDERED: ONDANSETRON DISINTEGRATING 4 MG TAB PO PRN (11:06)
[2017-04-07] MEDS ORDERED: ONDANSETRON 4 MG/2 ML VIAL IVP PRN (11:06)
[2017-04-07] MEDS ORDERED: ACETAMINOPHEN 325 MG TAB PO PRN (11:06)
[2017-04-07] MEDS ORDERED: NON-FORMULARY NEW DRUG (Vancomycin 125 MG) PO SCH (11:15)
[2017-04-07] MEDS ORDERED: VANCOMYCIN 125 MG/2.5 ML UDL PO SCH (11:30)
[2017-04-07] MEDS: HYDROmorphONE/DILAUDID 1 MG/ML SYR IVP PRN ×4 (12:19→20:37)
[2017-04-07] MEDS: ERTAPENEM 1 GM in NS 100 ML IV SCH (13:14)
[2017-04-07] MEDS: D5W 1/2 NS W/ 20 KCl/L 1,000 ML IV SCH (13:15)
--- NOTE | 2017-04-07 15:27 | GHP ---
[[facility]] HISTORY AND PHYSICAL DATE OF ADMISSION: 04/07/2017 CHIEF COMPLAINT: Diarrhea, abdominal pain. HISTORY OF PRESENT ILLNESS: This is a 41-year-old male, whom I just discharged yesterday. He has a history of recurrent diverticulitis. He was admitted 2 days ago with left lower quadrant abdominal pain, consistent with his previous episode of diverticulitis. He was then treated with IV antibiot ics and, the following day, he was feeling better and wanted to go home. We discharged him then and then, this morning, he felt ill and had significant diarrhea. He says his pain this time is a diaz le bit different. It feels more like Clostridium difficile. It is crampy. He did have 6 bowel mov ements. He is not having fevers, some chills. REVIEW OF SYSTEMS: A 10-point review of systems was obtained and, other than the history of present illness, was negative. PAST MEDICAL HISTORY: 1. Recurrent diverticulitis. He is seeing Dr. Bonilla for a possible elective colectomy in the [facility]. 2. History of Clostridium difficile colitis. 3. History of nephrolithiasis. MEDICATIONS: Reviewed. SOCIAL HISTORY: No smoking or alcohol. FAMILY HISTORY: Mother had recurrent diverticulitis. PHYSICAL EXAM: VITAL SIGNS: Afebrile. Blood pressure is 113/69, heart rate 70, oxygen saturation 90% on room air. GENERAL APPEARANCE: The patient is well developed, in no apparent distress. HEEN T: Nonicteric sclerae. Extraocular movements intact. Moist mucous membranes. NECK: Supple. No thyromegaly. LUNGS: Good effort. Clear to auscultation bilaterally. CARDIOVASCULAR: Regular rat e and rhythm. No murmurs, rubs or gallops. ABDOMEN: Positive bowel sounds. Soft. Some mild left lower quadrant tenderness. No rebound or guarding. EXTREMITIES: No clubbing, cyanosis, or edema. SKIN: Without rash. Warm, dry, intact. NEUROLOGIC: Alert and oriented x3. Moving all 4 extrem ities equally. PSYCH: Normal affect. LABORATORY DATA: White count slightly elevated at 10. Chemistry does show a small anion gap acidosis. ASSESSMENT: This is a 41-year-old male with a history of both diverticulitis and Clostridium diffic ile colitis, presenting with continued abdominal pain from diverticulitis and possible Clostridium d ifficile. PLAN: 1. Diverticulitis. We will continue with IV Invanz. 2. Possible Clostridium difficile. I did discharge the patient on vancomycin b.i.d. dosing. We wi ll increase to q.i.d. dosing until a Clostridium difficile panel comes back. /[id number]/MODL
[2017-04-07] MEDS: VANCOMYCIN 125 MG/2.5 ML UDL PO SCH ×2 (16:26→20:37)
[2017-04-07] MEDS: oxyCODONE IR 5 MG TAB PO PRN (23:55)
[2017-04-08] MEDS: D5W 1/2 NS W/ 20 KCl/L 1,000 ML IV SCH (03:07)
[2017-04-08 05:16] LABS: % IMMATURE GRANULYOCYTES 0.2 % (0.0-1.1); ABSOLUTE IMMATURE GRANULOCYTES 0.02 10^3/uL (0.00-0.10); ADD DIFF? NO; ADD MORPH? NO; ADD SCAN? NO; ATYPICAL LYMPHOCYTE FLAG 20 (0-99); FRAGMENT RBC FLAG 0 (0-99); HEMATOCRIT 40.4 % (40.0-51.0); HEMOGLOBIN 14.3 g/dL (13.7-17.5); LEFT SHIFT FLG 0 (0-99); LIPEMIA HEMOLYSIS FLAG 90 (0-99); MEAN CELL HEMOGLOBIN 30.8 pg (27.9-34.1); MEAN CELL HEMOGLOBIN CONCENTR. 35.4 g/dL (32.4-36.7); MEAN CELL VOLUME 87.1 fL (81.5-99.8); MEAN PLATELET VOLUME 9.8 fL (8.7-11.7); PLATELET CLUMPS FLAG 0 (0-99); PLATELET COUNT 165 10^3/uL (150-400); RED BLOOD CELL COUNT 4.64 10^6/uL (4.40-6.38)
[2017-04-08 05:40] LABS: ANION GAP 9 mEq/L (8-16); CALCIUM 9.5 mg/dL (8.5-10.4); CARBON DIOXIDE 24 mEq/l (22-31); CHLORIDE 108 mEq/L (97-110); GLOMERULAR FILTRATION RATE > 60; GLUCOSE 101 mg/dL (70-100); POTASSIUM 4.2 mEq/L (3.5-5.2); SODIUM 141 mEq/L (134-144)
[2017-04-08] MEDS: VANCOMYCIN 125 MG/2.5 ML UDL PO SCH (06:08)
[2017-04-08] MEDS: oxyCODONE IR 5 MG TAB PO PRN (06:34)
[2017-04-08] MEDS: ERTAPENEM 1 GM in NS 100 ML IV SCH (08:02)
[2017-04-08 09:02] VITALS: BP 124/76; PULSE 69; RESP 20; TEMP 98.6; O2SAT 95
--- NOTE | 2017-04-08 17:56 | GDS ---
[f rep st] DISCHARGE SUMMARY DISCHARGE DIAGNOSES: 1. Kidney stone with spontaneous passage. 2. History of recurrent diverticulitis. 3. History of Clostridium difficile colitis. HISTORY: The patient is a 41-year-old male with a history of recurrent diverticulitis. Surgery wit h Dr. Bonilla for elective colectomy has been recommended, but he has not followed through. He al so has a history of recurrent kidney stones. Unfortunately, his abdominal pain is almost identical whether he is passing a kidney stone or having another episode of diverticulitis. He presented with a left lower quadrant pain consistent with his previous episodes. He was started on IV antibiotics and was feeling better and discharged home. After arriving home, he had recurrence of pain and cam e back to the emergency room for a second admission. He never had a CAT scan because he has had so many CAT scans recently, and his radiation risk is high. He was empirically treated for diverticuli tis; however, on his second admission clearly passed a kidney stone. So, I think this episode is mo re likely due to kidney stone and diverticulitis. Antibiotics were discontinued. He was observed a nd is pain-free for over 7 hours at the time of hospital discharge, so I do believe this kidney ston e episode has passed. If he has recurrence of pain at that point, we may need to bite the bullet an d do yet another CAT scan. DISCHARGE MEDICATIONS: Please see computer record for full detailed list. No new medications given at time of hospital discharge. Discontinued medications are antibiotics Augmentin 875 mg p.o. b.i. d. and vancomycin given empirically to prevent C difficile as I do not think the diverticulitis is t he cause of this episode. ADDITIONAL DISCHARGE INSTRUCTIONS: Follow up with primary care, Dr. Turpin. Patient seen and examined by me on the day of discharge. /[id number]/MODL
== END 2017-04-08 13:52 | disposition home or self-care (01) ==
LOC: INTOOBSV 08:05 → F3E 09:42
PROVIDERS: ADMIT Internal Medicine; ATTEND Internal Medicine
DX: N20.0 Calculus of kidney (principal); K57.92 Diverticulitis of intestine, part unspecified, without perforation or abscess without bleeding; A04.7 Enterocolitis due to Clostridium difficile; Z87.442 Personal history of urinary calculi
CPT/HCPCS: 96361; 96374; 96375; 96376; 99285; G0378; J1170; J1200; J1335; J2405

== ENCOUNTER 2017-04-17 05:51 | Inpatient (IN) | payer MEDICAID ==
[2017-04-17] MEDS ORDERED: HYDROmorphONE/DILAUDID 1 MG/ML SYR IVP ONE ×2 (06:04→06:26)
[2017-04-17] MEDS ORDERED: ONDANSETRON 4 MG/2 ML VIAL IVP ONE (06:04)
[2017-04-17] MEDS ORDERED: ONDANSETRON 4 MG/2 ML VIAL ONE (06:05)
[2017-04-17] MEDS ORDERED: NS 1,000 ML IV ONE ×2 (06:10→06:52)
--- NOTE | 2017-04-17 06:15 | EDPHY ---
H & P Stated Complaint: abd pain, vomiting Time Seen by Provider: 04/17/17 06:09 HPI/ROS: Chief Complaint: Abdominal pain, nausea vomiting HPI: 41-year-old male with a complex abdominal history including chronic recurrent diverticulitis and recurrent kidney stones presenting with severe abdominal pain which is been going on for the past several days but worse this morning. Patient was most recently admitted here 9 days ago for similar which is attributed to kidney stone. Patient also states he has been passing multiple kidney stones over the last week. He has also had multiple recurrences of diverticulitis with associated abscesses and there is been discussion with Dr. Bonilla, general surgery about doing a colonic resection. He has had multiple CAT scans in the past and did not have a CT in this past admission. Denies any fevers or chills. Has had nausea and vomiting. He has not had any diarrhea. ROS: 10 point Review of Systems is negative except as noted in the HPI. PMH: Diverticulitis, kidney stones Social History: No smoking, no alcohol, daily marijuana Family History: non-contributory Physical Exam: Gen: Awake, Alert, uncomfortable appearing HEENT: Nose: no rhinorrhea Eyes: PERRLA, EOMI Mouth: Moist mucosa Neck: Supple, no JVD Chest: nontender, lungs clear to auscultation Heart: S1, S2 normal, no murmur Abd: Soft, diffuse tenderness with guarding, primarily in the left greater than right lower quadrant Back: no CVA tenderness, no midline tenderness Ext: no edema, non-tender Skin: no rash Neuro: CN II-XII intact, Sensation grossly intact, Strength 5/5 in bilateral upper and lower extremities - Personal History Tetanus Vaccine Date: 2006 - Medical/Surgical History Hx Asthma: No Hx Chronic Respiratory Disease: No Hx Diabetes: No Hx Cardiac Disease: No Hx Renal Disease: No Hx Cirrhosis: No Hx Alcoholism: No Hx HIV/AIDS: No Hx Splenectomy or Spleen Trauma: No Other PMH: PMH: Renal stones and ureterolithiasis requiring stent, IBS, diverticulitis with microperforation, Clostridium difficile. PSH:HEMORRHOIDS, R ureter stent 12/20 - Social History Smoking Status: Former smoker Constitutional: Initial Vital Signs Temperature (C) 37 C 04/17/17 05:53 Heart Rate 83 04/17/17 05:53 Respiratory Rate 20 04/17/17 05:53 Blood Pressure 144/95 H 04/17/17 05:53 O2 Sat (%) 99 04/17/17 05:53 O2 Delivery Mode Room Air Allergies/Adverse Reactions: bee stings, wasp stings Allergy (Intermediate, Uncoded 04/17/17 05:54) swelling Home Medications: Medication Instructions Recorded Herbals/Supplements -Info Only 1 ea PO DAILY 02/04/17 Multivitamins [Multivitamin (*)] 1 each PO DAILY 02/04/17 Ondansetron Odt [Zofran Odt 4 mg 4 mg PO DAILY PRN #40 tab 03/02/17 (*)] oxyCODONE IR [Oxycodone Ir (*)] 5 - 10 mg PO Q4 PRN #20 tab 03/02/17 Medical Decision Making ED Course/Re-evaluation: I have reviewed the patient's records. He has extensive multiple presentations here. He usually requires large amounts of narcotic control his pain. He has had 2 mg of Dilaudid still very uncomfortable. I have discussed with Dr. Allison, hospitalist. She agrees that given history presentation it is indicated to repeat a CT scan at this time. I will order CT scan with contrast. She will admit the patient to [facility] for further evaluation. - Data Points Laboratory Results: Laboratory Results 04/17/17 06:00 04/17/17 06:00 04/17/17 04/17/17 06:00 06:00 WBC 15.46 10^3/uL H 10^3/uL (3.80-9.50) RBC 5.34 10^6/uL 10^6/uL (4.40-6.38) Hgb 16.2 g/dL g/dL (13.7-17.5) Hct 46.2 % % (40.0-51.0) MCV 86.5 fL fL (81.5-99.8) MCH 30.3 pg pg (27.9-34.1) MCHC 35.1 g/dL g/dL (32.4-36.7) RDW 13.0 % % (11.5-15.2) Plt Count 327 10^3/uL 10^3/uL (150-400) MPV 9.5 fL fL (8.7-11.7) Neut % (Auto) 70.4 % % (39.3-74.2) Lymph % (Auto) 21.4 % % (15.0-45.0) [place] % (Auto) 6.1 % % (4.5-13.0) Eos % (Auto) 1.0 % % (0.6-7.6) Baso % (Auto) 0.7 % % (0.3-1.7) Nucleat RBC Rel Count 0.0 % % (0.0-0.2) Absolute Neuts (auto) 10.88 10^3/uL H 10^3/uL (1.70-6.50) Absolute Lymphs (auto) 3.31 10^3/uL H 10^3/uL (1.00-3.00) Absolute Monos (auto) 0.94 10^3/uL H 10^3/uL (0.30-0.80) Absolute Eos (auto) 0.16 10^3/uL 10^3/uL (0.03-0.40) Absolute Basos (auto) 0.11 10^3/uL H 10^3/uL (0.02-0.10) Absolute Nucleated RBC 0.00 10^3/uL 10^3/uL (0-0.01) Immature Gran % 0.4 % % (0.0-1.1) Immature Gran # 0.06 10^3/uL 10^3/uL (0.00-0.10) Sodium 142 mEq/L mEq/L (134-144) Potassium 4.6 mEq/L mEq/L (3.5-5.2) Chloride 106 mEq/L mEq/L (97-110) Carbon Dioxide 19 mEq/l L mEq/l (22-31) Anion Gap 17 mEq/L H mEq/L (8-16) BUN 16 mg/dL mg/dL (7-23) Creatinine 1.0 mg/dL mg/dL (0.7-1.3) Estimated GFR > 60 Glucose 124 mg/dL H mg/dL (70-100) Calcium 10.4 mg/dL mg/dL (8.5-10.4) Total Bilirubin 0.7 mg/dL mg/dL (0.1-1.4) Conjugated Bilirubin 0.3 mg/dL mg/dL (0.0-0.5) Unconjugated Bilirubin 0.4 mg/dL mg/dL (0.0-1.1) AST 39 IU/L IU/L (17-59) ALT 48 IU/L IU/L (21-72) Alkaline Phosphatase 90 IU/L IU/L (38-126) Total Protein 7.6 g/dL g/dL (6.3-8.2) Albumin 4.8 g/dL g/dL (3.5-5.0) Lipase 1025.0 IU/L H IU/L (23-300) Medications Given: Discontinued Medications Hydromorphone HCl (Dilaudid) 1 mg IVP EDNOW ONE Stop: 04/17/17 06:05 Last Admin: 04/17/17 06:19 Dose: 1 mg Hydromorphone HCl (Dilaudid) 1 mg IVP EDNOW ONE Stop: 04/17/17 06:27 Last Admin: 04/17/17 06:30 Dose: 1 mg Sodium Chloride (Ns) 1,000 mls @ 0 mls/hr IV ONCE ONE PRN Reason: Wide Open Stop: 04/17/17 06:11 Last Admin: 04/17/17 06:00 Dose: 1,000 mls Ondansetron HCl (Zofran) 4 mg IVP EDNOW ONE Stop: 04/17/17 06:05 Last Admin: 04/17/17 06:10 Dose: 4 mg Departure - Departure Disposition: [facility] Inpatient Acute Clinical Impression: Abdominal pain Condition: Fair
[2017-04-17 06:16] LABS: % IMMATURE GRANULYOCYTES 0.4 % (0.0-1.1); ABSOLUTE IMMATURE GRANULOCYTES 0.06 10^3/uL (0.00-0.10); ADD DIFF? NO; ADD MORPH? NO; ADD SCAN? NO; ATYPICAL LYMPHOCYTE FLAG 0 (0-99); FRAGMENT RBC FLAG 0 (0-99); HEMATOCRIT 46.2 % (40.0-51.0); HEMOGLOBIN 16.2 g/dL (13.7-17.5); LEFT SHIFT FLG 0 (0-99); LIPEMIA HEMOLYSIS FLAG 90 (0-99); MEAN CELL HEMOGLOBIN 30.3 pg (27.9-34.1); MEAN CELL HEMOGLOBIN CONCENTR. 35.1 g/dL (32.4-36.7); MEAN CELL VOLUME 86.5 fL (81.5-99.8); MEAN PLATELET VOLUME 9.5 fL (8.7-11.7); PLATELET CLUMPS FLAG 0 (0-99); PLATELET COUNT 327 10^3/uL (150-400); RED BLOOD CELL COUNT 5.34 10^6/uL (4.40-6.38)
[2017-04-17 06:26] LABS: ALANINE AMINOTRANSFERASE 48 IU/L (21-72); ALBUMIN 4.8 g/dL (3.5-5.0); ALKALINE PHOSPHATASE 90 IU/L (38-126); ANION GAP 17 mEq/L (8-16); ASPARTATE AMINOTRANSFERASE 39 IU/L (17-59); BILIRUBIN,TOTAL 0.7 mg/dL (0.1-1.4); BILIRUBIN-CONJUGATED 0.3 mg/dL (0.0-0.5); BILIRUBIN-UNCONJUGATED 0.4 mg/dL (0.0-1.1); CALCIUM 10.4 mg/dL (8.5-10.4); CARBON DIOXIDE 19 mEq/l (22-31); CHLORIDE 106 mEq/L (97-110); GLOMERULAR FILTRATION RATE > 60; GLUCOSE 124 mg/dL (70-100); POTASSIUM 4.6 mEq/L (3.5-5.2); SODIUM 142 mEq/L (134-144); TOTAL PROTEIN 7.6 g/dL (6.3-8.2)
[2017-04-17] MEDS ORDERED: ONDANSETRON DISINTEGRATING 4 MG TAB PO PRN (07:20)
[2017-04-17] MEDS ORDERED: ACETAMINOPHEN 325 MG TAB PO PRN (07:20)
[2017-04-17] MEDS ORDERED: PROMETHAZINE HCL 25 MG/ML INJ IVP PRN (07:26)
[2017-04-17] MEDS ORDERED: HYDROmorphONE/DILAUDID 1 MG/ML SYR IVP PRN (07:26)
[2017-04-17] MEDS ORDERED: IOPAMIDOL (ISOVUE-300) 100 ML BTL ONE (07:28)
[2017-04-17] MEDS ORDERED: ERTAPENEM 1 GM in NS 100 ML IV ONE (07:40)
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
[2017-04-17] MEDS: ONDANSETRON 4 MG/2 ML VIAL IVP PRN ×3 (08:45→20:48)
[2017-04-17] MEDS: NS 1,000 ML IV SCH (09:48)
[2017-04-17] MEDS: HYDROmorphONE/DILAUDID 1 MG/ML SYR IVP PRN ×5 (10:35→23:08)
[2017-04-17] MEDS ORDERED: LORazepam 2 MG/ML INJ IVP PRN (12:00)
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
[2017-04-17] MEDS: VANCOMYCIN 125 MG/2.5 ML UDL PO SCH ×3 (13:57→20:41)
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
[2017-04-17 14:32] LABS: COLOR PALE YELLOW; LEUKOCYTE ESTERASE,URINE NEGATIVE (NEGATIVE); NITRITE,URINE NEGATIVE (NEGATIVE)
[2017-04-17] MEDS: PIPERACILLIN/TAZO 3.375 GM/DEX 50 ML IV SCH ×2 (18:01→23:08)
[2017-04-18] MEDS: ONDANSETRON 4 MG/2 ML VIAL IVP PRN ×2 (02:18→07:50)
[2017-04-18] MEDS: HYDROmorphONE/DILAUDID 1 MG/ML SYR IVP PRN ×3 (02:19→07:50)
[2017-04-18] MEDS: NS 1,000 ML IV SCH (02:19)
[2017-04-18] MEDS: PIPERACILLIN/TAZO 3.375 GM/DEX 50 ML IV SCH (05:19)
[2017-04-18 05:33] LABS: % IMMATURE GRANULYOCYTES 0.1 % (0.0-1.1); ABSOLUTE IMMATURE GRANULOCYTES 0.01 10^3/uL (0.00-0.10); ADD DIFF? NO; ADD MORPH? NO; ADD SCAN? NO; ATYPICAL LYMPHOCYTE FLAG 10 (0-99); FRAGMENT RBC FLAG 0 (0-99); HEMATOCRIT 37.2 % (40.0-51.0); HEMOGLOBIN 13.3 g/dL (13.7-17.5); LEFT SHIFT FLG 0 (0-99); LIPEMIA HEMOLYSIS FLAG 90 (0-99); MEAN CELL HEMOGLOBIN 30.9 pg (27.9-34.1); MEAN CELL HEMOGLOBIN CONCENTR. 35.8 g/dL (32.4-36.7); MEAN CELL VOLUME 86.5 fL (81.5-99.8); MEAN PLATELET VOLUME 8.9 fL (8.7-11.7); PLATELET CLUMPS FLAG 0 (0-99); PLATELET COUNT 202 10^3/uL (150-400); RED CELL DISTRIBUTION WIDTH 12.9 % (11.5-15.2)
[2017-04-18 05:48] LABS: ANION GAP 10 mEq/L (8-16); CALCIUM 8.9 mg/dL (8.5-10.4); CARBON DIOXIDE 25 mEq/l (22-31); CHLORIDE 104 mEq/L (97-110); GLOMERULAR FILTRATION RATE > 60; GLUCOSE 93 mg/dL (70-100); POTASSIUM 4.1 mEq/L (3.5-5.2); SODIUM 139 mEq/L (134-144)
[2017-04-18 07:47] VITALS: BP 116/84; PULSE 59; RESP 15; TEMP 98.7; O2SAT 95
[2017-04-18] MEDS: VANCOMYCIN 125 MG/2.5 ML UDL PO SCH (07:50)
--- NOTE | 2017-04-18 09:07 | GHP ---
[f rep st] HISTORY AND PHYSICAL DATE OF ADMISSION: 04/17/2017 REASON FOR CONSULTATION: I have been asked to see the patient in regard to sigmoid diverticulitis w ith localized perforation. HISTORY OF PRESENT ILLNESS: This 41-year-old male is known to me from many hospital admissions with left lower quadrant pain, diverticulitis, and occasionally C difficile colitis. He came to the hospital yesterday because of worsening left lower quadrant pain. He also thinks he might have passed a kidney stone recently. His white blood count was elevated at 13,000. A CT scan showed gas was outside the colon near the sigmoid, worse than on previous x-rays. There is also diffuse thickening of the sigmoid colon. PHYSICAL EXAMINATION: ABDOMEN: Soft, benign, minimally tender in the left lower quadrant. LABORATORY DATA: White blood count today is 8000. ASSESSMENT: Diverticulitis with localized microscopic perforation. The patient seems to be respond ing to bowel rest and antibiotics. He states he is passing gas and having bowel movements. It is r easonable to start him on clear liquid diets. I would maintain a clear liquid diet for at least sev eral days. He can be switched to oral antibiotics at any time. I recommended we operate on him Wed (2 days from now) and do a sigmoid colectomy with primary anastomosis. He does not want to do this. The patient states he recently watched a video stating that he can control all of his problems with diet. I had a reasonable discussion with him centered on my belief that this is unlikely to control his recurrent sigmoid diverticulitis. The patient is resistant to any thoughts of surgery right no w and, as always, I have told him to call me at any time should he like to discuss this further or s chedule a colectomy. I also think that if we were to operate on him in the next few days, we most definitely would be abl e to do a primary anastomosis as he does not seem particularly ill. /[id number]/MODL
[2017-04-18] MEDS ORDERED: oxyCODONE IR 5 MG TAB PO PRN (09:51)
[2017-04-18] MEDS ORDERED: CIPROFLOXACIN 500 MG TAB PO SCH (10:00)
--- NOTE | 2017-04-18 10:42 | PDDCSUM ---
Discharge Summary Discharge Summary: Dates of service 04/17-04/18/17 Discharge diagnosis: # recurrent complicated diverticulitis # recent c diff # foot pain # recurrent nephrolithiasis # personality d/o Consultations: general surgery Procedures performed: abdominal ct Hospital course by problem: # recurrent complicated diverticulitis: with localized perforation and multiple hospitalizations for the same in the past--this will be the 8th hospitalization since 09/2016. Again has been recommended that he undergo colon resection and this has been scheduled for 04/20 with Chad. Patient states he is not going to do the surgery, will try dietary management first. It should be noted that he has repeatedly stated that we have refused to offer to help him, however, he has failed to follow up for the recommended treatment. His diet was advanced to clears by surgery and he has been transitioned to oral abx. He is requesting dc home and given that he is clinically stable and plans to remain on clear diet think it is reasonable to dc home on cipro/flagyl for plan of 14 days total abx and f/u with Chad either on Wednesday for surgery or in the coming week for ongoing mgmt. # recent c diff: will continue ppx oral vanco while on abx # foot pain: foot xray showing no acute/subacute or chronic fracture # recurrent nephrolithiasis: on personal review of abd ct chronic non obstructive nephrolithiasis still present without and e/o obstruction/stranding etc. Of note, patient plans to [facility]andy [facility] as he notes that this hospital "ignored" kidney stones he had for 3 years which led to his issues with recurrent diverticulitis. # personality disorder: as above, patient with significant difficulty dealing with his frustration and anger and feeling that he is not being treated properly here, threatening to frandy the hospital etc but also declining to be transferred to any other hospital when this was offered. DC home f/u with PCP and Raza as above > 35 minutes spent in dc of patient more than half in coordination of care
[2017-04-18] MEDS ORDERED: metroNIDAZOLE 500 MG TAB PO SCH (14:00)
== END 2017-04-18 12:06 | disposition home or self-care (01) | DRG 392 ==
LOC: OBSVTOIN 07:21 → F3E 08:52
PROVIDERS: ADMIT Hospitalist; ATTEND Hospitalist
DX: K57.20 Diverticulitis of large intestine with perforation and abscess without bleeding (principal); A04.7 Enterocolitis due to Clostridium difficile; M79.609 Pain in unspecified limb; N20.0 Calculus of kidney; F60.9 Personality disorder, unspecified; K58.9 Irritable bowel syndrome, unspecified; Z87.442 Personal history of urinary calculi; Z79.2 Long term (current) use of antibiotics
CPT/HCPCS: 96374; J1170; J1335; J2060; J2405; J2543; Q9967

== ENCOUNTER 2017-05-01 20:41 | Inpatient (IN) | payer MEDICAID ==
[2017-05-01] MEDS ORDERED: ONDANSETRON 4 MG/2 ML VIAL ONE (21:17)
[2017-05-01] MEDS ORDERED: HYDROmorphONE/DILAUDID 1 MG/ML SYR ONE (21:18)
[2017-05-01] MEDS ORDERED: ONDANSETRON 4 MG/2 ML VIAL IVP ONE (21:21)
[2017-05-01] MEDS ORDERED: HYDROmorphONE/DILAUDID 1 MG/ML SYR IVP ONE ×2 (21:21→22:02)
[2017-05-01] MEDS ORDERED: NS 1,000 ML IV ONE (21:22)
[2017-05-01 21:34] LABS: ABSOLUTE IMMATURE GRANULOCYTES 0.18 10^3/uL (0.00-0.10); ADD DIFF? NO; ADD MORPH? NO; ADD SCAN? NO; ATYPICAL LYMPHOCYTE FLAG 0 (0-99); FRAGMENT RBC FLAG 0 (0-99); HEMATOCRIT 42.8 % (40.0-51.0); HEMOGLOBIN 15.1 g/dL (13.7-17.5); LEFT SHIFT FLG 10 (0-99); LIPEMIA HEMOLYSIS FLAG 90 (0-99); MEAN CELL HEMOGLOBIN 30.4 pg (27.9-34.1); MEAN CELL HEMOGLOBIN CONCENTR. 35.3 g/dL (32.4-36.7); MEAN CELL VOLUME 86.3 fL (81.5-99.8); MEAN PLATELET VOLUME 9.4 fL (8.7-11.7); PLATELET CLUMPS FLAG 10 (0-99); PLATELET COUNT 299 10^3/uL (150-400); RED BLOOD CELL COUNT 4.96 10^6/uL (4.40-6.38); RED CELL DISTRIBUTION WIDTH 13.1 % (11.5-15.2)
[2017-05-01 21:47] LABS: ANION GAP 18 mEq/L (8-16); CALCIUM 10.3 mg/dL (8.5-10.4); CARBON DIOXIDE 19 mEq/l (22-31); CHLORIDE 103 mEq/L (97-110); CREATININE 1.3 mg/dL (0.7-1.3); GLOMERULAR FILTRATION RATE > 60; GLUCOSE 169 mg/dL (70-100); SODIUM 140 mEq/L (134-144)
[2017-05-01] MEDS ORDERED: NALOXONE HCL 0.4 MG/ML INJ IVP PRN (21:57)
[2017-05-01] MEDS ORDERED: ACETAMINOPHEN 325 MG TAB PO PRN (21:58)
[2017-05-01] MEDS ORDERED: ONDANSETRON DISINTEGRATING 4 MG TAB PO PRN (21:58)
[2017-05-01] MEDS ORDERED: PROMETHAZINE HCL 25 MG/ML INJ IVP PRN (21:58)
[2017-05-01] MEDS ORDERED: oxyCODONE IR 5 MG TAB PO PRN (22:04)
[2017-05-01] MEDS: NS 1,000 ML IV SCH (22:38)
[2017-05-01] MEDS: ONDANSETRON 4 MG/2 ML VIAL IVP PRN (22:38)
--- NOTE | 2017-05-01 22:38 | GHP ---
[f rep st] HISTORY AND PHYSICAL DATE OF ADMISSION: 05/01/2017 HISTORY OF PRESENT ILLNESS: The patient is a pleasant 41-year-old gentleman with history of diverti culosis and nephrolithiasis, who presents with left lower quadrant pain. He said it is "exactly the same as my abdominal pain always." He is still completing a course of antibiotics as he was recent ly discharged from the hospital. He is scheduled to have a hemicolectomy with Dr. Pancho boothe it sounds like there has been a little bit of issue with noncompliance and difficulty scheduling h is surgery. He has had some diarrhea. He says this feels just like his C difficile. It feels just like his nep hrolithiasis and just like his diverticulitis. It is a little bit difficult to tell. It does not s ound like there are any new symptoms. He is having some subjective fever and chills. He is eating okay. He had a bowel movement that was diarrhea today. REVIEW OF SYSTEMS: Complete 10-point Review of Systems conducted and negative except as noted in e HPI. ALLERGIES: Bee stings and wasp stings. HOME MEDICATIONS: Zofran, oxycodone, oral vancomycin. SOCIAL HISTORY: Lives with his mother. Marijuana. No alcohol. Not working. FAMILY HISTORY: Mother enjoys good health. PHYSICAL EXAM: VITAL SIGNS: Presenting blood pressure 140/94, pulse 79, breathing 15 times a minut e, 99% on 2 L. GENERAL: No acute distress. HEENT: Sclerae anicteric. Oropharynx clear. Mucous membranes moist. NECK: Supple without lymphadenopathy or JVD. LUNGS: Clear to auscultation bilat erally. HEART: S1, S2. ABDOMEN: Soft. There is left lower quadrant tenderness without rebound o r guarding. Bowel sounds are present but hypoactive. LOWER EXTREMITIES: Without edema. Calves no ntender. SKIN: Without rash. NEUROLOGIC: Nonfocal. LABORATORY DATA: White count 17.4, hematocrit 43, platelets are 299,000. Sodium 140, potassium 4, chloride 103, bicarb 19, BUN 17. Creatinine 1.3, he is up from baseline of 1.0. Glucose 169. There are no LFTs. UA is not done. There is no abdominal imaging. I have reviewed his previous [facility] records and summarized them in the HPI. I discussed the case Dr. Agnieszka Samson. ASSESSMENT/PLAN: A 41-year-old gentleman, who presents with apparently recurrent diverticulitis. 1. Diverticulitis. The patient had been sent out on Cipro and Flagyl during his last admission. I will switch agents to ertapenem. Dr. Bonilla is not on-call tonight. Should be contacted tomorr ow. I suppose it would be reasonable to hospitalize the patient until his elective hemicolectomy. 2. Recent Clostridium difficile. I will check his Clostridium difficile antigen. Part of this is due to his vague history. 3. Pain: Dilaudid patient-controlled analgesia, therefore high-risk. 4. Prophylaxis: Low molecular-weight heparin. 5. History of nephrolithiasis. He had nonobstructive calculi about [address] Will follow and will strain his urine. 6. History of Clostridium difficile. Will check Clostridium difficile antigen. DISPOSITION: Inpatient status. /[id number]/MODL
[2017-05-01] MEDS: VANCOMYCIN 125 MG/2.5 ML UDL PO SCH (22:52)
[2017-05-01] MEDS: ERTAPENEM 1 GM in NS 100 ML IV SCH (22:52)
[2017-05-01] MEDS: HYDROmorphONE/DILAUDID 6 MG/30 ML PCA IV PRN (23:58)
[2017-05-02] MEDS: ONDANSETRON 4 MG/2 ML VIAL IVP PRN ×3 (02:28→16:15)
[2017-05-02 04:30] LABS: % IMMATURE GRANULYOCYTES 0.5 % (0.0-1.1); ABSOLUTE IMMATURE GRANULOCYTES 0.06 10^3/uL (0.00-0.10); ADD DIFF? NO; ADD MORPH? NO; ADD SCAN? NO; ATYPICAL LYMPHOCYTE FLAG 0 (0-99); FRAGMENT RBC FLAG 0 (0-99); HEMATOCRIT 37.9 % (40.0-51.0); HEMOGLOBIN 13.1 g/dL (13.7-17.5); LEFT SHIFT FLG 0 (0-99); LIPEMIA HEMOLYSIS FLAG 90 (0-99); MEAN CELL HEMOGLOBIN 30.5 pg (27.9-34.1); MEAN CELL HEMOGLOBIN CONCENTR. 34.6 g/dL (32.4-36.7); MEAN CELL VOLUME 88.3 fL (81.5-99.8); MEAN PLATELET VOLUME 9.3 fL (8.7-11.7); PLATELET CLUMPS FLAG 10 (0-99); PLATELET COUNT 220 10^3/uL (150-400); RED BLOOD CELL COUNT 4.29 10^6/uL (4.40-6.38); RED CELL DISTRIBUTION WIDTH 13.3 % (11.5-15.2)
[2017-05-02 04:42] LABS: ANION GAP 10 mEq/L (8-16); CALCIUM 9.2 mg/dL (8.5-10.4); CARBON DIOXIDE 24 mEq/l (22-31); CHLORIDE 105 mEq/L (97-110); CREATININE 1.1 mg/dL (0.7-1.3); GLOMERULAR FILTRATION RATE > 60; GLUCOSE 114 mg/dL (70-100); POTASSIUM 4.7 mEq/L (3.5-5.2); SODIUM 139 mEq/L (134-144)
[2017-05-02] MEDS ORDERED: LORazepam 2 MG/ML INJ IVP ONE (06:00)
[2017-05-02] MEDS: VANCOMYCIN 125 MG/2.5 ML UDL PO SCH ×2 (10:21→20:28)
[2017-05-02] MEDS: ENOXAPARIN 40 MG/0.4 ML SYR SC SCH (10:21)
--- NOTE | 2017-05-02 11:12 | HOSPPROG ---
Hospitalist Progress Note Assessment/Plan: DIAGNOSES: -Acute exacerbation of abdominal pain in the setting of frequent recurrences of abdominal pain, calmly diagnosed as diverticulitis and/or kidney stone cause -At this time the patient was already on antibiotics following a recent admission for presumed diverticulitis. He did have a high white blood cell count, though no fever, and describes to me that his presenting symptoms included pain at the right flank area, with frequent passing of kidney stones at home recently including 2 in the last several days ?? possibly acute renal colic at this time as opposed to recurrence of diverticulitis while already on antibiotic -Pain is improved notably today and some decrease in white blood cell count, though he still has very poor appetite and elevated white blood cell count -History of complicated and recurrent diverticulitis with at least 1 episode involving perforation. The patient has been seen by numerous physicians including several surgeons here at this hospital. Surgery has been recommended to him and at this time he Continues to be helpful he can do anything possible to avoid surgery. -History of kidney stones in the past requiring at least 1 surgical extraction of a 5 mm stone. PLANS: -Continue hydration, and empiric antibiotics at this time for possible diverticulitis -Check UA for any possible hematuria -If continues having pain that does not resolve may need to consider reimaging to check on status of his diverticular disease as well as looking for kidney stones SUBJECTIVE: still having some pain but notably less than yesterday. 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 In talking to him today he does tell me that his presenting pain for this admission was really of right flank pain and that he has been passing some kidney stones at home recently including 2 in the past week. OBJECTIVE Vitals reviewed: Stable without fever Exam: alert oriented, fairly relaxed skin warm dry color ok resps not labored lungs clear BSs heart regular abd soft nondistended nontender, bowel sounds present limbs warm, no edema iv site ok Objective: Vital Signs Temp Pulse Resp BP Pulse Ox 36.7 C 61 14 110/72 94 05/02/17 10:00 05/02/17 10:00 05/02/17 10:00 05/02/17 10:00 05/02/17 10:00 Laboratory Results 05/02/17 04:07 05/02/17 04:07 05/01/17 05/02/17 05/03/17 06:59 06:59 06:59 Intake Total 1000 Output Total 250 Balance 750 ICD10 Worksheet Patient Problems: Problems Problem Status Onset Abdominal pain Acute C. difficile diarrhea Acute 07/24/16 C. difficile diarrhea Acute ~02/06/17 Chronic pain Acute Colitis Acute Colitis Acute Dehydration Acute Diverticulitis Acute Diverticulitis Acute Elevated lipase Acute Free intraperitoneal air Acute Intractable vomiting Acute Leukocytosis Acute Nausea and vomiting Acute Perforation of sigmoid colon Acute Right distal ureteral calculus Acute Severe sepsis Acute Severe sepsis Acute Sigmoid diverticulitis Acute Vomiting Acute Vomiting and diarrhea Acute
[2017-05-02] MEDS: NS 1,000 ML IV SCH (12:16)
--- NOTE | 2017-05-02 13:26 | EDPHY ---
H & P Stated Complaint: "diverticulits attack". Time Seen by Provider: 05/01/17 20:55 HPI/ROS: CHIEF COMPLAINT: Abdominal pain and vomiting HISTORY OF PRESENT ILLNESS: This is a 41-year-old male with a history of recurrent diverticulitis. He also has a history of nephrolithiasis and recent Clostridium difficile. He presents tonight with abdominal pain and vomiting. This will be his 10th visit this year for similar symptoms. He has been hospitalized 3 times so far this month. His last hospitalization was April [address] scan of the abdomen showed diverticulitis with micro perforation. He underwent surgical evaluation and elective colectomy has been recommended. He had been planning this procedure but became symptomatic over 12 hours ago and has not been able to control his vomiting and lower abdominal pain. His pain is located in the left lower quadrant. It is typical of pain that he has experienced previously both with diverticulitis and kidney stones. He has not had fever. He has had persistent nausea and vomiting. He had an episode of diarrhea earlier today, no blood noted in his stool. REVIEW OF SYSTEMS: A ten point review of systems was performed and is negative with the exception of the items mentioned in the HPI. Past medical history: 1. Recurrent diverticulitis 2. Chronic nephrolithiasis 3. History of Clostridium difficile colitis 4. Prior neck injury Past surgical history: Placement of ureteral stent, removed earlier in 2016 Family history: Mother with history of diverticulitis Social history: He currently is living with his mother. He denies the use of alcohol. He has smoked in the past but does not smoke currently. He does use marijuana. General Appearance: Alert. Vital signs reviewed. Blood pressure 133/82. Eyes: Pupils equal and round, no conjunctival injection, no discharge. Anicteric. ENT, Mouth: Mucous membranes are moist, no oropharyngeal erythema or edema. Neck: No lymphadenopathy, supple. Respiratory: Lungs are clear to auscultation; no wheezes, rales, or rhonchi. Cardiovascular: Regular rate and rhythm; no murmur, rub, or gallop. Gastrointestinal: Abdomen is soft with tenderness in the left lower quadrant, no guarding,, no masses or organomegaly, bowel sounds present. Skin: Warm and dry, no rashes on exposed skin, normal color. Back: Nontender to palpation over the thoracolumbar spine. No CVAT. Extremities: No lower extremity edema, no calf tenderness or swelling. Neurological: Alert and oriented. Moving all four extremities easily and equally. Psychiatric: Normal affect. - Personal History Current Tetanus/Diphtheria Vaccine: Yes Current Tetanus Diphtheria and Acellular Pertussis (TDAP): Yes Tetanus Vaccine Date: 2006 - Medical/Surgical History Hx Asthma: No Hx Chronic Respiratory Disease: No Hx Diabetes: No Hx Cardiac Disease: No Hx Renal Disease: No Hx Cirrhosis: No Hx Alcoholism: No Hx HIV/AIDS: No Hx Splenectomy or Spleen Trauma: No Other PMH: PMH: Renal stones and ureterolithiasis requiring stent, IBS, diverticulitis with microperforation, Clostridium difficile. PSH:HEMORRHOIDS, R ureter stent 12/20 - Social History Smoking Status: Former smoker Constitutional: Initial Vital Signs Temperature (C) 36.8 C 05/01/17 20:42 Heart Rate 93 05/01/17 20:42 Respiratory Rate 18 05/01/17 20:42 Blood Pressure 133/82 H 05/01/17 20:42 O2 Sat (%) 99 05/01/17 20:42 O2 Delivery Mode Room Air O2 (L/minute) 2 Allergies/Adverse Reactions: bee stings, wasp stings Allergy (Intermediate, Uncoded 04/17/17 05:54) swelling Home Medications: Medication Instructions Recorded Ondansetron Odt [Zofran Odt 4 mg 4 mg PO Q4HRS PRN #30 tab 04/18/17 (*)] Vancomycin [Vancomycin (*)] 125 mg PO BID #26 cap 04/18/17 oxyCODONE IR [Oxycodone Ir (*)] 10 mg PO Q4HRS PRN #30 tab 04/18/17 Medical Decision Making ED Course/Re-evaluation: Somewhat difficult as sort out the etiology of his abdominal pain as he experiences pain with his diverticulitis and his nephrolithiasis. He has had multiple abdominal CT scans in the past, with the most recent 1 being mid month. I am not repeating a CT scan at this point in time. The other confounding factor is that he has been recently diagnosed with C diff and had an episode of diarrhea earlier today. He is on oral vancomycin. On examination he does not have a surgical abdomen at this point in time. In the emergency department he received normal saline IV, 2 mg of IV Dilaudid, and IV Zofran. He continues with some abdominal pain although he had improvement with the Dilaudid. He is being admitted to the hospital for symptom control, possible hemicolectomy if this can be arranged (Dr. Bonilla is his surgeon and will be contacted tomorrow, sooner if needed). Differential Diagnosis: I considered a differential diagnosis that includes but is not limited to nephrolithiasis/ureterolithiasis, diverticulitis, perforated viscus, bowel obstruction, Clostridium difficile, and drug-seeking behavior. 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 mg IV PRN PRN; Protocol PRN Reason: Pain, Severe Unable to Take PO Stop: 05/11/17 21:56 Last Admin: 05/01/17 23:58 Dose: 6 mg Ertapenem 1 gm/ Sodium (Chloride) 100 mls @ 200 mls/hr IV DAILY@2100 LINDSEY PRN Reason: Protocol Stop: 05/31/17 21:59 Last Admin: 05/01/17 22:52 Dose: 100 mls Sodium Chloride (Ns) 1,000 mls @ 150 mls/hr IV CONT LINDSEY Stop: 10/28/17 21:59 Last Admin: 05/02/17 12:16 Dose: 1,000 mls Ondansetron HCl (Zofran) 4 mg IVP Q4HRS PRN PRN Reason: Nausea/Vomiting, Can't Take PO Stop: 10/28/17 21:57 Last Admin: 05/02/17 12:34 Dose: 4 mg Promethazine HCl (Phenergan) 6.25 - 12.5 mg IVP Q6HRS PRN PRN Reason: Nausea/Vomiting, Use 2nd Stop: 10/28/17 21:57 Last Admin: 05/02/17 05:54 Dose: 12.5 mg Vancomycin HCl (Vancocin Oral Liquid) 125 mg PO BID LINDSEY Stop: 05/31/17 22:29 Last Admin: 05/02/17 10:21 Dose: 125 mg Discontinued Medications Hydromorphone HCl (Dilaudid) 1 mg IVP EDNOW ONE Stop: 05/01/17 21:22 Last Admin: 05/01/17 21:24 Dose: 1 mg Hydromorphone HCl (Dilaudid) 1 mg IVP EDNOW ONE Stop: 05/01/17 22:03 Last Admin: 05/01/17 22:09 Dose: 1 mg Sodium Chloride (Ns) 1,000 mls @ 0 mls/hr IV EDNOW ONE; Wide Open PRN Reason: Protocol Stop: 05/01/17 21:23 Last Admin: 05/01/17 21:24 Dose: 1,000 mls Lorazepam (Ativan Injection) 1 mg IVP ONCE ONE Stop: 05/02/17 06:01 Last Admin: 05/02/17 06:05 Dose: 1 mg Ondansetron HCl (Zofran) 4 mg IVP EDNOW ONE Stop: 05/01/17 21:22 Last Admin: 05/01/17 21:24 Dose: 4 mg Departure - Departure Disposition: [facility] Inpatient Acute Clinical Impression: Diverticulitis Qualifiers: Diverticulitis site: unspecified part of intestinal tract Diverticulitis bleeding: without bleeding Diverticulitis complication: unspecified complication status Qualified Code(s): K57.92 - Diverticulitis of intestine, part unspecified, without perforation or abscess without bleeding Condition: Fair
[2017-05-02] MEDS: HYDROmorphONE/DILAUDID 6 MG/30 ML PCA IV PRN (15:17)
[2017-05-02] MEDS: ERTAPENEM 1 GM in NS 100 ML IV SCH (20:28)
[2017-05-03] MEDS ORDERED: LORazepam 2 MG/ML INJ IVP ONE (00:06)
[2017-05-03] MEDS: VANCOMYCIN 125 MG/2.5 ML UDL PO SCH (07:29)
[2017-05-03] MEDS: ENOXAPARIN 40 MG/0.4 ML SYR SC SCH ×2 (07:29→11:43)
[2017-05-03 09:29] VITALS: BP 126/82; PULSE 65; RESP 18; TEMP 98.3; O2SAT 94
--- NOTE | 2017-05-03 10:13 | PDDCSUM ---
Discharge Summary Discharge Summary: DISCHARGE DIAGNOSES: -Acute lower abdominal and flank pain of uncertain etiology, consider recurrence of diverticulitis pain versus passed kidney stone -Recent episode of recurrent diverticulosis diagnosed, symptoms resolving -History of previous kidney stones and with 2 stones past at home just recently HOSPITAL COURSE SUMMARY: this patient has multiple hospital admissions for episodes of abdominal pain and has been documented to have recurrent bouts of diverticulitis including at least 1 with perforation and free air in the abdomen. He has had no surgery for diverticulitis. He was admitted here earlier this month with an episode of lower abdominal pain and diagnosed at that time with diverticulitis again. He improved with antibiotic therapy and went home taking oral antibiotics. However he came back in at this time with recurrence of right lower quadrant and right low flank pain. There was concern that this may be somehow a complication of his pancreatitis. However the notably the patient did not have fever and was not terribly tender on examination. In addition to all of this the patient mentions having passed 2 kidney stones at home over the past couple of weeks which he has actually seen. He does have a history of known kidney stones including 1 surgically removed in the past. At this time is unclear whether his pain was related to diverticulitis or kidney stone. However given the frequency of his passing stones the location of the pain and the lack of focal tenderness or fever here I suspect that this is more likely a kidney stone. He was continued on antibiotic here as this was still indicated from the original diverticulitis diagnosis previously. He was hydrated and took clear liquids without difficulty. His pain is completely resolved at this time is not using any more pain medicine. There have been no fevers, no abnormalities of vital signs, and his renal function was good. He is stable for discharge to home at present. Going home he will progress to a starch diet and then gradually progressed back to his usual high-fiber diet as he tolerates it, and he will as usual avoid seeds and nuts and undercooked legumes. PENDING TEST RESULTS: None MEDICATION CHANGES: None FOLLOW-UP PLAN: With Dr. Turpin next week for follow-up of his diverticulitis episode with Dr. Mal Ya for his kidney stone issues Greater than 35 minutes bedside and care coordination time today
== END 2017-05-03 14:20 | disposition home or self-care (01) | DRG 392 ==
LOC: F3E 22:20
PROVIDERS: ADMIT Internal Medicine; ATTEND Internal Medicine
DX: R10.32 Left lower quadrant pain (principal); N20.0 Calculus of kidney; K57.92 Diverticulitis of intestine, part unspecified, without perforation or abscess without bleeding; Z87.891 Personal history of nicotine dependence
CPT/HCPCS: 96374; J1170; J1335; J1650; J2060; J2405; J2550

== ENCOUNTER 2017-06-06 19:33 | Emergency (ER) | payer MEDICAID ==
[2017-06-06] MEDS ORDERED: ONDANSETRON 4 MG/2 ML VIAL IVP ONE (19:51)
[2017-06-06] MEDS ORDERED: NS 1,000 ML IV ONE (19:51)
[2017-06-06] MEDS ORDERED: PROMETHAZINE HCL 25 MG/ML INJ IVP ONE (19:51)
[2017-06-06] MEDS ORDERED: HYDROmorphONE/DILAUDID 1 MG/ML INJ ONE (20:05)
[2017-06-06] MEDS ORDERED: HYDROmorphONE/DILAUDID 1 MG/ML INJ IVP ONE ×2 (20:06→20:49)
--- NOTE | 2017-06-06 20:06 | EDPHY ---
H & P Smoking Status: Former smoker Time Seen by Provider: 06/06/17 19:47 HPI/ROS: HPI Abdominal pain, vomiting. 42-year-old male by private vehicle. He is well known to our emergency department and hospital staff. He has been admitted multiple times for abdominal pain, vomiting and issues that are thought to be related to either kidney stones or diverticulitis. He was last admitted in late April for similar complaints. He was put on oral vancomycin. He reports that he finishes oral vancomycin yesterday. He reports that yesterday afternoon he started feeling nauseous and was developing what he describes as cramping and aching throughout his abdomen. This persisted and worsened through today. He then started vomiting at 6 and his abdominal pain got much worse. He describes this pain as typical of his previous episodes of diverticulitis pain. He also reports having some diarrhea earlier this evening. He reports he took some nausea medication at home but this did not help him. Evaluating him he is very emotional and shivering. He looks like somebody was withdrawing from narcotics but states that he does not take narcotic pain medication at home. ROS: Constitutional: No fever, no chills. No weakness. Eyes: No discharge. No changes in vision. ENT: No sore throat. No nasal congestion or rhinorrhea. Respiratory: No cough. No shortness of breath. Cardiac: No chest pain, no palpitations. Gastrointestinal: As above. Genitourinary: No hematuria. No dysuria or increased frequency with urination. Musculoskeletal: No back pain. No neck pain. No myalgias or arthralgias. Skin: No rashes. Neurological: No headache. No focal weakness or altered sensation. Past medical history: He reports diverticulitis and kidney stones. Recent diagnosis of Clostridium difficile toxicity on vancomycin. Social history: No alcohol, smokes marijuana. Lives with his mother. He is not working. Physical Exam: General Appearance: Alert, shaking, very emotional. This patient is responding to questions appropriately and in full sentences. This patient appears well-hydrated and well-nourished. Eyes: Pupils equal and round no pallor or injection. No lid edema, erythema or injection. Respiratory: There are no retractions, lungs are clear to auscultation with good air movement bilaterally. Cardiovascular: Regular rate and rhythm. No murmur. Gastrointestinal: Abdomen is soft with mild to moderate vague tenderness on palpation throughout, no masses, bowel sounds normal. No focal tenderness at McBurney's point. No Funez sign. Neurological: Motor sensory function is grossly intact. Cranial nerves are normal. Gait is normal. Skin: Warm and dry, no rashes. Musculoskeletal: Neck is supple and nontender. Extremities are symmetrical. All joints range without pain or impingement. Psychiatric: No agitation. No depression. Database: EKG: Imaging: CT scan of abdomen and pelvis with IV contrast: There is a small amount of transmural wall thickening involving the sigmoid colon. No abscess. No free air. Bilateral kidney stones are noted. No evidence of obstructive uropathy. Study otherwise normal. Results were discussed with staff radiologist Dr. Dom Thompson. Procedures: Emergency department course: I have reviewed his medical records and vital signs. He is requesting IV narcotics. He states that it takes at least 2 mg of IV hydromorphone to get his pain under control. He will initially be given 1 mg of IV hydromorphone, 6.25 mg of IV Phenergan and 4 mg of IV Zofran. IV placed in started with 1-2 L of IV normal saline to be given over the next 1-[address] He cons[address] to [address] imaging. 9:00 p.m., Patient is requesting more pain medication. Repeat abdominal exam: Soft, mild and vague tenderness on palpation throughout. The patient will be given another 1 mg of IV hydromorphone and then reassessed for disposition. Patient's care was turned over to Dr. Agnieszka Samson at this time. Differential Diagnosis: The differential diagnosis on this patient includes but is not limited to cyclic vomiting, chronic pain syndrome, diverticulitis. This represents a partial list of diagnoses considered. These considerations are based on history , physical exam, past history, reassessment and diagnostic testing. (Abraham Raymundo) Constitutional: Initial Vital Signs Temperature (C) 36.6 C 06/06/17 19:38 Heart Rate 100 06/06/17 19:38 Respiratory Rate 20 06/06/17 19:38 Blood Pressure 152/102 H 06/06/17 19:38 O2 Sat (%) 94 06/06/17 19:38 O2 Delivery Mode Room Air O2 (L/minute) 2 Allergies/Adverse Reactions: bee stings, wasp stings Allergy (Intermediate, Uncoded 06/06/17 19:37) swelling Home Medications: Medication Instructions Recorded Ondansetron Odt [Zofran Odt 4 mg 4 mg PO Q4HRS PRN #30 tab 04/18/17 (*)] Vancomycin [Vancomycin (*)] 125 mg PO BID #26 cap 04/18/17 oxyCODONE IR [Oxycodone Ir (*)] 10 mg PO Q4HRS PRN #30 tab 04/18/17 Medical Decision Making - Diagnostics Imaging Results: Imaging Impressions Abdomen CT 06/06/17 19:57 Impression: 1. Focal transmural wall thickening sigmoid colon with pericolonic stranding, scarring from prior diverticulitis versus early acute diverticulitis. 2. Nonobstructing nephrolithiasis bilaterally. Results called to Dr. Paz at 9:00 PM. Other Provider: I assumed care of this patient from Dr. Raymundo at 9:00 p.m.. I examined the patient at 9:45 p.m. he has not had more vomiting. His abdominal pain is improved. We reviewed the CT scan results, which had been relayed to him previously. He was pleased to learned that he did not have an abscess or perforation. On exam, he has diffuse abdominal tenderness, no guarding or peritoneal signs. I feel that he can safely return home. He has been able to arrange a ride and is being discharged in improved condition. (Agnieszka Samson) - Data Points Laboratory Results: Laboratory Results 06/06/17 20:00 06/06/17 20:00 06/06/17 06/06/17 20:00 20:00 WBC 13.73 10^3/uL H 10^3/uL (3.80-9.50) RBC 5.01 10^6/uL 10^6/uL (4.40-6.38) Hgb 15.2 g/dL g/dL (13.7-17.5) Hct 42.2 % % (40.0-51.0) MCV 84.2 fL fL (81.5-99.8) MCH 30.3 pg pg (27.9-34.1) MCHC 36.0 g/dL g/dL (32.4-36.7) RDW 13.0 % % (11.5-15.2) Plt Count 230 10^3/uL 10^3/uL (150-400) MPV 9.9 fL fL (8.7-11.7) Neut % (Auto) 77.9 % H % (39.3-74.2) Lymph % (Auto) 16.2 % % (15.0-45.0) [place] % (Auto) 4.4 % L % (4.5-13.0) Eos % (Auto) 0.9 % % (0.6-7.6) Baso % (Auto) 0.3 % % (0.3-1.7) Nucleat RBC Rel Count 0.0 % % (0.0-0.2) Absolute Neuts (auto) 10.70 10^3/uL H 10^3/uL (1.70-6.50) Absolute Lymphs (auto) 2.22 10^3/uL 10^3/uL (1.00-3.00) Absolute Monos (auto) 0.60 10^3/uL 10^3/uL (0.30-0.80) Absolute Eos (auto) 0.13 10^3/uL 10^3/uL (0.03-0.40) Absolute Basos (auto) 0.04 10^3/uL 10^3/uL (0.02-0.10) Absolute Nucleated RBC 0.00 10^3/uL 10^3/uL (0-0.01) Immature Gran % 0.3 % % (0.0-1.1) Immature Gran # 0.04 10^3/uL 10^3/uL (0.00-0.10) Sodium 141 mEq/L mEq/L (134-144) Potassium 4.2 mEq/L mEq/L (3.5-5.2) Chloride 107 mEq/L mEq/L (97-110) Carbon Dioxide 19 mEq/l L mEq/l (22-31) Anion Gap 15 mEq/L mEq/L (8-16) BUN 17 mg/dL mg/dL (7-23) Creatinine 1.2 mg/dL mg/dL (0.7-1.3) Estimated GFR > 60 Glucose 132 mg/dL H mg/dL (70-100) Calcium 10.2 mg/dL mg/dL (8.5-10.4) Total Bilirubin 0.9 mg/dL mg/dL (0.1-1.4) Conjugated Bilirubin 0.3 mg/dL mg/dL (0.0-0.5) Unconjugated Bilirubin 0.6 mg/dL mg/dL (0.0-1.1) AST 32 IU/L IU/L (17-59) ALT 82 IU/L H IU/L (21-72) Alkaline Phosphatase 96 IU/L IU/L (38-126) Total Protein 7.5 g/dL g/dL (6.3-8.2) Albumin 4.8 g/dL g/dL (3.5-5.0) Lipase 175 IU/L IU/L (23-300) Medications Given: Discontinued Medications Hydromorphone HCl (Dilaudid) 1 mg IVP EDNOW ONE Stop: 06/06/17 20:07 Last Admin: 06/06/17 20:09 Dose: 1 mg Hydromorphone HCl (Dilaudid) 1 mg IVP EDNOW ONE Stop: 06/06/17 20:50 Last Admin: 06/06/17 20:58 Dose: 1 mg Sodium Chloride (Ns) 1,000 mls @ 0 mls/hr IV EDNOW ONE; Wide Open PRN Reason: Protocol Stop: 06/06/17 19:52 Last Admin: 06/06/17 19:59 Dose: 1,000 mls Ondansetron HCl (Zofran) 4 mg IVP EDNOW ONE Stop: 06/06/17 19:52 Last Admin: 06/06/17 20:00 Dose: 4 mg Promethazine HCl (Phenergan) 6.25 mg IVP EDNOW ONE Stop: 06/06/17 19:52 Last Admin: 06/06/17 20:00 Dose: 6.25 mg Departure - Departure Disposition: Home, Routine, Self-Care Clinical Impression: Abdominal pain Qualifiers: Abdominal location: unspecified location Qualified Code(s): R10.9 - Unspecified abdominal pain Vomiting Qualifiers: Vomiting type: unspecified Vomiting Intractability: unspecified Nausea presence : unspecified Qualified Code(s): R11.10 - Vomiting, unspecified Condition: Good Instructions: Acute Abdominal Pain (ED), Abdominal Pain (ED) Additional Instructions: Follow-up with your primary doctor within 72 hours. Return to the Emergency Department for fever, chest pain, shortness of breath, increasing pain or other worsening of condition. Referrals: Satish Turpin MD [Primary Care Provider] - As per Instructions
[2017-06-06 20:09] LABS: % IMMATURE GRANULYOCYTES 0.3 % (0.0-1.1); ABSOLUTE IMMATURE GRANULOCYTES 0.04 10^3/uL (0.00-0.10); ADD DIFF? NO; ADD MORPH? NO; ADD SCAN? NO; ATYPICAL LYMPHOCYTE FLAG 30 (0-99); FRAGMENT RBC FLAG 0 (0-99); HEMATOCRIT 42.2 % (40.0-51.0); HEMOGLOBIN 15.2 g/dL (13.7-17.5); LEFT SHIFT FLG 0 (0-99); LIPEMIA HEMOLYSIS FLAG 90 (0-99); MEAN CELL HEMOGLOBIN 30.3 pg (27.9-34.1); MEAN CELL VOLUME 84.2 fL (81.5-99.8); MEAN PLATELET VOLUME 9.9 fL (8.7-11.7); PLATELET CLUMPS FLAG 10 (0-99); PLATELET COUNT 230 10^3/uL (150-400); RED BLOOD CELL COUNT 5.01 10^6/uL (4.40-6.38)
[2017-06-06 20:22] VITALS: RESP 18
[2017-06-06 20:22] LABS: ALANINE AMINOTRANSFERASE 82 IU/L (21-72); ALBUMIN 4.8 g/dL (3.5-5.0); ALKALINE PHOSPHATASE 96 IU/L (38-126); ANION GAP 15 mEq/L (8-16); ASPARTATE AMINOTRANSFERASE 32 IU/L (17-59); BILIRUBIN,TOTAL 0.9 mg/dL (0.1-1.4); BILIRUBIN-CONJUGATED 0.3 mg/dL (0.0-0.5); BILIRUBIN-UNCONJUGATED 0.6 mg/dL (0.0-1.1); CALCIUM 10.2 mg/dL (8.5-10.4); CARBON DIOXIDE 19 mEq/l (22-31); CHLORIDE 107 mEq/L (97-110); CREATININE 1.2 mg/dL (0.7-1.3); GLOMERULAR FILTRATION RATE > 60; GLUCOSE 132 mg/dL (70-100); POTASSIUM 4.2 mEq/L (3.5-5.2); SODIUM 141 mEq/L (134-144); TOTAL PROTEIN 7.5 g/dL (6.3-8.2)
[2017-06-06] MEDS ORDERED: IOPAMIDOL (ISOVUE-300) 100 ML BTL ONE (20:24)
[2017-06-06] MEDS ORDERED: HYDROmorphONE/DILAUDID 2 MG/ML INJ ONE (20:54)
[2017-06-06 22:05] VITALS: BP 154/84; PULSE 82; TEMP 98; O2SAT 93
== END 2017-06-06 22:04 | disposition home or self-care (01) ==
DX: R11.10 Vomiting, unspecified (principal); R10.9 Unspecified abdominal pain; E86.9 Volume depletion, unspecified; Z87.891 Personal history of nicotine dependence
CPT/HCPCS: 96374; J1170; J2405; J2550; Q9967

== ENCOUNTER 2017-08-31 08:11 | Emergency (ER) | payer MEDICAID ==
[2017-08-31] MEDS ORDERED: NS 1,000 ML IV ONE ×2 (08:44→08:51)
[2017-08-31] MEDS ORDERED: ONDANSETRON 4 MG/2 ML VIAL IVP ONE (08:44)
--- NOTE | 2017-08-31 08:45 | EDPHY ---
H & P Time Seen by Provider: 08/31/17 08:40 HPI/ROS: CHIEF COMPLAINT: Abdominal pain HISTORY OF PRESENT ILLNESS: Patient of Dr. Bonilla with history of diverticulitis. Last abdominal CT scan was 06/06/2017, as he had total of [address] scans in 2017 in our facility. He was doing well yesterday and had small Jaye dinner. He awakened at 5:00 a.m. today with nausea vomiting and severe abdominal pain which he says is diffuse and like his previous episodes. Not associated with diarrhea. Worse with trying to eat or drink. Symptoms severe. REVIEW OF SYSTEMS: Eye: no change in vision ENT: no sore throat Cardiac: no chest pain or syncope Pulmonary: no cough or SOB Abdomen: HPI, no sx Musculoskeletal: no back pain Skin: no rash Neuro: no headache Constitutional: no fever : no urinary symptoms A comprehensive 10 point review of systems is otherwise negative aside from elements mentioned in the history of present illness. PAST MEDICAL HISTORY: Includes diverticulitis, multiple episodes of nausea and vomiting. C diff colitis, nephrolithiasis. Social history: No recent alcohol General Appearance: Alert and conversant, cooperative. Eyes: No scleral icterus. ENT, Mouth: Dry mucous membranes Respiratory: Normal respiratory effort, breath sounds equal, lungs are clear to auscultation. Cardiovascular: Regular rate and rhythm. Gastrointestinal: Abdomen is soft and non tender. Bowel sounds present, not distended, no rebound or guarding. Neurological: Alert and oriented x3. Normally conversant. Face symmetric, normal movement and sensation in all extremities. Skin: Warm and dry, no rashes. Musculoskeletal: No peripheral edema and no joint swelling. Psychiatric: Very anxious. Emergency Department course/MDM: Dilaudid 1 mg IV, Zofran 4 mg IV, Haldol 2.5 mg IV, Benadryl. Patient's clinical exam does not suggest severe diverticulitis or acute surgical abdominal process, plan for symptomatic treatment and then re- evaluation. 1040: Patient feels much better. His abdominal exam is normal now without any tenderness. He says he feels a lot better and wants to eat and drink. Labs discussed with patient. His lipase was noted to be slightly elevated but he does not have any epigastric discomfort or pain. I think it is reasonable to try eating and drinking and send him home if he is successful; patient also wants to try this plan. Smoking Status: Former smoker Constitutional: Initial Vital Signs Temperature (C) 36.9 C 08/31/17 08:14 Heart Rate 95 08/31/17 08:14 Respiratory Rate 14 08/31/17 08:14 Blood Pressure 171/104 H 08/31/17 08:14 O2 Sat (%) 98 08/31/17 08:14 O2 Delivery Mode Room Air O2 (L/minute) 2 Allergies/Adverse Reactions: bee stings, wasp stings Allergy (Intermediate, Uncoded 06/06/17 19:37) swelling Home Medications: Medication Instructions Recorded NK [No Known Home Meds] 08/31/17 Medical Decision Making Differential Diagnosis: Differential considered including but not limited to cyclic vomiting, bowel obstruction, pancreatitis, diverticulitis, appendicitis, gastroenteritis. - Data Points Laboratory Results: Laboratory Results 08/31/17 08:35 08/31/17 08:35 08/31/17 08/31/17 08:35 08:35 WBC 19.04 10^3/uL H 10^3/uL (3.80-9.50) RBC 5.43 10^6/uL 10^6/uL (4.40-6.38) Hgb 17.1 g/dL g/dL (13.7-17.5) Hct 46.6 % % (40.0-51.0) MCV 85.8 fL fL (81.5-99.8) MCH 31.5 pg pg (27.9-34.1) MCHC 36.7 g/dL g/dL (32.4-36.7) RDW 12.9 % % (11.5-15.2) Plt Count 302 10^3/uL 10^3/uL (150-400) MPV 9.3 fL fL (8.7-11.7) Neut % (Auto) 79.7 % H % (39.3-74.2) Lymph % (Auto) 14.3 % L % (15.0-45.0) [place] % (Auto) 4.7 % % (4.5-13.0) Eos % (Auto) 0.4 % L % (0.6-7.6) Baso % (Auto) 0.5 % % (0.3-1.7) Nucleat RBC Rel Count 0.0 % % (0.0-0.2) Absolute Neuts (auto) 15.18 10^3/uL H 10^3/uL (1.70-6.50) Absolute Lymphs (auto) 2.73 10^3/uL 10^3/uL (1.00-3.00) Absolute Monos (auto) 0.89 10^3/uL H 10^3/uL (0.30-0.80) Absolute Eos (auto) 0.07 10^3/uL 10^3/uL (0.03-0.40) Absolute Basos (auto) 0.10 10^3/uL 10^3/uL (0.02-0.10) Absolute Nucleated RBC 0.00 10^3/uL 10^3/uL (0-0.01) Immature Gran % 0.4 % % (0.0-1.1) Immature Gran # 0.07 10^3/uL 10^3/uL (0.00-0.10) Sodium 146 mEq/L H mEq/L (134-144) Potassium 4.7 mEq/L mEq/L (3.5-5.2) Chloride 108 mEq/L mEq/L (97-110) Carbon Dioxide 20 mEq/l L mEq/l (22-31) Anion Gap 18 mEq/L H mEq/L (8-16) BUN 15 mg/dL mg/dL (7-23) Creatinine 1.2 mg/dL mg/dL (0.7-1.3) Estimated GFR > 60 Glucose 149 mg/dL H mg/dL (70-100) Calcium 10.9 mg/dL H mg/dL (8.5-10.4) Phosphorus 2.5 mg/dL mg/dL (2.5-4.5) Total Bilirubin 0.9 mg/dL mg/dL (0.1-1.4) Conjugated Bilirubin 0.2 mg/dL mg/dL (0.0-0.5) Unconjugated Bilirubin 0.7 mg/dL mg/dL (0.0-1.1) AST 39 IU/L IU/L (17-59) ALT 65 IU/L IU/L (21-72) Alkaline Phosphatase 100 IU/L IU/L (38-126) Total Protein 7.9 g/dL g/dL (6.3-8.2) Albumin 4.9 g/dL g/dL (3.5-5.0) Lipase 747 IU/L H IU/L (23-300) Medications Given: Discontinued Medications Diphenhydramine HCl (Benadryl Injection) 25 mg IVP EDNOW ONE Stop: 08/31/17 08:52 Last Admin: 08/31/17 09:00 Dose: 25 mg Haloperidol Lactate (Haldol Injection) 2.5 mg IVP EDNOW ONE Stop: 08/31/17 08:52 Last Admin: 08/31/17 08:59 Dose: 2.5 mg Hydromorphone HCl (Dilaudid) 1 mg IVP EDNOW ONE Stop: 08/31/17 08:52 Last Admin: 08/31/17 08:58 Dose: 1 mg Sodium Chloride (Ns) 1,000 mls @ 0 mls/hr IV ONCE ONE PRN Reason: Wide Open Stop: 08/31/17 08:45 Last Admin: 08/31/17 08:47 Dose: 1,000 mls Sodium Chloride (Ns) 1,000 mls @ 0 mls/hr IV EDNOW ONE; Wide Open PRN Reason: Protocol Stop: 08/31/17 08:52 Last Admin: 08/31/17 09:01 Dose: 1,000 mls Ondansetron HCl (Zofran) 4 mg IVP EDNOW ONE Stop: 08/31/17 08:45 Last Admin: 08/31/17 08:47 Dose: 4 mg Departure - Departure Disposition: Home, Routine, Self-Care Clinical Impression: Nausea and vomiting Qualifiers: Vomiting type: unspecified Vomiting Intractability: non-intractable Qualified Code(s): R11.2 - Nausea with vomiting, unspecified Abdominal pain Qualifiers: Abdominal location: generalized Qualified Code(s): R10.84 - Generalized abdominal pain Condition: Good Instructions: Acute Nausea and Vomiting (ED), Acute Abdominal Pain (ED) Referrals: Satish Turpin MD [Primary Care Provider] - As per Instructions
[2017-08-31 08:49] LABS: PLATELET COUNT 302 10^3/uL (150-400)
[2017-08-31] MEDS ORDERED: HALOPERIDOL LACT 5 MG/ML INJ IVP ONE (08:51)
[2017-08-31] MEDS ORDERED: HYDROmorphONE/DILAUDID 1 MG/ML INJ IVP ONE (08:51)
[2017-08-31 12:19] VITALS: BP 110/75; PULSE 74; RESP 16; TEMP 97.9; O2SAT 96
== END 2017-08-31 12:19 | disposition home or self-care (01) ==
DX: R11.2 Nausea with vomiting, unspecified (principal); R10.84 Generalized abdominal pain; E86.9 Volume depletion, unspecified; Z87.891 Personal history of nicotine dependence
CPT/HCPCS: 96374; J1170; J1200; J1630; J2405

== ENCOUNTER 2018-07-01 01:03 | Emergency (ER) | payer SELFPAY ==
[2018-07-01] MEDS ORDERED: KETOROLAC 30 MG/1 ML SDV IVP ONE (01:14)
[2018-07-01] MEDS ORDERED: HYDROmorphONE/DILAUDID 2 MG/ML INJ IVP ONE ×2 (01:14→02:38)
[2018-07-01] MEDS ORDERED: ONDANSETRON 4 MG/2 ML VIAL IVP ONE ×2 (01:14→02:57)
[2018-07-01] MEDS ORDERED: NS 1,000 ML IV ONE ×2 (01:14)
--- NOTE | 2018-07-01 01:15 | EDPHY ---
H & P Stated Complaint: abd pain Time Seen by Provider: 07/01/18 01:18 HPI/ROS: HPI The patient presents with left-sided flank and left abdominal pain which have been present for the last 1 week which became worse tonight. The pain is aching , constant, severe. Yesterday he developed hematuria which has persisted throughout the day today. He began vomiting about 1 hr ago. He took 2 doses of tramadol starting at 10:30 p.m. Last night. This did not improve his symptoms. He reports he is feeling constipated, he has not noted any fever at home. The patient has a history of recurrent episodes of diverticulitis which have been treated with antibiotics and have not required any surgical intervention. He does have a history of ureterolithiasis as well, requiring 1 operation previously. He believes this pain is related to ureterolithiasis. REVIEW OF SYSTEMS 10 systems were reviewed and negative with the exception of the elements mentioned in the history of present illness. PMHx: Diverticulitis, ureterolithiasis Soc Hx: Housed, mother brought him in PHYSICAL General Appearance: Alert, in obvious distress and writhing secondary to pain Eyes: Pupils equal and round no pallor or injection ENT, Mouth: Mucous membranes moist Respiratory: There are no retractions, lungs are clear to auscultation Cardiovascular: Regular rate and rhythm Gastrointestinal: Abdomen is soft and non-tender, no masses, bowel sounds normal Back: There is mild left-sided flank tenderness Neurological: A&O, moves all extremities Skin: Warm and dry, no rashes Musculoskeletal: Neck is supple non tender Extremities: symmetrical, full range of motion Psychiatric: Patient is oriented X 3, there is no agitation Source: Patient, Old records Exam Limitations: No limitations - Personal History Current Tetanus/Diphtheria Vaccine: Unsure Current Tetanus Diphtheria and Acellular Pertussis (TDAP): Unsure Tetanus Vaccine Date: 2006 - Medical/Surgical History Hx Asthma: No Hx Chronic Respiratory Disease: No Hx Diabetes: No Hx Cardiac Disease: No Hx Renal Disease: No Hx Cirrhosis: No Hx Alcoholism: No Hx HIV/AIDS: No Hx Splenectomy or Spleen Trauma: No Other PMH: PMH: Renal stones and ureterolithiasis requiring stent, IBS, diverticulitis with microperforation, Clostridium difficile. PSH:HEMORRHOIDS, R ureter stent 12/20 - Social History Smoking Status: Former smoker Constitutional: Initial Vital Signs Temperature (C) 36.5 C 07/01/18 01:05 Heart Rate 81 07/01/18 01:05 Respiratory Rate 16 07/01/18 01:05 Blood Pressure 152/97 H 07/01/18 01:05 O2 Sat (%) 98 07/01/18 01:05 O2 Delivery Mode Room Air O2 (L/minute) 2 Allergies/Adverse Reactions: bee stings, wasp stings Allergy (Intermediate, Uncoded 06/06/17 19:37) swelling Home Medications: Medication Instructions Recorded Ondansetron Odt [Zofran Odt 4 mg 4 mg PO Q4 PRN #10 tab 07/01/18 (*)] oxyCODONE IR [Oxycodone Ir (*)] 5 mg PO Q6H PRN #20 tab 07/01/18 Medical Decision Making - Diagnostics Imaging Results: Renal ultrasound demonstrates left hydroureter, discussed with Dr. Bailey of Radiology. Differential Diagnosis: 43-year-old male with history of diverticulitis and ureterolithiasis presents with left-sided flank pain for the last 1 week associated with hematuria for the last 2 days and worsening pain with vomiting tonight. Differential diagnosis includes ureterolithiasis, pyelonephritis, AAA, diverticulitis. In the emergency department, patient was given IV fluids, pain medication, antiemetics. Labs were checked. Labs demonstrated a leukocytosis on par with prior levels. He does also have an elevated lipase which raises suspicion for pancreatitis verses vomiting induced elevated lipase. UA with blood without any evidence of infection. The patient was in the emergency department for several hours. We discussed risks and benefits CT scan and have decided to perform ultrasound instead is the patient has had numerous CT scans. Ultrasound demonstrated left-sided hydroureter. He was offered admission to the hospital, however declined. Pain eventually improved and he was transitioned to p.o. Medication. I have encouraged him to seek follow-up with Urology. I suspect his pain is related to renal colic and less likely related to diverticulitis. I will give him treatments for renal colic. Of note, he responded poorly to Flomax in the past and does not want a prescription for this. - Data Points Laboratory Results: Laboratory Results 07/01/18 01:30 07/01/18 01:30 Medications Given: Discontinued Medications Hydromorphone HCl (Dilaudid) 0.5 mg IVP EDNOW ONE Stop: 07/01/18 01:15 Last Admin: 07/01/18 01:27 Dose: 0.5 mg Hydromorphone HCl (Dilaudid) 1 mg IVP EDNOW ONE Stop: 07/01/18 02:39 Last Admin: 07/01/18 02:52 Dose: 1 mg Sodium Chloride (Ns) 1,000 mls @ 0 mls/hr IV EDNOW ONE; Wide Open PRN Reason: Protocol Stop: 07/01/18 01:15 Last Admin: 07/01/18 01:26 Dose: 1,000 mls Sodium Chloride (Ns) 1,000 mls @ 0 mls/hr IV EDNOW ONE; Wide Open PRN Reason: Protocol Stop: 07/01/18 01:15 Last Admin: 07/01/18 02:51 Dose: 1,000 mls Lidocaine HCl 150 mg/ Sodium (Chloride) 115 mls @ 600 mls/hr IV EDNOW ONE Stop: 07/01/18 01:32 Last Admin: 07/01/18 01:48 Dose: 115 mls Ketorolac Tromethamine (Toradol) 15 mg IVP EDNOW ONE Stop: 07/01/18 01:15 Last Admin: 07/01/18 01:29 Dose: 15 mg Ondansetron HCl (Zofran) 4 mg IVP EDNOW ONE Stop: 07/01/18 01:15 Last Admin: 07/01/18 01:27 Dose: 4 mg Ondansetron HCl (Zofran) 4 mg IVP EDNOW ONE Stop: 07/01/18 02:58 Last Admin: 07/01/18 03:13 Dose: 4 mg Ondansetron HCl (Zofran Odt) 4 mg PO EDNOW ONE Stop: 07/01/18 05:21 Last Admin: 07/01/18 06:34 Dose: 4 mg Oxycodone HCl (Oxycodone Ir) 5 mg PO EDNOW ONE Stop: 07/01/18 05:21 Last Admin: 07/01/18 06:34 Dose: 5 mg Departure - Departure Disposition: Home, Routine, Self-Care Clinical Impression: Calculus of left kidney, Ureterolithiasis Condition: Good Instructions: Ureteral Stones (ED) Additional Instructions: I recommend that you drink plenty of fluids, approximately 2 L a day. I recommend you take ibuprofen 400 mg every 6 hr. You can take the pain pill that I have prescribed you if the pain is more severe. I would like for you to follow up with the urologist. Referrals: Satish Turpin MD [Primary Care Provider] - As per Instructions Soham Fenton MD [Medical Doctor] - As per Instructions Prescriptions: Ondansetron Odt [Zofran Odt 4 mg (*)] 4 mg PO Q4 PRN #10 tab PRN Reason: Nausea/Vomiting, Can'T Take Po oxyCODONE IR [Oxycodone Ir (*)] 5 mg PO Q6H PRN #20 tab PRN Reason: Pain, Breakthrough
[2018-07-01] MEDS ORDERED: LIDOCAINE 1% 150 MG in NS 100 ML IV ONE (01:21)
[2018-07-01 01:40] LABS: PLATELET COUNT 288 10^3/uL (150-400)
[2018-07-01] MEDS ORDERED: oxyCODONE IR 5 MG TAB PO ONE (05:20)
[2018-07-01] MEDS ORDERED: ONDANSETRON DISINTEGRATING 4 MG TAB PO ONE (05:20)
[2018-07-01] MEDS ORDERED: TAMSULOSIN HCL 0.4 MG CAP PO ONE (05:20)
[2018-07-01 06:38] VITALS: BP 118/78
== END 2018-07-01 06:54 | disposition home or self-care (01) ==
DX: N20.0 Calculus of kidney (principal); N13.4 Hydroureter; E86.9 Volume depletion, unspecified; Z87.442 Personal history of urinary calculi; Z87.19 Personal history of other diseases of the digestive system; Z87.891 Personal history of nicotine dependence
CPT/HCPCS: 96374; J1170; J1885; J2405